=== PATIENT | female | born 1965 | race Caucasian/White ===

== ENCOUNTER 2019-03-31 14:40 | Emergency (ER) | payer MEDICAID, SELFPAY | END 2019-03-31 21:40 | disposition admitted as inpatient to this hospital (09) | LOC: ER 04-30 12:13 | PROVIDERS: Emergency Provider Emergency Medicine; Family Provider Family Medicine | DX: F32.9 Major depressive disorder, single episode, unspecified (principal); R45.851 Suicidal ideations; F17.210 Nicotine dependence, cigarettes, uncomplicated | CPT/HCPCS: 36415; 80053; 80307; 84443; 85025; 99284; 99285 ==

== ENCOUNTER 2019-03-31 14:40 | Inpatient (IN) | payer MEDICAID, SELFPAY ==
[2019-03-31 16:10] VITALS: BP 121/73; PULSE 65; RESP 16; TEMP 36.4; O2SAT 99; BMI 24.1
--- NOTE | 2019-03-31 16:35 | ED_ITS ---
Documented by User: SCOTTIE Diaz 04/01/19 07:03 HPI - Psych General: Chief Complaint: Psychiatric Symptoms Stated Complaint: SI Time Seen by Provider: 03/31/19 16:30 Source: patient Mode of arrival: ambulatory Limitations: no limitations History of Present Illness: HPI Narrative: Patient is a 53-year-old female who presents to ED today reporting worsening depression; patient states she struggled with chronic depression but states over the past couple of weeks she wishes she was ; she often thinks that she does not want a wake up after sl eeping; she has no specific plan; she does tell me she has a previous suicidal attempt by strangulation; reports she was at [facility] a few weeks ago; patient states she used to see a provider over at [facility] [place] but no longer does so; patient seems fixated on qualifying for disability; she states she is went to the disability office several times to qualify for disability due to her chronic pain and mental issues ; states she got mad at [facility] because they said she was mentally stable thus preventing her from obtaining disability; patient reports marijuana use but no other drug or alcohol use MD complaint: suicidal ideation Onset (ago): week(s) Duration: constant History of same: Yes Relieving factors: none Associated psychiatric symptoms: depression and suicidal ideation Associated symptoms: Reports depression and suicidal ideation; Deny auditory hallucinations, visual hallucinations or homicidal ideation Treatments prior to arrival: none Review of Systems Const: Denies: fever or chills Card: Denies: chest pain, palpitations, lightheadedness or syncope Resp: Denies: shortness of breath GI: Denies: abdominal pain, nausea, vomiting or diarrhea Skin/Breast: Denies: rash Neuro: Denies: headache Psych: Reports: anxiety, depression and suicidal ideation; Denies: visual hallucinations, auditory hallucinations or homicidal ideation PFSH ED PFSH: Statuses (acute, chronic, etc) shown below reflect problem list status as previously entered and may not be historically accurate Social History Smoking and tobacco status: current every day smoker Physical Exam Const: COMMON NORMALS: no apparent distress, oriented x3, alert and well nourished GENERAL APPEARANCE: cooperative and well kempt Resp: COMMON NORMALS: normal respiratory effort and clear to auscultation bilaterally AUSCULTATION: clear to auscultation bilaterally Cardio: COMMON NORMALS: regular rate and regular rhythm RATE: regular rate RHYTHM: regular rhythm Neuro: COMMON NORMALS: oriented x3 SENSORIUM/ORIENTATION: Yes alert Psych: COMMON NORMALS: mental status grossly normal, cooperative and speech normal APPEARANCE: Yes well kempt ACTIVITY/MOTOR BEHAVIOR: Yes appropriate eye contact and Yes psychomotor agitation SPEECH: Yes normal speech THOUGHT CONTENT: Yes suicidality ATTENTION/CONCENTRATION: Yes attention grossly impaired and Yes concentration grossly impaired MEMORY/COGNITION: Yes cognition grossly intact INSIGHT: insight good JUDGEMENT: judgment good Skin: COMMON NORMALS: no rashes or lesions noted GENERAL SKIN EXAM: no rashes or lesions noted MDM - Psych Lab Data: Labs: Lab Results 03/31/19 03/31/19 03/31/19 Range/Units 16:44 16:44 16:51 WBC 9.3 (4.0-10.0) 10^3/ uL RBC 4.08 L (4.1-5.3) 10^6/u L Hgb 13.3 (11.5-15.3) g/dL Hct 41.1 (37.0-47.0) % MCV 100.7 H (81-99) fL MCH 32.6 (28.0-34.0) pg MCHC 32.4 (30.0-36.0) g/dL RDW 12.3 (12.1-15.1) % Plt Count 334 (130-400) 10^3/c mm MPV 9.6 (7.4-10.4) fL Neut % (Auto) 61.0 % Lymph % (Auto) 29.4 % Baldwin % (Auto) 5.4 % Eos % (Auto) 2.3 % Baso % (Auto) 1.0 % Neut # (Auto) 5.7 (1.8-7.7) 10^3/u L Lymph # (Auto) 2.7 (0.8-4.8) 10^3/u L Baldwin # (Auto) 0.5 (0.2-0.9) 10^3/u L Eos # (Auto) 0.2 (0.0-0.8) 10^3/u L Baso # (Auto) 0.1 (0.0-0.1) 10^3/u L Nucleated RBC % (a uto) 0 % Nucleated RBCs # 0.0 /100WBC Sodium 138 (136-145) mmol/L Potassium 4.1 (3.5-5.1) mmol/L Chloride 102 (98-107) mmol/L Carbon Dioxide 27 (22-29) mmol/L Anion Gap 13.1 (5-19) BUN 23 H (6-20) mg/dL Creatinine 0.6 (0.5-0.9) mg/dL GFR Calculation 105.4 (90-130) mL/min Glucose 121 H (74-109) mg/dL Calcium 9.8 (8.6-10.0) mg/Dl Total Bilirubin 0.4 (0.15-1.2) mg/dL AST 13 (0-32) U/L ALT 11 (0-33) U/L Alkaline Phosphata se 95 (35-105) IU/L Total Protein 7.1 (6.6-8.7) g/dL Albumin 4.3 (3.5-5.2) g/dL Globulin 2.8 (1.3-4.6) g/dL TSH 0.45 (0.27-4.20) uIU/ mL Salicylates < 0.3 L (3-10) mg/dL Urine Opiates Scre en Negative (Negative) ng/mL Acetaminophen < 5.0 L (10-30) ug/mL Ur Barbiturates Sc reen Negative (Negative) ng/mL Ur Phencyclidine S crn Negative (Negative) ng/mL Ur Amphetamines Sc reen Positive H (Negative) ng/mL U Benzodiazepines Scrn Negative (Negative) ng/mL Urine Cocaine Scre en Negative (Negative) ng/mL U Marijuana (THC) Screen Positive H (Negative) ng/mL Ethyl Alcohol < 10 (0-10) mg/dL Discharge Plan Discharge Patient Disposition: Admitted As Inpatient Admit Provider: Royal Dawson Clinical Impression: Suicidal ideation Condition: Stable Referrals: Jeanette Casanova MD [Family Provider] - Discharge Date/Time: 03/31/19 21:40 Sign Out Sign Out Data: Patient Sign Out occurred on 03/31/19 at 17:47. Patient's care was discussed, and care was transferred from to Karin Soniya [facility]. Coding Level of Care Code ED Fashion Intern for Chg Fwd Exam Problem Focused Documented by User: Karin Owen 03/31/19 18:06 HPI - Psych General: Chief Complaint: Psychiatric Symptoms Stated Complaint: SI Time Seen by Provider: 03/31/19 16:30 PFSH ED PFSH: Statuses (acute, chronic, etc) shown below reflect problem list status as previously entered and may not be historically accurate Social History Smoking and tobacco status: current every day smoker MDM - Psych MDM Narrative: Medical decision making narrative: Case reviewed with Dr. Dawson, he agrees to accept the patient to the [facility]. Lab Data: Attestation: I reviewed the patient's lab results. Labs: Lab Results 03/31/19 03/31/19 03/31/19 Range/Units 16:44 16:44 16:51 WBC 9.3 (4.0-10.0) 10^3/ uL RBC 4.08 L (4.1-5.3) 10^6/u L Hgb 13.3 (11.5-15.3) g/dL Hct 41.1 (37.0-47.0) % MCV 100.7 H (81-99) fL MCH 32.6 (28.0-34.0) pg MCHC 32.4 (30.0-36.0) g/dL RDW 12.3 (12.1-15.1) % Plt Count 334 (130-400) 10^3/c mm MPV 9.6 (7.4-10.4) fL Neut % (Auto) 61.0 % Lymph % (Auto) 29.4 % Baldwin % (Auto) 5.4 % Eos % (Auto) 2.3 % Baso % (Auto) 1.0 % Neut # (Auto) 5.7 (1.8-7.7) 10^3/u L Lymph # (Auto) 2.7 (0.8-4.8) 10^3/u L Baldwin # (Auto) 0.5 (0.2-0.9) 10^3/u L Eos # (Auto) 0.2 (0.0-0.8) 10^3/u L Baso # (Auto) 0.1 (0.0-0.1) 10^3/u L Nucleated RBC % (a uto) 0 % Nucleated RBCs # 0.0 /100WBC Sodium 138 (136-145) mmol/L Potassium 4.1 (3.5-5.1) mmol/L Chloride 102 (98-107) mmol/L Carbon Dioxide 27 (22-29) mmol/L Anion Gap 13.1 (5-19) BUN 23 H (6-20) mg/dL Creatinine 0.6 (0.5-0.9) mg/dL GFR Calculation 105.4 (90-130) mL/min Glucose 121 H (74-109) mg/dL Calcium 9.8 (8.6-10.0) mg/Dl Total Bilirubin 0.4 (0.15-1.2) mg/dL AST 13 (0-32) U/L ALT 11 (0-33) U/L Alkaline Phosphata se 95 (35-105) IU/L Total Protein 7.1 (6.6-8.7) g/dL Albumin 4.3 (3.5-5.2) g/dL Globulin 2.8 (1.3-4.6) g/dL TSH 0.45 (0.27-4.20) uIU/ mL Salicylates < 0.3 L (3-10) mg/dL Urine Opiates Scre en Negative (Negative) ng/mL Acetaminophen < 5.0 L (10-30) ug/mL Ur Barbiturates Sc reen Negative (Negative) ng/mL Ur Phencyclidine S crn Negative (Negative) ng/mL Ur Amphetamines Sc reen Positive H (Negative) ng/mL U Benzodiazepines Scrn Negative (Negative) ng/mL Urine Cocaine Scre en Negative (Negative) ng/mL U Marijuana (THC) Screen Positive H (Negative) ng/mL Ethyl Alcohol < 10 (0-10) mg/dL Discharge Plan Discharge Patient Disposition: Admitted As Inpatient Admit Provider: Royal Dawson Clinical Impression: Suicidal ideation Condition: Stable Referrals: Jeanette Casanova MD [Family Provider] - Discharge Date/Time: 03/31/19 21:40 Sign Out Sign Out Data: Patient Sign Out occurred on 03/31/19 at 17:47. Patient's care was discussed, an d care was transferred from to Karin Owen. Coding Level of Care Code ED Fashion Intern for Chg Fwd Exam Problem Focused
[2019-03-31 16:49] LABS: Basophils # 0.1 10^3/uL (0.0-0.1); Eosinophils # 0.2 10^3/uL (0.0-0.8); Eosinophils % 2.3 %; Hematocrit 41.1 % (37.0-47.0); Hemoglobin 13.3 g/dL (11.5-15.3); Lymphocytes # 2.7 10^3/uL (0.8-4.8); Lymphocytes % 29.4 %; Mean Corpuscular HGB Conc 32.4 g/dL (30.0-36.0); Mean Corpuscular Hemoglobin 32.6 pg (28.0-34.0); Mean Corpuscular Volume 100.7 fL (81-99); Mean Platelet Volume 9.6 fL (7.4-10.4); Monocytes # 0.5 10^3/uL (0.2-0.9); Monocytes % 5.4 %; Neutrophils # 5.7 10^3/uL (1.8-7.7); Nucleated Red Blood Cells % 0 %; Platelet Count 334 10^3/cmm (130-400); Red Blood Count 4.08 10^6/uL (4.1-5.3); Red Cell Distribution Width 12.3 % (12.1-15.1); White Blood Count 9.3 10^3/uL (4.0-10.0)
[2019-03-31 17:21] LABS: Alanine Aminotransferase 11 U/L (0-33); Albumin Level 4.3 g/dL (3.5-5.2); Alkaline Phosphatase 95 IU/L (35-105); Anion Gap 13.1 (5-19); Aspartate Amino Transferase 13 U/L (0-32); Blood Urea Nitrogen 23 mg/dL (6-20); Calcium 9.8 mg/Dl (8.6-10.0); Carbon Dioxide 27 mmol/L (22-29); Chloride 102 mmol/L (98-107); Globulin 2.8 g/dL (1.3-4.6); Glomerular Filtration Rate 105.4 mL/min (90-130); Glucose 121 mg/dL (74-109); Potassium 4.1 mmol/L (3.5-5.1); Sodium 138 mmol/L (136-145); Thyroid Stimulating Hormone 0.45 uIU/mL (0.27-4.20); Total Bilirubin 0.4 mg/dL (0.15-1.2); Total Protein 7.1 g/dL (6.6-8.7)
[2019-03-31 17:29] LABS: Acetaminophen < 5.0 ug/mL (10-30); Alcohol Level < 10 mg/dL (0-10); Salicylate < 0.3 mg/dL (3-10)
[2019-03-31 18:46] LABS: Amphetamines Screen Urine Positive (Negative); Barbiturates Screen Urine Negative (Negative); Benzodiazepines Screen Urine Negative (Negative); Cocaine Screen Urine Negative (Negative); Opiate Screen Urine Negative (Negative); PCP Screen Urine Negative (Negative); THC Screen Urine Positive (Negative)
[2019-03-31 21:39] VITALS: BP 115/74; PULSE 68; RESP 16; O2SAT 98
[2019-03-31 22:00] VITALS: BP 129/89; PULSE 69; RESP 19; TEMP 37.4; O2SAT 97
[2019-04-01 06:00] VITALS: BP 127/77; PULSE 67; RESP 19; TEMP 36.4; O2SAT 95
--- NOTE | 2019-04-01 10:13 | P.HP_ITS ---
Providers/Chief Complaint Admitting Physician: Royal Dawson MD Chief Complaint: SI HPI [facility] History of Present Illness Chief complaint: I've been under too much stress. I started looking out. I'm been sleeping. So I came here. History of present illness: Arcelia Patterson Is a 53-year-old woman who complains at first that she is not sleeping and then later complains that she seems to be sleeping all the time. It is noted that her urine drug screen was positive for amphetamines at the time of admission. When asked about her last amphetamine use, she said that she used to take the methylphenidate years ago. She could not explain the amphetamines in her urine. When asked what we can do to help her, she said that she wanted us to help her to get her disability. She denied having suicidal or homicidal ideation. She denied the presence of auditory or visual hallucinations. She does use marijuana, once in a while . Her urine drug screen was also positive for marijuana. She takes Prozac and says that it does not help her. She says that she has been treated for depression for over 20 years. She been tried on a number of different medications and have provided any benefit. She did say that she took Seroquel 10 years ago caused her to have excessive weight gain to be tired all the time. He engages in no goal directed activities. She is unemployed. She looks forward to seeing her grandson one day every 2 weeks. ER note: HPI Narrative: Patient is a 53-year-old female who presents to ED today reporting worsening depression; patient states she struggled with chronic depression but states over the past couple of weeks she wishes she was ; she often thinks that she does not want a wake up after sleeping; she has no specific plan; she does tell me she has a previous suicidal attempt by strangulation; reports she was at [facility] a few weeks ago; patient states she used to see a provider over at [facility] but no longer does so; patient seems fixated on qualifying for disability; she states she is went to the disability office several times to qualify for disability due to her chronic pain and mental issues ; states she got mad at [facility] because they said she was mentally stable thus preventing her from obtaining disability; patient reports marijuana use but no other drug or alcohol use Mental health history:She states that she was hospitalized 3 times in a year trying to get disability. Past records of hospitalizations at this unit are unavailable. Social history:She grew up in [place]. She moved to different areas of her family. She moved to this area 25 years ago as her 's parents lived here. She has a daughter 24 years old and a grandson. Legal history:In November 2016 she was given a criminal charge for having a car that had no Muffler. She has had multiple traffic fines but no other arrests or convictions for felonies. Past medical history:See emergency room nursing notes Mental Status Exam: The patient is a disheveled bleary eyed woman appearing approximately her stated age. She is not believed to be reliable informative due to the multiple contradictions that she gives in her story and her inability to provide a reasonable explanation for her urine to be positive for amphetamines. For instance, she claimed that she could not be employed at one place because she could not add or subtract. She then was able to calculate the date, however long she been , how old her daughter had been an figure out how long she had been living in this area all with out the benefit of a calculator or pencil and paper. Appearance: hygiene is Poor; no gross neurological deficits., gait is unremarkable; AIMS=0 Speech: Speech is of normal rate and rhythm and easily understood. Thought processes: Thought processes are abstract. Judgment is adequate for safety. Associations: intact Psychotic processes: There is no indication of guarding or paranoia. There is no attention to the internal stimuli. Auditory and visual hallucinations are denied. Judgment: Insight is Good. Problem solving skills are adequate for safety. Orientation: The patient is oriented to person, place time and situation. Memory: no deficits noted in immediate, intermediate, or remote spheres. Attention: The patient is alert and interpersonally engaged. Language: Verbalizations are coherent. Fund of knowledge: Fund of knowledge is adequate. Affect/Mood: Affect is consistent with a Euthymic mood. Denying suicidal ideation Affective range iappropriate. Psychosis: perception unimpaired except through cognitive distortion; reality testing intact. Diagnoses:amphetamine intoxication Assessment:Patient does not meet criteria for clinical depression. However she does present consistent with amphetamine intoxication and her urine drug screen is positive for such. Treatment plan: Due to the psychiatric conditions and treatment listed in the Assessment and Plan - the patient requires continued hospitalization. Will provide a safe and therapeutic environment for patient.. Will continue inpatient treatment to allow for medication adjustment and monitoring. Will continue q15 min safety checks. Will continue Home medications and monitor for medication side effects. Monitor patient's mood, sleep, appetite, and behavior closely. Encourage patient to participate in individual and group therapeutic sessions on the cumimns. Estimated length of stay 5 days The expected benefits and potential side effects of patient's psychiatric medications were discussed with the patient. The patient understands and consents to treatment.CRITERIA FOR DISCHARGE: stable on medications and no longer an im Meds [facility] Home Medications Medication Instructions Recorded Confirmed Type acetaminophen [Tylenol Extra 500 mg PO Q4H PRN 03/31/19 03/31/19 History Strength] albuterol sulfate [ProAir HFA] 2 puff INHALATION Q4H PRN 03/31/19 03/31/19 History ergocalciferol (vitamin D2) See Rx Instructions .ROUTE .COMPLEX 03/31/19 03/31/19 History [Vitamin D2] famotidine 20 mg PO BID 03/31/19 03/31/19 History fluoxetine 40 mg PO DAILY 03/31/19 03/31/19 History fluoxetine [Prozac] 20 mg PO DAILY 03/31/19 03/31/19 History gabapentin 300 mg PO TID 03/31/19 03/31/19 History levothyroxine 125 mcg PO DAILY 03/31/19 03/31/19 History meloxicam 15 mg PO DAILY 03/31/19 03/31/19 History polyethylene glycol 3350 17 g PO DAILY PRN 03/31/19 03/31/19 History simvastatin 20 mg PO DAILY 03/31/19 03/31/19 History Allergies Allergy/AdvReac Type Severity Reaction Status Date / Time cefdinir Allergy ALGY-Anaphy Verified 03/31/19 16:17 laxis PFSH [facility] PFSH: Statuses (acute, chronic, etc) shown below reflect problem list status as previously entered and may not be historically accurate Social History Smoking and tobacco status: current every day smoker Vitals/I&O/Wt Last Vital Signs Temp 97.6 F 04/01/19 06:00 Pulse 67 04/01/19 06:00 Resp 19 H 04/01/19 06:00 BP 127/77 04/01/19 06:00 Pulse Ox 95 04/01/19 06:00 Weight last 48 hrs Weight 65.771 kg Data [facility] Labs: Other Labs: urine drug screen Involuntary Hold Information 96 Hour Hold: 96 Hour Involuntary Admission: No Attestations [facility] Medical Necessity Statement*: Patient will remain in the hospital another 2-3 more nights while her amphetamine intoxication resolves. Coding Level of Care Code Acute Regional Psychiatric Director for Remington Parada
[2019-04-01] MEDS: atorvastatin 40 mg Tablet 20 MG PO (13:52)
[2019-04-01] MEDS: meloxicam 7.5 mg tablet 15 MG PO (13:52)
[2019-04-01] MEDS: levothyroxine 125 mcg Tablet PO (13:53)
[2019-04-01] MEDS: fluoxetine 20 mg Capsule 40 MG PO (13:53)
[2019-04-01 13:55] VITALS: BP 118/70; PULSE 70; RESP 18; TEMP 37.2; O2SAT 98
[2019-04-01] MEDS: acetaminophen 325 mg Tablet 650 MG PO (15:41)
[2019-04-01] MEDS: gabapentin 300 mg Capsule PO ×2 (15:42→21:27)
[2019-04-01] MEDS: famotidine 20 mg Tablet PO (18:17)
[2019-04-01 19:55] VITALS: BP 128/82; PULSE 76; RESP 17; TEMP 37.2; O2SAT 97
[2019-04-01 23:03] VITALS: PULSE 88; RESP 16
[2019-04-02 06:00] VITALS: BP 131/82; PULSE 66; RESP 16; TEMP 36.9; O2SAT 97
[2019-04-02] MEDS: atorvastatin 40 mg Tablet 20 MG PO (09:26)
[2019-04-02] MEDS: levothyroxine 125 mcg Tablet PO (09:26)
[2019-04-02] MEDS: gabapentin 300 mg Capsule PO (09:26)
[2019-04-02] MEDS: fluoxetine 20 mg Capsule 40 MG PO (09:26)
[2019-04-02] MEDS: meloxicam 7.5 mg tablet 15 MG PO (09:26)
[2019-04-02] MEDS: famotidine 20 mg Tablet PO (09:26)
[2019-04-02 11:40] VITALS: BP 115/74; PULSE 88; RESP 16; TEMP 36.9; O2SAT 97
[2019-04-02] MEDS: acetaminophen 325 mg Tablet 650 MG PO (11:41)
[2019-04-02 11:42] VITALS: BP 115/74; PULSE 88; RESP 16; TEMP 36.9; O2SAT 97
[2019-04-02] MEDS: blistex lip oint 7 gm Tube 1 APPLIC TOPICAL (11:42)
[2019-04-02 11:59] VITALS: BP 115/74; PULSE 88; RESP 16; TEMP 36.9; O2SAT 97
--- NOTE | 2019-04-02 14:45 | PM.NDC ---
Diagnoses at Discharge Discharge Diagnosis (1) Amphetamine abuse: Status: Resolved Reason for Visit Reason for Visit: Reason For Visit: SI Hospital Course Discharge Summary Providers/Chief Complaint Admitting Physician: Royal Dawson MD Chief Complaint: SI HPI [facility] History of Present Illness Chief complaint: I've been under too much stress. I started looking out. I'm been sleeping. So I came here. History of present illness: Arcelia Patterson Is a 53-year-old woman who complains at first that she is not sleeping and then later complains that she seems to be sleeping all the time. It is noted that her urine drug screen was positive for amphetamines at the time of admission. When asked about her last amphetamine use, she said that she used to take the methylphenidate years ago. She could not explain the amphetamines in her urine. When asked what we can do to help her, she said that she wanted us to help her to get her disability. She denied having suicidal or homicidal ideation. She denied the presence of auditory or visual hallucinations. She does use marijuana, once in a while . Her urine drug screen was also positive for marijuana. She takes Prozac and says that it does not help her. She says that she has been treated for depression for over 20 years. She been tried on a number of different medications and have provided any benefit. She did say that she took Seroquel 10 years ago caused her to have excessive weight gain to be tired all the time. He engages in no goal directed activities. She is unemployed. She looks forward to seeing her grandson one day every 2 weeks. ER note: HPI Narrative: Patient is a 53-year-old female who presents to ED today reporting worsening depression; patient states she struggled with chronic depression but states over the past couple of weeks she wishes she was ; she often thinks that she does not want a wake up after sleeping; she has no specific plan; she does tell me she has a previous suicidal attempt by strangulation; reports she was at [facility] a few weeks ago; patient states she used to see a provider over at [facility] but no longer does so; patient seems fixated on qualifying for disability; she states she is went to the disability office several times to qualify for disability due to her chronic pain and mental issues ; states she got mad at [facility] because they said she was mentally stable thus preventing her from obtaining disability; patient reports marijuana use but no other drug or alcohol use Mental health history:She states that she was hospitalized 3 times in a year trying to get disability. Past records of hospitalizations at this unit are unavailable. Social history:She grew up in [place]. She moved to different areas of her family. She moved to this area 25 years ago as her 's parents lived here. She has a daughter 24 years old and a grandson. Legal history:In November 2016 she was given a criminal charge for having a car that had no Muffler. She has had multiple traffic fines but no other arrests or convictions for felonies. Past medical history:See emergency room nursing notes Involuntary Hold Information 96 Hour Hold: 96 Hour Involuntary Admission: No Mental Status Exam MSE Comments: Mental Status Exam: The patient is an interpersonally engaged woman appearing approximately her stated age. She is not believed to be reliable informative due to the multiple contradictions that she gives in her story Appearance: hygiene is fair; no gross neurological deficits., gait is unremarkable; AIMS=0 Speech: Speech is of normal rate and rhythm and easily understood. Thought processes: Thought processes are abstract. Judgment is adequate for safety. Associations: intact Psychotic processes: There is no indication of guarding or paranoia. There is no attention to the internal stimuli. Auditory and visual hallucinations are denied. Judgment: Insight is Good. Problem solving skills are adequate for safety. Orientation: The patient is oriented to person, place time and situation. Memory: no deficits noted in immediate, intermediate, or remote spheres. Attention: The patient is alert and interpersonally engaged. Language: Verbalizations are coherent. Fund of knowledge: Fund of knowledge is adequate. Affect/Mood: Affect is consistent with a Euthymic mood. Denying suicidal ideation Affective range iappropriate. Psychosis: perception unimpaired except through cognitive distortion; reality testing intact. Discharge Data Vitals: Last Vital Signs Temp 98.4 F 04/02/19 11:59 Pulse 88 04/02/19 11:59 Resp 16 04/02/19 11:59 BP 115/74 04/02/19 11:59 Pulse Ox 97 04/02/19 11:59 Discharge Plan Discharge Patient Disposition: Home, Self-Care Condition: Stable Prescriptions: Continued Tylenol Extra Strength 500 mg Tablet 500 mg PO Q4H PRN (Reason: Pain) RF: 0 Vitamin D2 50,000 unit capsule See Rx Instructions .ROUTE .COMPLEX RF: 0 fluoxetine 40 mg capsule 40 mg PO DAILY Qty: 30 RF: 3 meloxicam 15 mg tablet 15 mg PO DAILY Qty: 30 RF: 3 famotidine 20 mg tablet 20 mg PO BID Qty: 30 RF: 3 simvastatin 20 mg tablet 20 mg PO DAILY Qty: 30 RF: 3 levothyroxine 125 mcg tablet 125 mcg PO DAILY Qty: 30 RF: 3 gabapentin 300 mg capsule 300 mg PO TID Qty: 90 RF: 3 polyethylene glycol 3350 17 gram/dose powder 17 g PO DAILY PRN (Reason: unknown) Qty: 15 RF: 3 ProAir HFA 90 mcg/actuation Hfa Aerosol Inhaler 2 puff INHALATION Q4H PRN (Reason: Shortness Of Breath) Qty: 1 RF: 3 Discontinued fluoxetine [Prozac] 20 mg Capsule 20 mg PO DAILY RF: 0 Discharge Orders: Discharge Order (Routine); Ordered 04/02/19 Ordered By: Ricky Coleman Referrals: Jeanette Casanova MD [Family Provider] - Discharge Diet: Advance as tolerated Discharge Activity: Increase activity as tolerated Activity Restrictions/Additional Instructions: Follow-up with an outpatient provider of choice within 3-5 days of discharge, if possible. You will need an intake at [facility] in order to scheduled appointments. If you need a medicaid ride to do intake call [facility] for assistance on what day you should call a ride, the time to give medicaid transport and the provider name who will see you for the intake. Intakes are done during the walk-in hours at [facility]. [facility] ([facility]) [address] [place] [id number] Be sure to request outpatient mental health services, including psychiatric medication management, individual therapy and case management. 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
== END 2019-04-02 13:12 | disposition home or self-care (01) | DRG 897 ==
LOC: ER 18:06 → NP 18:37
PROVIDERS: Physician Assistant; Admitting Provider Psychiatry & Neurology Psychiatry; Emergency Provider Emergency Medicine; Family Provider Family Medicine; Visit Provider Psychiatry & Neurology Psychiatry
DX: F15.129 Other stimulant abuse with intoxication, unspecified (principal); R45.851 Suicidal ideations; Z88.8 Allergy status to other drugs, medicaments and biological substances; Z79.899 Other long term (current) drug therapy; Z79.890 Hormone replacement therapy; F17.200 Nicotine dependence, unspecified, uncomplicated
CPT/HCPCS: 12345; 36415; 80053; 80307; 84443; 85025; 99284

== ENCOUNTER 2019-05-16 06:00 | Outpatient (RCR) | payer MEDICAID, SELFPAY | END 2019-06-15 23:59 | disposition home or self-care (01) | LOC: WPT 06:00 | PROVIDERS: Family Provider Family Medicine; PCP Family Medicine; Referring Provider Family Medicine; Visit Provider Family Medicine | DX: G89.4 Chronic pain syndrome (principal); M54.5 Low back pain | CPT/HCPCS: 97110; 97161 ==

== ENCOUNTER 2019-08-05 06:00 | Outpatient (RCR) | payer SELFPAY | END 2019-08-15 23:59 | disposition home or self-care (01) | LOC: WPT 06:00 | PROVIDERS: PCP Family Medicine; Visit Provider Family Medicine | DX: M54.5 Low back pain (principal) | CPT/HCPCS: 97110; 97162; 97530 ==

== ENCOUNTER 2019-08-16 06:00 | Outpatient (RCR) | payer MEDICAID, SELFPAY | END 2019-09-14 23:59 | disposition home or self-care (01) | LOC: WPT 06:00 | PROVIDERS: PCP Family Medicine; Visit Provider Family Medicine | DX: G89.29 Other chronic pain (principal); M54.5 Low back pain | CPT/HCPCS: 97032; 97110; 97530 ==

== ENCOUNTER 2019-09-15 06:00 | Outpatient (RCR) | payer SELFPAY | END 2019-10-15 23:59 | disposition home or self-care (01) | LOC: WPT 06:00 | PROVIDERS: PCP Family Medicine; Visit Provider Family Medicine | DX: M54.5 Low back pain (principal) | CPT/HCPCS: 97110 ==

== ENCOUNTER → 2019-12-21 11:07 | Outpatient (BNVA) | payer MEDICAID, SELFPAY | PROVIDERS: PCP Family Medicine; Visit Provider Licensed Practical Nurse | DX: M51.9 Unspecified thoracic, thoracolumbar and lumbosacral intervertebral disc disorder (principal); Z98.890 Other specified postprocedural states; F17.210 Nicotine dependence, cigarettes, uncomplicated | CPT/HCPCS: 99214 ==

== ENCOUNTER 2020-02-15 09:33 | Outpatient (CLI) | payer MEDICAID, SELFPAY ==
--- NOTE | 2020-02-15 09:49 | MR_ITS ---
WS: [id number] MRI LUMBAR SPINE WITH AND WITHOUT CONTRAST. HISTORY: Low back pain COMPARISON: 04/03/2011 TECHNIQUE: Sagittal and axial multisequence imaging is submitted. Sagittal and axial T1 fat sat seque nces post-ProHance 15 cc IV. Mild increase in thoracic kyphosis. Degenerative disc disease throughout the cervical and thoracic sp isidro. Mild straightening of the normal lumbar lordosis. Prior anterior plate and screw fusion at L5-S1. L4 retrolisthesis by 2 mm. Disc spaces are mildly narrowed throughout the lumbar spine. Facet joint arthritis on the RIGHT at T1 1-12 with mild narrowing of the LEFT foramen. Conus terminates normally at L1-2 disc level. L1-L2: Mild annular bulging of the disc and osteophytes without stenosis. L2-L3: Mild annular disc bulging with a focal LEFT lateral recess and subarticular disc protrusion ab utting the L3 nerve root and displacing and extending into the foramen. Mild LEFT foraminal narrowing . L3-L4: Mild annular disc bulging and osteophytic ridging and facet arthritis. No significant stenosis . L4-L5: Mild annular disc bulging and osteophytic ridging. Nerve roots are becoming distributed in the periphery of the thecal sac. Moderate facet joint arthritis resulting in moderate LEFT and mild RIGH T foraminal stenosis. L5-S1: Patulous thecal sac with facet joint arthritis. Soft tissue nodule seen best on the sagittal T 1 sequence in the RIGHT foramen. On the postcontrast images this soft tissue enhances and was also pr esent on the study from 2011 suggesting this is scar formation and gliosis and not a disc protrusion. No discitis or osteomyelitis. There is mild enhancement around the facet joint at L3-4. MR/MR lumbar spine wo/w con [id number] IMPRESSION: 1. Status post anterior lumbar fusion with interbody spacer at L5-S1 with no r ecurrent stenosis. 2. Moderate LEFT and mild RIGHT foraminal stenosis at L4-5 due to disc disease and facet arthritis. 3. Small to moderate disc protrusion at L2-3 extending into the LEFT lateral r ecess and subarticular foramen with displacement of the L3 nerve root. 4. RIGHT T11-12 foraminal narrowing due to facet joint disease.
== END 2020-02-15 09:34 | disposition home or self-care (01) ==
PROVIDERS: PCP Family Medicine; Visit Provider Licensed Practical Nurse
DX: M51.26 Other intervertebral disc displacement, lumbar region (principal); M48.061 Spinal stenosis, lumbar region without neurogenic claudication; M43.27 Fusion of spine, lumbosacral region
CPT/HCPCS: 72158; A9579

== ENCOUNTER 2021-10-02 18:21 | Inpatient (IN) | payer MEDICAID, SELFPAY ==
[2021-10-02 19:20] VITALS: BP 114/79; PULSE 115; RESP 18; TEMP 37.1; O2SAT 98; BMI 23.0
--- NOTE | 2021-10-02 19:38 | ED_ITS ---
HPI - General Adult General: Chief complaint: Psychiatric Symptoms Stated complaint: back pain, psych eval Time Seen by Provider: 10/02/21 19:27 History of Present Illness: [55]yo patient w/ hx of depression BIBA for depression. He tells me that she is depressed and wants to jump in front of a semi. On arrival, the patient is AAOx3 and cooperative with my evaluation. No focal complaints of chest pain, shortness of breath, palpitations, N/V, focal GI/ complaints. Currently denies HI. No complaints of hallucinations. Onset: acute Duration: ongoing Location: home Severity: severe Associated symptoms: Deny chest pain, dyspnea, nausea, rash, palpitations or vomiting Review of Systems Const: Denies: fever(s) or chills Eyes: Denies: change in vision ENMT: Denies: mouth pain Card: Denies: chest pain or palpitations Resp: Denies: dyspnea or non-productive cough GI: Denies: abdominal pain, nausea, vomiting or diarrhea : Denies: dysuria Musc: Denies: extremity pain Skin/Breast: Denies: rash or new lesions Neuro: Denies: weakness in extremities Psych: Reports: depression Hugo/Lymph: Denies: easy bruising PFSH ED PFSH: Medical History Depression Hypothyroidism Lumbar disc disease Lumbar spondylosis Surgical History H/O tubal ligation History of lumbar surgery 2008 Dr Geiger L5-S1 ALIFF Family History Grandmother Cancer Diabetes Grandfather Cancer Father Diabetes Mother Diabetes Social History Smoking and tobacco status: current every day smoker Alcohol intake: never Household members: spouse Marital status: Current occupational status: disabled History of recent travel: No Physical Exam Const: COMMON NORMALS: alert HENMT: COMMON NORMALS: atraumatic HEAD & SCALP: atraumatic MOUTH: moist mucous membranes not abnormal Eye: COMMON NORMALS: EOMs intact bilaterally and conjunctivae normal CONJUNCTIVA: Yes conjunctivae normal Neck/C-Spine: COMMON NORMALS: full ROM and supple Resp: COMMON NORMALS: normal respiratory effort and clear to auscultation bilaterally AUSCULTATION: clear to auscultation bilaterally Cardio: COMMON NORMALS: regular rate RATE: regular rate GI: COMMON NORMALS: Soft to palpation and non-tender PALPATION: Yes Soft to palpation Extremity: COMMON NORMALS: full ROM Neuro: SENSORIUM/ORIENTATION: Yes alert MOTOR EXAM: No Abnormal motor strength present and Other motor observations present (no focal motor deficits) Psych: COMMON NORMALS: speech normal SPEECH: Yes normal speech MOOD & AFFECT: Yes depressed mood Course Vital Signs: Vital signs: Vital Signs Temperature 98.8 F 10/02/21 19:20 Pulse Rate 115 H 10/02/21 19:20 Respiratory Rate 18 10/02/21 19:20 Blood Pressure 114/79 10/02/21 19:20 Pulse Oximetry 98 10/02/21 19:20 MDM - General Adult Medical Decision Making [55]yo patient w/ hx of depression presenting for depression. HDS, exam within normal limit Thoughts are linear and organized, and the patient has no AH/VH, or HI. Clinically the patient displays no overt toxidrome; they are well appearing, with low suspicion for toxic ingestion given history and exam. Symptoms unlikely 2/2 anemia, hypothyroidism, infection, or ICH. Workup: CBC, CMP, Lipase, salicylate/tylenol, serum ethanol, UDS, TSH/free T4, covid antigen, EKG, XR chest Lab findings: wnl [55] On reassessment, labs and workup wnl. Patient is hemodynamically stable with no acute medical complaints. Case discussed with psychiatric provider [] at [facility] psych inpatient with recommendation for admission Disposition: Psych Discharge Plan Discharge Patient Disposition: Admitted As Inpatient Clinical Impression: Depression with suicidal ideation Condition: Stable Coding Level of Care Code ED Service Unit Operator Oil Well for Chg Fwd Exam Comprehensive
--- NOTE | 2021-10-02 19:59 | XRR_ITS ---
PROCEDURE INFORMATION: Exam: XR Chest Exam date and time: 10/02/2021 8:03 PM Age: 55 years old Clinical indication: Screening exam; Other screening; Additional info: Psych clearance TECHNIQUE: Imaging protocol: Radiologic exam of the chest. Views: 1 view. COMPARISON: CR Shoulder 2+ views RIGHT* [id number] 07/31/2018 8:09 PM FINDINGS: Lungs: No consolidation. Pleural spaces: Unremarkable. No pleural effusion. No pneumothorax. Heart/Mediastinum: No cardiomegaly. Bones/joints: Bilateral lateral mid rib deformity suggesting old healed fracture. XR/XR chest 1V portable [id number] IMPRESSION: No acute findings.
--- NOTE | 2021-10-02 19:59 | ECG_ITS ---
[facility] Test Date: 2021-10-02 Pat Name: Arcelia Patterson Department: Room: Gender: Female First Officer And Flight Instructor: : 1965 Requested By: Denzel Pineda Order Number: [id number] Malena MD: Etelvina David M.D. Measurements Intervals [place] Rate: 94 P: 69 NE: 153 QRS: 73 QRSD: 98 T: 62 QT: 343 QTc: 431 Interpretive Statements SINUS RHYTHM POSSIBLE RIGHT VENTRICULAR CONDUCTION DELAY [RSR (QR) IN V1/V2] No previous ECG available for comparison Electronically Signed On 10-02-2021 20:58:06 CDT by Etelvina David M.D. [id number]
[2021-10-02 20:16] LABS: Basophils # 0.1 10^3/uL (0.0-0.1); Basophils % 1.2 %; Eosinophils # 0.3 10^3/uL (0.0-0.8); Hematocrit 36.7 % (37.0-47.0); Hemoglobin 11.6 g/dL (11.5-15.3); Lymphocytes # 3.9 10^3/uL (0.8-4.8); Lymphocytes % 38.2 %; Mean Corpuscular HGB Conc 31.6 g/dL (30.0-36.0); Mean Corpuscular Hemoglobin 30.9 pg (28.0-34.0); Mean Corpuscular Volume 97.6 fl (81-99); Monocytes # 0.6 10^3/uL (0.2-0.9); Monocytes % 5.6 %; Neutrophils # 5.22 10^3/uL (1.8-7.7); Neutrophils % 50.8 %; Nucleated Red Blood Cells % 0 %; Platelet Count 405 10^3/cmm (130-400); Red Blood Count 3.76 10^6/uL (4.1-5.3); Red Cell Distribution Width 12.3 % (12.1-15.1); White Blood Count 10.3 10^3/uL (4.0-10.0)
[2021-10-02 20:50] LABS: Alanine Aminotransferase 13 U/L (0-33); Albumin Level 4.2 g/dL (3.5-5.2); Alkaline Phosphatase 101 IU/L (35-105); Anion Gap 18.4 (5-19); Aspartate Amino Transferase 12 U/L (0-32); Blood Urea Nitrogen 31 mg/dL (6-20); Calcium 9.7 mg/dL (8.5-10.5); Carbon Dioxide 22 mmol/L (22-29); Chloride 101 mmol/L (98-107); Globulin 2.9 g/dL (1.3-4.6); Glucose 106 mg/dL (65-115); Lipase 57 U/L (13-60); Osmolality Calculated 291 mOsm/kg (285-295); Potassium 4.4 mmol/L (3.5-5.1); Sodium 137 mmol/L (136-145); Thyroid Stimulating Hormone 0.43 uIU/mL (0.27-4.20); Total Bilirubin 0.3 mg/dL (0.15-1.2); Total Protein 7.1 g/dL (6.6-8.7)
[2021-10-02 20:52] LABS: Acetaminophen < 5.0 ug/mL (10-30); Alcohol Level < 10 mg/dL (0-10); Salicylate < 0.3 mg/dL (3-10)
[2021-10-02 20:52] LABS: SARS Covid-2 Antigen Negative (Negative)
[2021-10-02 21:20] LABS: Amphetamines Screen Urine Negative (Negative); Barbiturates Screen Urine Negative (Negative); Benzodiazepines Screen Urine Negative (Negative); Cocaine Screen Urine Negative (Negative); Opiate Screen Urine Negative (Negative); PCP Screen Urine Negative (Negative); THC Screen Urine Negative (Negative)
[2021-10-02 22:19] LABS: Free T4 Free Thyroxine 1.35 ng/dL (0.82-1.77)
[2021-10-02 22:37] LABS: HIV 1 & 2 Antibody Non-Reactive (Non-Reactiv); HIV 1 & 2 Antigen Non-Reactive (Non-Reactiv)
[2021-10-02] MEDS: acetaminophen 500 mg Tablet PO (22:40)
[2021-10-02 22:56] LABS: Hepatitis A Antibody IgM Non-Reactive (Nonreactive); Hepatitis B Core IgM Non-Reactive (Nonreactive); Hepatitis B Surface Antigen Non-Reactive (Nonreactive); Hepatitis C Virus Antibody Non-Reactive (Nonreactive)
[2021-10-03 01:03] VITALS: BP 120/76; PULSE 88; RESP 18; O2SAT 96
[2021-10-03 03:02] LABS: Adenovirus Not Detected (NOT DETECT); Chlamydia Pneumoniae Not Detected (NOT DETECT); Coronavirus 229E,HKU1,NL63,OC4 Not Detected (NOT DETECT); Human Metapneumovirus Not Detected (NOT DETECT); Human Rhinovirus/Enterovirus Not Detected (NOT DETECT); Influenza A Not Detected (NOT DETECT); Influenza A H1 Not Detected (NOT DETECT); Influenza A H1-2009 Not Detected (NOT DETECT); Influenza A H3 Not Detected (NOT DETECT); Influenza B Not Detected (NOT DETECT); Mycoplasma Pneumoniae Not Detected (NOT DETECT); Parainfluenza Virus Type 1 Not Detected (NOT DETECT); Parainfluenza Virus Type 2 Not Detected (NOT DETECT); Parainfluenza Virus Type 3 Not Detected (NOT DETECT); Parainfluenza Virus Type 4 Not Detected (NOT DETECT); Respiratory Syncytial Virus A Not Detected (NOT DETECT); Respiratory Syncytial Virus B Not Detected (NOT DETECT); SARS-COV-2 Not Detected (NOT DETECT)
[2021-10-03 05:07] VITALS: BP 121/77; PULSE 77; RESP 18; O2SAT 97
--- NOTE | 2021-10-03 09:12 | PC.PHAR ---
UNABLE TO VERIFY MEDICATIONS WITH PT-MEDICATIONS ENTERED ARE MEDS THAT HAVE BEEN FILLED RECENTLY-[facility] F[facility] CLINDAMYCIN 150MG CAPS TAKE 150MG Q8H ON 09/29/21 #63 FOR 7D/S-RX WRITTEN FOR 150MG CAPS TAKE 450MG Q8H ON 09/29/21 7 D/S- [facility] LA[facility] FILLED LATUDA ON 08/03/21 FOR 40MG QPM STATES NO REFILLS REMAINING NOTES ARE MADE IN THE PHARMACY COMMENTS WITH LAST DAY FILLED AND D/S
[2021-10-03] MEDS: acetaminophen 500 mg Tablet 1000 MG PO (09:42)
[2021-10-03 11:32] VITALS: BP 118/82; PULSE 73; RESP 18; TEMP 36.6; O2SAT 96
[2021-10-03] MEDS: nicotine 2 mg Gum BUCCAL (12:42)
[2021-10-03] MEDS: OLANZapine 5 mg ODT PO (12:43)
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
--- NOTE | 2021-10-03 13:13 | PC.NURSE ---
ALL MEDICATIONS RECONCILED AND STARTED. PT WENT TO URGENT CARE YESTERDAY AND WAS STARTED ON CLINDAMYCIN FOR TOOTH ABSCESS. ORDERED CONTINUED FOR 6 MORE DAYS ORDERED.
[2021-10-03 14:00] VITALS: BP 118/82; PULSE 73; RESP 18; TEMP 36.6; O2SAT 96
[2021-10-03] MEDS: clindamycin 150 mg Capsule PO ×2 (16:06→20:46)
[2021-10-03] MEDS: gabapentin 300 mg Capsule PO ×2 (16:06→20:46)
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
[2021-10-03] MEDS: famotidine 20 mg Tablet PO (18:37)
[2021-10-03 19:57] VITALS: BP 110/76; PULSE 81; RESP 18; TEMP 36.7; O2SAT 98
[2021-10-03] MEDS: acetaminophen 325 mg Tablet 650 MG PO (21:01)
--- NOTE | 2021-10-04 00:08 | NUR.SHIFT ---
2000- PT RESTING IN BED WITH EYES CLOSED WHEN THIS NURSE ENTERED ROOM. PT CALM AND COOPERATIVE. AWOKE FOR ASSESSMENT. PT MAKING NO SOUNDS OR MOVEMENTS WHEN SLEEPING, BUT REPORTS SEVERE BACK PAIN AND REQUESTS TYLENOL. PT MADE NO SOUNDS PRIOR TO THIS NURSE LISTENING TO LUNGS, BUT WHILE LISTENING, PT STATES, I'M HURTING AND BEGINS MOANING WITH EXPIRATION AND HAD TO BE REDIRECTED TO TRY NOT TO DO THAT WHILE LISTENING TO LUNGS. PT DISCONTINUED THE SOUNDS WHEN ASKED. PT DENIES SI/HI/AVH AT THIS TIME REPORTS 5/10 DEPRESSION AND ANXIETY. PT ISOLATING TO ROOM. 2199- PT RESTING IN BED WITH EYES CLOSED.
[2021-10-04] MEDS: acetaminophen 325 mg Tablet 650 MG PO ×3 (04:31→23:38)
--- NOTE | 2021-10-04 04:32 | PC.NURSE ---
Patient c/o pain rated a 6.Medicated with Tylenol 650 mg po for pain.
[2021-10-04] MEDS: nicotine 2 mg Gum BUCCAL (05:29)
[2021-10-04 06:00] VITALS: BP 112/79; PULSE 80; RESP 17; TEMP 36.7; O2SAT 97
[2021-10-04 09:06] VITALS: PULSE 77; RESP 16; O2SAT 99
[2021-10-04] MEDS: levothyroxine 112 mcg Tablet PO (09:09)
[2021-10-04] MEDS: meloxicam 7.5 mg tablet 15 MG PO (09:09)
[2021-10-04] MEDS: clindamycin 150 mg Capsule PO ×3 (09:09→20:33)
[2021-10-04] MEDS: polyethylene glycol 3350 Pkt 17 gm PO (09:09)
[2021-10-04] MEDS: gabapentin 300 mg Capsule PO ×3 (09:10→20:33)
[2021-10-04] MEDS: famotidine 20 mg Tablet PO ×2 (09:10→17:03)
[2021-10-04] MEDS: atorvastatin 40 mg Tablet 20 MG PO (09:10)
[2021-10-04] MEDS: cyclobenzaprine 10 mg Tablet PO (09:10)
[2021-10-04] MEDS: nicotine 21 mg Patch 1 PATCH TRANSDERMA (09:28)
[2021-10-04 14:00] VITALS: BP 126/83; PULSE 83; RESP 18; TEMP 36.5; O2SAT 96
[2021-10-04 20:03] VITALS: BP 132/89; PULSE 80; RESP 17; O2SAT 96
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
[2021-10-05 06:00] VITALS: RESP 16
[2021-10-05] MEDS: acetaminophen 325 mg Tablet 650 MG PO ×2 (07:06→17:35)
[2021-10-05] MEDS: famotidine 20 mg Tablet PO ×2 (08:01→21:02)
[2021-10-05] MEDS: meloxicam 7.5 mg tablet 15 MG PO (08:01)
[2021-10-05] MEDS: levothyroxine 112 mcg Tablet PO (08:01)
[2021-10-05] MEDS: atorvastatin 40 mg Tablet 20 MG PO (08:01)
[2021-10-05] MEDS: clindamycin 150 mg Capsule PO ×3 (08:01→21:02)
[2021-10-05] MEDS: gabapentin 300 mg Capsule PO ×3 (08:02→21:02)
--- NOTE | 2021-10-05 08:02 | PC.NURSE ---
refused scheduled Miralax
[2021-10-05 09:18] VITALS: PULSE 108; RESP 17; O2SAT 96
[2021-10-05] MEDS: nicotine 21 mg Patch 1 PATCH TRANSDERMA (10:35)
--- NOTE | 2021-10-05 13:24 | P.NPUPN_ITS ---
Subjective NPU Subjective: Patient is a 55 year old female admitted with homelessness, depressed mood, suicidal ideation and increased sadness. She minimized suicidal thoughts, continued to report depressed mood, decreased energy and motivation. She did not endorse any clear history of manic symptoms once again today and reports being uncertain why she was on latuda. She reports continued feelings of hopelessness. Mental Status Exam MSE Comments: This is a thin white female in hospital scrubs with adequate grooming and eye contact and hard of hearing requiring aid of hearing device. No abnormal movements. Cooperative with exam in mild distress. Speech was normal rate and volume. Mood described as depressed, affect is congruent and restricted. Thought process: circumstantial not organized. Thought content: patient denies any suicidal or homicidal ideation, no delusions noted and did not appear to be attending to internal stimuli. Attention was variable and appeared distracted through the interview, concentration was somewhat intact, and memory appeared unreliable. She is alert and oriented three times. Insight and judgment are limited. Impulse control is limited. Vitals/I&O/Wt Last Vital Signs Temp 97.8 F 10/05/21 20:03 Pulse 80 10/05/21 20:03 Resp 15 10/05/21 20:03 BP 141/92 10/05/21 20:03 Pulse Ox 99 10/05/21 20:03 Data NPU : 10/02/21 20:12 10/02/21 20:12 A&P Assessment and plan (1) Depression with suicidal ideation: Status: Acute (2) Suicidal ideation: Status: Acute (3) Lumbar spondylosis: Status: Acute (4) Lumbar disc disease: Status: Acute (5) History of lumbar surgery: Status: Chronic Plan This is a 55 year old white female with a history of chronic pain and a long history of major depressive disorder, who presents currently endorsing a depressed mood and significant pain issues.I will continue to investigate Bipolar 2 diagnosis. 1. We will attempt to gather collateral information including outpatient records. 2. Continue current medications and will consider changes to her antidepressant. 3. Encourage individual, group and milieu therapy 4. Continue q-15 minute check for safety 5. Recommend sober living treatment at the highest level of care to which the patient is willing to commit. 6. Start Prozac 20mg in am to target depression. Involuntary Hold Information 96 Hour Hold: 96 Hour Involuntary Admission: No Attestations NPU Medical Necessity Statement*: Inpatient hospitalization is medically necessary and the clinically appropriate interventions with expected length of stay 3-6 days.? Coding Level of Care Code Established Pt Acute Cement Tile Maker for Chg Fwd Patient Type Established History Problem Focused Exam Problem Focused Medical Decision Making Straight Forward Diagnoses Depression with suicidal ideation F32.A; R45.851 Suicidal ideation R45.851 Lumbar spondylosis M47.816 Lumbar disc disease M51.9 History of lumbar surgery Z98.890
[2021-10-05 14:00] VITALS: BP 106/72; PULSE 64; RESP 18; TEMP 36.6; O2SAT 98
[2021-10-05] MEDS: fluoxetine 20 mg Capsule PO (14:57)
[2021-10-05 20:03] VITALS: BP 141/92; PULSE 80; RESP 15; TEMP 36.6; O2SAT 99
[2021-10-05] MEDS: trazodone 50 mg Tablet PO (21:02)
[2021-10-05] MEDS: hyDROXYzine 25 mg Capsule 50 MG PO (21:02)
[2021-10-06 06:00] VITALS: BP 125/86; PULSE 86; RESP 16; TEMP 36.6; O2SAT 98
[2021-10-06] MEDS: acetaminophen 325 mg Tablet 650 MG PO ×3 (06:22→20:46)
--- NOTE | 2021-10-06 08:46 | PC.NURSE ---
refused scheduled Miralax
[2021-10-06] MEDS: atorvastatin 40 mg Tablet 20 MG PO (08:49)
[2021-10-06] MEDS: famotidine 20 mg Tablet PO ×2 (08:49→20:23)
[2021-10-06] MEDS: gabapentin 300 mg Capsule PO ×3 (08:50→20:23)
[2021-10-06] MEDS: fluoxetine 20 mg Capsule PO (08:50)
[2021-10-06] MEDS: levothyroxine 112 mcg Tablet PO (08:50)
[2021-10-06] MEDS: meloxicam 7.5 mg tablet 15 MG PO (08:50)
[2021-10-06] MEDS: clindamycin 150 mg Capsule PO ×3 (08:50→20:23)
[2021-10-06] MEDS: cyclobenzaprine 10 mg Tablet PO ×2 (09:43→20:45)
--- NOTE | 2021-10-06 09:43 | PC.NURSE ---
PRN FLEXERIL 10 MG GIVEN PO PER PT C/O MUSCLE SPASMS
--- NOTE | 2021-10-06 11:17 | P.NPUPN_ITS ---
Subjective NPU Subjective: Patient is a 55 year old female admitted with homelessness, depressed mood, suicidal ideation and increased sadness. She minimized suicidal thoughts, continued to report depressed mood here, low energy and difficulty with concentration. She reports no side effects from her medication. She re ports continued presence of panic attacks outside of the home and reports that these occur with triggers. She reports no improvement with panic attacks with her previous buspar. NO reports of manic symptoms here. Mental Status Exam MSE Comments: This is a thin white female in hospital scrubs with adequate grooming and eye contact and hard of hearing requiring aid of hearing device.? No abnormal movements. Cooperative with exam in mild distress. Speech was normal rate and volume. Mood described as depressed, affect is congruent and restricted. Thought process: circumstantial not? organized. Thought content: patient denies any suicidal or homicidal ideation, no delusions noted and did not appear to be attending to internal stimuli. Attention was variable and appeared distracted through the interview, concentration was poor and memory appeared unreliable. She is alert and oriented three times. Insight and judgment are limited. Impulse control is limited. Vitals/I&O/Wt Last Vital Signs Temp 98.4 F 10/06/21 14:00 Pulse 79 10/06/21 14:00 Resp 20 H 10/06/21 14:00 BP 145/83 10/06/21 14:00 Pulse Ox 96 10/06/21 14:00 Data NPU : 10/02/21 20:12 10/02/21 20:12 A&P Assessment and plan (1) Suicidal ideation: Status: Acute (2) Major depressive disorder: Status: Acute (3) Panic attacks: Status: Acute Plan TO-15 minute checks Continue individual/group/milieu therapy Continue Prozac 20mg in am with increase to 30mg tommorow Involuntary Hold Information 96 Hour Hold: 96 Hour Involuntary Admission: No Attestations NPU 2 Medical Necessity Statement*: Inpatient hospitalization is medically necessary and the clinically appropriate interventions with expected length of stay 2-4 da ys.? Coding Level of Care Code Established Pt Acute Clinical Operations Specialist for Remington Parada Patient Type Established History Problem Focused Exam Problem Focused Medical Decision Making Straight Forward Diagnoses Suicidal ideation R45.851 Major depressive disorder F32.9 Panic attacks F41.0
[2021-10-06] MEDS: nicotine 21 mg Patch 1 PATCH TRANSDERMA (11:59)
[2021-10-06 14:00] VITALS: BP 145/83; PULSE 79; RESP 20; TEMP 36.9; O2SAT 96
[2021-10-06] MEDS: polyethylene glycol 3350 Pkt 17 gm PO (17:07)
[2021-10-06] MEDS: blistex lip oint 7 gm Tube 1 APPLIC TOPICAL (21:25)
[2021-10-06 22:00] VITALS: BP 121/76; PULSE 80; RESP 16; TEMP 36.3; O2SAT 98
[2021-10-07 06:00] VITALS: BP 132/86; PULSE 86; RESP 18; TEMP 36.5; O2SAT 97
[2021-10-07] MEDS: cyclobenzaprine 10 mg Tablet PO ×3 (06:45→20:12)
[2021-10-07] MEDS: acetaminophen 325 mg Tablet 650 MG PO ×3 (06:46→20:11)
[2021-10-07] MEDS: atorvastatin 40 mg Tablet 20 MG PO (08:31)
[2021-10-07] MEDS: fluoxetine 20 mg Capsule PO (08:31)
[2021-10-07] MEDS: meloxicam 7.5 mg tablet 15 MG PO (08:31)
[2021-10-07] MEDS: levothyroxine 112 mcg Tablet PO (08:31)
[2021-10-07] MEDS: clindamycin 150 mg Capsule PO ×3 (08:31→20:12)
[2021-10-07] MEDS: famotidine 20 mg Tablet PO ×2 (08:31→20:12)
[2021-10-07] MEDS: gabapentin 300 mg Capsule PO ×3 (08:32→20:12)
[2021-10-07] MEDS: polyethylene glycol 3350 Pkt 17 gm PO (08:32)
[2021-10-07] MEDS: nicotine 21 mg Patch 1 PATCH TRANSDERMA (12:55)
--- NOTE | 2021-10-07 13:20 | W.PM.NPUPNS ---
Subjective NPU Subjective: Patient is a 55 year old female admitted with homelessness, depressed mood, suicidal ideation and increased sadness.She reports feeling a little better but reports still having crying spells; she minimizes suicidal ideation, no plan reported, she reports no side effects from prozac and reports continued pain issues, She reports panic attacks with triggers occur a few times a week. Staff reports that the patient has been redirectable. She reports low energy and low motivation. Mental Status Exam MSE Comments: This is a thin white female in hospital scrubs with a somewhat disheveled appearance. She had intermittent eye contact and hard of hearing requiring aid of hearing device.? No abnormal involuntary motor movements. Cooperative with exam in mild distress. Speech was normal rate and volume. Mood described as a little better , affect is incongruent and still flat. Thought process: linear and logical. Thought content: patient denies any suicidal or homicidal ideation, no delusions noted and did not appear to be attending to internal stimuli. Attention: still distracted. Concentration was poor? and memory appeared unreliable. She is alert and oriented times 3. Insight and judgment remained guarded. Impulse control is fair. Vitals/I&O/Wt Last Vital Signs Temp 98.0 F 10/07/21 20:43 Pulse 78 10/07/21 20:43 Resp 19 H 10/07/21 20:43 BP 120/81 10/07/21 20:43 Pulse Ox 96 10/07/21 20:43 Weight last 48 hrs Weight 67.132 kg Data NPU : 10/02/21 20:12 10/02/21 20:12 A&P Assessment and plan (1) Major depressive disorder: Status: Acute (2) Panic attacks: Status: Acute (3) Depression with suicidal ideation: Status: Acute (4) Lumbar spondylosis: Status: Acute (5) Lumbar disc disease: Status: Acute Plan Continue Prozac 30mg in am TO-15 minute med checks increase gabapentin 400mg tid Disposition planning initiated. Involuntary Hold Information 96 Hour Hold: 96 Hour Involuntary Admission: No Attestations NPU Medical Necessity Statement*: Inpatient hospitalization is medically necessary and the clinically appropriate interventions with expected length of stay 2-4 days.? Coding Level of Care Code Established Pt Acute Paper Wrapping Machine Operator for Chg Fwd Patient Type Established History Problem Focused Exam Problem Focused Medical Decision Making Straight Forward Diagnoses Panic attacks F41.0 Major depressive disorder F32.9 Depression with suicidal ideation F32.A; R45.851 Lumbar spondylosis M47.816 Lumbar disc disease M51.9
[2021-10-07 14:00] VITALS: BP 127/73; PULSE 93; RESP 16; TEMP 36.7; O2SAT 97
[2021-10-07 20:43] VITALS: BP 120/81; PULSE 78; RESP 19; TEMP 36.7; O2SAT 96
[2021-10-08] MEDS: cyclobenzaprine 10 mg Tablet PO ×2 (04:17→20:04)
[2021-10-08] MEDS: acetaminophen 325 mg Tablet 650 MG PO ×3 (04:17→20:04)
[2021-10-08 06:00] VITALS: BP 112/66; PULSE 88; RESP 17; TEMP 36.6; O2SAT 95
[2021-10-08] MEDS: polyethylene glycol 3350 Pkt 17 gm PO (08:58)
[2021-10-08] MEDS: meloxicam 7.5 mg tablet 15 MG PO (08:58)
[2021-10-08] MEDS: fluoxetine 10 mg Capsule 30 MG PO (08:58)
[2021-10-08] MEDS: gabapentin 400 mg Capsule PO ×3 (08:58→20:04)
[2021-10-08] MEDS: levothyroxine 112 mcg Tablet PO (08:58)
[2021-10-08] MEDS: famotidine 20 mg Tablet PO ×2 (08:58→20:04)
[2021-10-08] MEDS: atorvastatin 40 mg Tablet 20 MG PO (08:58)
[2021-10-08] MEDS: clindamycin 150 mg Capsule PO ×3 (08:58→20:04)
--- NOTE | 2021-10-08 09:08 | PC.NURSE ---
PT CONTINUES TO C/O OF PAIN IN LOWER BACK 10/24. PT RECEIVED TYLENOL AT 0420. EDUCATED ON STRETCHING BACK/LEGS. PT REQUESTING A LIDOCAINE PATCH. THIS RN WILL NOTIFY OF INCREASED PAIN. ALL QUESTIONS ANSWERED AND SUPPORT VOICED.
[2021-10-08] MEDS: nicotine 21 mg Patch 1 PATCH TRANSDERMA (11:31)
--- NOTE | 2021-10-08 12:02 | PC.NURSE ---
NEW ORDER THIS RN NOTIFIED DR. BOUCHER OF PTS CONTINUED BACK PAIN OF 10/24. NEW ORDERS RECEIVED TO START LIDOCAINE 5% PATCH TOPICAL ON IN AM AND OFF IN PM. ORDERS PLACED IN VISION, PT EDUCATED ON NEW ORDERS. ALL QUESTIONS ANSWERED AND SUPPORT VOICED.
[2021-10-08 14:00] VITALS: BP 111/77; PULSE 90; RESP 20; TEMP 36.7; O2SAT 97
[2021-10-08] MEDS: lidocaine 5% Patch 1 PATCH TOPICAL (14:58)
[2021-10-08] MEDS: hyDROXYzine 25 mg Capsule 50 MG PO (15:49)
--- NOTE | 2021-10-08 15:49 | PC.NURSE ---
PRN VISTARIL 50 MG GIVEN PO PER PT C/O STATED ANXIETY. WILL CONT TO MONITOR
--- NOTE | 2021-10-08 18:08 | W.PM.NPUPNS ---
Subjective NPU Subjective: Patient presents today reporting that she is not feeling much better but that she is tolerating the Prozac and the increase in the Prozac. We discussed different medications that she has been on as she reports her energy is not down. She reports he is more or less homeless and that she was in a precarious situation. Recently her had significant health problems. She endorsed a plan to go to a homeless [facility] at discharge. She downplayed conversation about her admission and the impact it could be having in her current situation. She is very hard of hearing but does have her hearing aid in. Mental Status Exam MSE Comments: This is a thin white female in hospital scrubs with a somewhat disheveled appearance. She had intermittent?eye contac. She is hard of hearing requiring aid of hearing device in the right ear. No abnormal movements except for mild psychomotor ideation. No abnormal involuntary motor? movements. Cooperative with exam in mild distress. Speech was slightly decreased rate and volume. Mood described as okay, affect is incongruent and still flat.? Thought process: linear and logical.?Thought content: patient denies any suicidal or homicidal ideation, no delusions reported though patient did appear guarded and did not appear to be attending to internal stimuli. Attention: still distracted.??Concentration was poor?and memory appeared unreliable. She is alert and oriented times 3. ? Insight and judgment remained limited. ? Impulse control is limited. Vitals/I&O/Wt Last Vital Signs Temp 98.1 F 10/08/21 14:00 Pulse 90 10/08/21 14:00 Resp 20 H 10/08/21 14:00 BP 111/77 10/08/21 14:00 Pulse Ox 97 10/08/21 14:00 Weight last 48 hrs Weight 67.132 kg Data NPU : 10/02/21 20:12 10/02/21 20:12 A&P Assessment and plan (1) Panic attacks: Status: Acute (2) Major depressive disorder: Status: Acute (3) Depression with suicidal ideation: Status: Acute (4) Suicidal ideation: Status: Acute Plan This is a 55 year old white female with a history of chronic pain and a long history of major depressive disorder, who presents currently endorsing a depressed mood and significant pain issues.I will continue to investigate Bipolar 2 diagnosis. 1. We will attempt to gather collateral information including outpatient records. 2. Continue current medications. Continue Prozac 30 mg p.o. daily. 3. Encourage individual, group and milieu therapy 4. Continue q-15 minute check for safety 5. Recommend sober living treatment at the highest level of care to which the patient is willing to commit. Involuntary Hold Information 96 Hour Hold: 96 Hour Involuntary Admission: No Attestations NPU Medical Necessity Statement*: Inpatient hospitalization is medically necessary and the clinically appropriate intervention at this time. We will monitor medication to make changes as indicated. Likely length of stay 2-4 days. Coding Level of Care Code Acute S3B Multi Sensor Operator for g Fwd Diagnoses Panic attacks F41.0 Major depressive disorder F32.9 Depression with suicidal ideation F32.A; R45.851 Suicidal ideation R45.851
[2021-10-08 20:22] VITALS: BP 126/84; PULSE 81; RESP 16; TEMP 36.6; O2SAT 96
[2021-10-08] MEDS: trazodone 50 mg Tablet PO (20:23)
[2021-10-09 06:00] VITALS: BP 122/85; PULSE 91; RESP 16; TEMP 37.1; O2SAT 16
[2021-10-09] MEDS: acetaminophen 325 mg Tablet 650 MG PO ×2 (06:10→11:46)
[2021-10-09] MEDS: cyclobenzaprine 10 mg Tablet PO (06:14)
[2021-10-09] MEDS: polyethylene glycol 3350 Pkt 17 gm PO (07:46)
[2021-10-09] MEDS: lidocaine 5% Patch 1 PATCH TOPICAL (07:46)
[2021-10-09] MEDS: clindamycin 150 mg Capsule PO (07:47)
[2021-10-09] MEDS: meloxicam 7.5 mg tablet 15 MG PO (07:47)
[2021-10-09] MEDS: levothyroxine 112 mcg Tablet PO (07:47)
[2021-10-09] MEDS: atorvastatin 40 mg Tablet 20 MG PO (07:48)
[2021-10-09] MEDS: fluoxetine 10 mg Capsule 30 MG PO (07:49)
[2021-10-09] MEDS: famotidine 20 mg Tablet PO (07:50)
[2021-10-09] MEDS: gabapentin 400 mg Capsule PO ×2 (07:50→14:37)
[2021-10-09] MEDS: nicotine 21 mg Patch 1 PATCH TRANSDERMA (09:05)
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
[2021-10-09 13:18] VITALS: BP 122/85; PULSE 91; RESP 16; TEMP 37.1; O2SAT 16
== END 2021-10-09 15:43 | disposition home or self-care (01) | DRG 881 ==
LOC: ER 20:53 → NP 10-03 11:19
PROVIDERS: Admitting Provider Psychiatry & Neurology Psychiatry; Emergency Provider Emergency Medicine; PCP Family Medicine; Visit Provider Psychiatry & Neurology Psychiatry
DX: F32.9 Major depressive disorder, single episode, unspecified (principal); R45.851 Suicidal ideations; E03.9 Hypothyroidism, unspecified; Z98.1 Arthrodesis status; F17.210 Nicotine dependence, cigarettes, uncomplicated; M47.816 Spondylosis without myelopathy or radiculopathy, lumbar region; Z91.14 Patient's other noncompliance with medication regimen; Z59.01 Sheltered homelessness; J44.9 Chronic obstructive pulmonary disease, unspecified; M19.90 Unspecified osteoarthritis, unspecified site; G89.29 Other chronic pain; F41.0 Panic disorder [episodic paroxysmal anxiety]; Z79.51 Long term (current) use of inhaled steroids
CPT/HCPCS: 71045; 80053; 80074; 80306; 80307; 83690; 84439; 84443; 85025; 87426; 87635; 87806; 93005; 97150; 97165; 99285

== ENCOUNTER 2021-11-30 06:53 | Emergency (ER) | payer MEDICAID, SELFPAY ==
[2021-11-30 07:20] VITALS: BP 129/84; PULSE 80; RESP 16; TEMP 36.4; O2SAT 97; BMI 24.3
--- NOTE | 2021-11-30 07:36 | W.ED.BACK ---
Documented by User: Deborah Marlow PA-C 11/30/21 07:57 HPI - Back Pain/Injury General: Chief Complaint: Back Pain/Injury Stated Complaint: Back/ leg Pain Time Seen by Provider: 11/30/21 07:27 Source: patient Mode of arrival: ambulatory Limitations: no limitations History of Present Illness: 55-year-old female presents to the ER today for left-sided sciatic pain x4 days. Patient reports it started acting up earlier in the week and is continued to worsen. She reports difficulty finding a comfortable position. Patient reports a history of back issues. She denies any neurological symptoms including loss of bowel or bladder control. Patient reports the pain radiates from her left buttock into the tip of her left toes. Patient reports she takes meloxicam and Tylenol at home with minimal relief. Patient also has cyclobenzaprine which she takes on occasion. Denies any known injury or anything that would have caused this exacerbation of the pain. Review of Systems General: Reports: 10 or more systems reviewed and unremarkable except in HPI and below PFSH ED PFSH: Medical History Depression Hypothyroidism Lumbar disc disease Lumbar spondylosis Psychiatric care Surgical History H/O tubal ligation History of lumbar surgery 2008 Dr Geiger [id number] ALIFF Family History Grandmother Cancer Diabetes Grandfather Cancer Father Diabetes Mother Diabetes Social History Smoking and tobacco status: current every day smoker Alcohol intake: never Household members: spouse Marital status: Current occupational status: disabled History of recent travel: No Female Reproductive History: Spontaneous abortions: No Physical Exam Const: COMMON NORMALS: average body habitus, patient oriented x3, no limitations, healthy appearing, alert and well nourished; apparent distress (pt appears uncomfortable) Eye: COMMON NORMALS: conjunctivae normal CONJUNCTIVA: Yes conjunctivae normal Neck/C-Spine: COMMON NORMALS: full ROM Resp: COMMON NORMALS: normal respiratory effort EFFORT & INSPECTION: Yes able to speak in complete sentences Cardio: COMMON NORMALS: regular rate and regular rhythm RATE: regular rate RHYTHM: regular rhythm Back/Pelvis: OTHER: Patient has left SI joint tenderness and tenderness of the piriformis muscle of the left side. Patient has normal exam otherwise. Negative straight leg raise. Normal sensation and pulses. Extremity: COMMON NORMALS: normal to inspection and full ROM Neuro: COMMON NORMALS: patient oriented x3 SENSORIUM/ORIENTATION: Yes alert Psych: COMMON NORMALS: mental status grossly normal, Normal thought process present and cooperative THOUGHT PROCESS: Normal thought process present Skin: COMMON NORMALS: no rashes or lesions noted and no wounds GENERAL SKIN EXAM: no rashes or lesions noted Course ED course: 55-year-old female presents to the ER today for left-sided sciatic pain x4 days. Patient reports she has a history of back problems. She has been taking her meloxicam and cyclobenzaprine and also Tylenol at home with minimal improvement. Patient reports she is tried warm baths. Patient reports the pain has just continued to worsen. She denies any loss of bowel or bladder control. Denies any neurological symptoms otherwise. Patient denies any known injury that may have worsened this last week. Given there is no known injury, imaging is not warranted at this time. We will treat with medications. Vital Signs: Vital signs: Vital Signs Temperature 97.6 F 11/30/21 07:20 Pulse Rate 75 11/30/21 07:59 Respiratory Rate 16 11/30/21 07:20 Blood Pressure 129/84 11/30/21 07:20 Pulse Oximetry 98 11/30/21 07:59 Oxygen Delivery Me thod 11/30/21 07:20 MDM - Back Pain/Injury Medical Decision Making 55-year-old female presents to the ER today for left-sided sciatic pain x4 days. Patient reports she has a history of back problems. She has been taking her meloxicam and cyclobenzaprine and also Tylenol at home with minimal improvement. Patient reports she is tried warm baths. Patient reports the pain has just continued to worsen. She denies any loss of bowel or bladder control. Denies any neurological symptoms otherwise. Patient denies any known injury that may have worsened this last week. Given there is no known injury, imaging is not warranted at this time. We will treat with medications. Patient was given Medrol Dosepak and Robaxin. She can take the Robaxin when she is not taking the cyclobenzaprine as it will likely not make her quite as sleepy. Patient should continue her meloxicam at home. Patient was given a work note so that she does not have to do chores for a few days to give it a rest. Recommend patient follow-up with PCP in 7 to 10 days if no improvement. Return to the ER with any new or worsening symptoms. Patient verbalized understanding and was in agreement with the treatment plan. Critical Care Time Critical Care Time: Critical Care Time: No Discharge Plan Discharge Patient Disposition: Home Clinical Impression: Sciatica Qualifiers: Laterality: left Qualified Code(s): M54.32 - Sciatica, left side Condition: Stable Prescriptions: New Medrol (Javy) 4 mg tablets,dose pack See Rx Instructions PO .COMPLEX Qty: 21 0RF Rx Instructions: orally per package directions No Action famotidine 20 mg tablet 20 mg PO BID Qty: 60 3RF methocarbamol 750 mg tablet 750 mg PO Q8H Qty: 60 1RF fluoxetine 10 mg capsule 30 mg PO DAILY 30 Days Qty: 90 5RF albuterol sulfate [ProAir HFA] 90 mcg/actuation HFA aerosol inhaler 2 puff INHALATION Q6H PRN (Reason: Shortness Of Breath) Qty: 8.5 1RF atorvastatin 20 mg tablet 20 mg PO DAILY Qty: 30 2RF meloxicam 15 mg tablet 15 mg PO DAILY Qty: 30 3RF levothyroxine 112 mcg tablet 112 mcg PO DAILY Qty: 30 2RF Gavilax 17 gram/dose powder 17 g PO DAILY gabapentin 400 mg Capsule 400 mg PO TID 30 Days Qty: 90 1RF hydroxyzine pamoate 25 mg Capsule 50 mg PO Q6H PRN (Reason: Anxiety) 30 Days Qty: 120 1RF Discharge Orders: Discharge ED (Routine); Ordered 11/30/21 Ordered By: Deborah Marlow Referrals: Rakan Alexandra DO [Primary Care Provider] - Discharge Diet: Usual diet Discharge Activity: Increase activity as tolerated Patient Instructions: Sciatica (ED), Opioid Safety, Pain Management Activity Restrictions/Additional Instructions: Take medications as prescribed. Do not take the Robaxin and cyclobenzaprine at the same time, but okay to alternate due to drowsy side effects of cyclobenzaprine. Warm moist heat recommended. Stretching recommended. Follow-up with PCP in 5 to 7 days if no improvement. Return to the ER with any new or worsening symptoms. Stand Alone Forms: Work/School Release Coding Level of Care Code ED Personal Banking Representative for [employer] Exam Comprehensive Documented by User: Kyle Mcfarland DO 12/04/21 08:26 HPI - Back Pain/Injury General: Chief Complaint: Back Pain/Injury Stated Complaint: Back/ leg Pain Time Seen by Provider: 11/30/21 07:27 PFSH ED PFSH: Medical History Depression Hypothyroidism Lumbar disc disease Lumbar spondylosis Psychiatric care Surgical History H/O tubal ligation History of lumbar surgery 2008 Dr Geiger L5-S1 ALIFF Family History Grandmother Cancer Diabetes Grandfather Cancer Father Diabetes Mother Diabetes Social History Smoking and tobacco status: current every day smoker Alcohol intake: never Household members: spouse Marital status: Current occupational status: disabled History of recent travel: No Course Vital Signs: Vital signs: Vital Signs Temperature 97.6 F 11/30/21 07:20 Pulse Rate 75 11/30/21 07:59 Respiratory Rate 16 11/30/21 07:20 Blood Pressure 129/84 11/30/21 07:20 Pulse Oximetry 98 11/30/21 07:59 Oxygen Delivery Me thod 11/30/21 07:20 MDM - Back Pain/Injury Medical Decision Making 55-year-old female presents to the ER today for left-sided sciatic pain x4 days. Patient reports she has a history of back problems. She has been taking her meloxicam and cyclobenzaprine and also Tylenol at home with minimal improvement. Patient reports she is tried warm baths. Patient reports the pain has just continued to worsen. She denies any loss of bowel or bladder control. Denies any neurological symptoms otherwise. Patient denies any known injury that may have worsened this last week. Given there is no known injury, imaging is not warranted at this time. We will treat with medications. Patient was given Medrol Dosepak and Robaxin. She can take the Robaxin when she is not taking the cyclobenzaprine as it will likely not make her quite as sleepy. Patient should continue her meloxicam at home. Patient was given a work note so that she does not have to do chores for a few days to give it a rest. Recommend patient follow-up with PCP in 7 to 10 days if no improvement. Return to the ER with any new or worsening symptoms. Patient verbalized understanding and was in agreement with the treatment plan. Chart reviewed and patient discussed with midlevel. Agree with assessment and plan. Discharge Plan Discharge Patient Disposition: Home Clinical Impression: Sciatica Qualifiers: Laterality: left Qualified Code(s): M54.32 - Sciatica, left side Condition: Stable Prescriptions: New Medrol (Javy) 4 mg tablets,dose pack See Rx Instructions PO .COMPLEX Qty: 21 0RF Rx Instructions: orally per package directions No Action famotidine 20 mg tablet 20 mg PO BID Qty: 60 3RF methocarbamol 750 mg tablet 750 mg PO Q8H Qty: 60 1RF fluoxetine 10 mg capsule 30 mg PO DAILY 30 Days Qty: 90 5RF albuterol sulfate [ProAir HFA] 90 mcg/actuation HFA aerosol inhaler 2 puff INHALATION Q6H PRN (Reason: Shortness Of Breath) Qty: 8.5 1RF atorvastatin 20 mg tablet 20 mg PO DAILY Qty: 30 2RF meloxicam 15 mg tablet 15 mg PO DAILY Qty: 30 3RF levothyroxine 112 mcg tablet 112 mcg PO DAILY Qty: 30 2RF Gavilax 17 gram/dose powder 17 g PO DAILY gabapentin 400 mg Capsule 400 mg PO TID 30 Days Qty: 90 1RF hydroxyzine pamoate 25 mg Capsule 50 mg PO Q6H PRN (Reason: Anxiety) 30 Days Qty: 120 1RF Discharge Orders: Discharge ED (Routine); Ordered 11/30/21 Ordered By: Deborah Marlow Referrals: Rakan Alexandra DO [Primary Care Provider] - Discharge Diet: Usual diet Discharge Activity: Increase activity as tolerated Patient Instructions: Sciatica (ED), Opioid Safety, Pain Management Activity Restrictions/Additional Instructions: Take medications as prescribed. Do not take the Robaxin and cyclobenzaprine at the same time, but okay to alternate due to drowsy side effects of cyclobenzaprine. Warm moist heat recommended. Stretching recommended. Follow-up with PCP in 5 to 7 days if no improvement. Return to the ER with any new or worsening symptoms. 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
[2021-11-30 07:59] VITALS: PULSE 75; O2SAT 98
== END 2021-11-30 07:59 | disposition home or self-care (01) ==
PROVIDERS: Emergency Provider Physician Assistant; PCP Family Medicine
DX: M54.32 Sciatica, left side (principal)
CPT/HCPCS: 99283

== ENCOUNTER → 2022-01-21 12:23 | Outpatient (BNVA) | payer MEDICAID, SELFPAY | PROVIDERS: PCP Family Medicine; Visit Provider Family Medicine | DX: R10.9 Unspecified abdominal pain (principal); R30.0 Dysuria; M51.37 Other intervertebral disc degeneration, lumbosacral region | CPT/HCPCS: 80053; 80307; 81000; 82043 ==

== ENCOUNTER 2022-02-27 14:44 | Emergency (ER) | payer MEDICAID, SELFPAY ==
[2022-02-27 15:08] VITALS: BP 137/88; PULSE 96; RESP 13; TEMP 36.4; O2SAT 99; BMI 24.5
--- NOTE | 2022-02-27 15:42 | W.ED.BACK ---
HPI - Back Pain/Injury General: Chief Complaint: Back Pain/Injury Stated Complaint: Back pain Time Seen by Provider: 02/27/22 15:23 History of Present Illness: Patient is a 56-year-old female comes to the ED with chronic back pain. Patient is currently trying to get set up with pain management clinic for lower back pain. Back pain has been going on now for over 6 months. She endorses having 10 out of 10 pain in her lower back. Pain radiates down her legs bilaterally. Patient says she has been on a steroid in the past but its been over 3 months. Rest improves symptoms and any movement causes worsening back pain. Denies any recent injury or trauma to cause worsening pain. Denies any pelvic anesthesia, bladder or bowel incontinence or any weakness to lower extremities. Associated symptoms: Deny abdominal pain, chills, dysuria, fatigue, fever(s), hematuria, nausea or vomiting Review of Systems Const: Denies: fever(s), chills or fatigue Eyes: Denies: change in vision or eye discomfort ENMT: Denies: throat pain, odynophagia, nasal discharge or nasal congestion Card: Denies: chest pain, palpitations, edema, swelling of feet/ankles, dyspnea on exertion or orthopnea Resp: Denies: dyspnea, productive cough or non-productive cough GI: Denies: abdominal pain, nausea, vomiting, diarrhea, constipation or hematochezia : Denies: flank pain, dysuria or hematuria Musc: Reports: back pain; Denies: neck pain or extremity swelling Skin/Breast: Denies: rash or new lesions Neuro: Denies: headache(s), numbness in extremities or weakness in extremities PFS ED PFSH: Medical History Depression Hypothyroidism Lumbar disc disease Lumbar spondylosis Psychiatric care Surgical History H/O tubal ligation History of lumbar surgery Family History Grandmother Cancer Diabetes Grandfather Cancer Father Diabetes Mother Diabetes Social History Smoking and tobacco status: never smoked Second hand smoke exposure: Yes Alcohol intake: current Alcohol intake frequency: holidays/special occasions only Alcohol type: beer Desire information about alcohol rehabilitation?: No Counseling given: No Household members: spouse Marital status: Current occupational status: disabled History of recent travel: No Female Reproductive History: Spontaneous abortions: No Physical Exam Const: COMMON NORMALS: no acute distress, patient oriented x3 and alert GENERAL APPEARANCE: cooperative HENMT: COMMON NORMALS: normocephalic HEAD & SCALP: normocephalic MOUTH: Normal oral and palatal mucosa present THROAT: posterior oropharynx normal and uvula midline Neck/C-Spine: COMMON NORMALS: supple GENERAL: Yes normal visual inspection Resp: COMMON NORMALS: normal respiratory effort, No retractions, No use of accessory muscles and clear to auscultation bilaterally AUSCULTATION: clear to auscultation bilaterally Cardio: COMMON NORMALS: regular rate, regular rhythm, S1 normal heart sound present, S2 normal heart sound present, No gallops present (Cardio), No clicks present (Cardio), No murmurs present (Cardio) and Peripheral pulses 2+ throughout RATE: regular rate RHYTHM: regular rhythm HEART SOUNDS: S1 normal heart sound present and S2 normal heart sound present PERIPHERAL PULSES: Peripheral pulses 2+ throughout GI: COMMON NORMALS: Normal to inspection, nondistended, normoactive bowel sounds present, Soft to palpation, non-tender and no masses PALPATION: Yes Soft to palpation : COMMON NORMALS: Yes no CVA tenderness BLADDER/KIDNEY EXAM: Yes no CVA tenderness Back/Pelvis: COMMON NORMALS: no CVA tenderness Extremity: COMMON NORMALS: normal to inspection Neuro: COMMON NORMALS: patient oriented x3 SENSORIUM/ORIENTATION: Yes alert GAIT: Yes Normal gait present Skin: GENERAL SKIN EXAM: dry skin Course Vital Signs: Vital signs: Vital Signs Temperature 97.6 F 02/27/22 15:08 Pulse Rate 96 02/27/22 15:08 Respiratory Rate 13 02/27/22 15:08 Blood Pressure 137/88 02/27/22 15:08 Pulse Oximetry 99 02/27/22 15:08 Oxygen Delivery Me thod 02/27/22 15:08 MDM - Back Pain/Injury Medical Decision Making Patient is a 56-year-old female comes to the ED with chronic lower back pain. She is currently getting set up with pain management to help with her chronic low back pain. She endorses having pain radiating down her legs bilaterally. Denies any cauda equina symptoms. Vitals are stable. Patient appears nontoxic in no acute distress or pain. She was given a dose of Toradol, Norflex and Solu-Medrol here in the ED. She was diagnosed with lumbar radiculopathy and was discharged home with a prescription for muscle relaxer and steroid. She was told to continue taking her previously prescribed meloxicam to help with pain. Follow-up with PCP in the next 5 to 7 days for reevaluation. Return to ED precautions given. Patient understood and agreed with plan. Discharge Plan Discharge Patient Disposition: Home Clinical Impression: Lumbar radiculopathy Condition: Stable Prescriptions: New cyclobenzaprine 10 mg tablet 10 mg PO BID PRN (Reason: muscle spasm) Qty: 20 0RF Medrol (Javy) 4 mg tablets,dose pack See Rx Instructions .ROUTE .COMPLEX Qty: 21 0RF Rx Instructions: orally per package directions No Action famotidine 20 mg tablet 20 mg PO BID Qty: 60 3RF docusate sodium 100 mg capsule 100 mg PO BID Qty: 60 2RF buspirone 15 mg tablet 15 mg PO BID Qty: 60 5RF nicotine 21 mg/24 hr patch 24 hour 1 patch transdermal Q24H Qty: 28 2RF fluoxetine 40 mg capsule 40 mg PO DAILY Qty: 30 5RF Rx Instructions: Take with 20mg dose for total daily dose of 60mg. fluoxetine 20 mg capsule 20 mg PO DAILY Qty: 30 5RF Rx Instructions: Take with 40mg dose for total daily dose of 60mg. gabapentin 400 mg capsule 400 mg PO TID 30 Days Qty: 90 1RF meloxicam 15 mg tablet 15 mg PO DAILY Qty: 30 3RF albuterol sulfate [Ventolin HFA] 90 mcg/actuation HFA aerosol inhaler See Rx Instructions .ROUTE .COMPLEX Qty: 18 1RF Dose Instruction: INHALE TWO PUFFS BY MOUTH EVERY 6 HOURS as needed for SHORTNESS OF BREATH Rx Instructions: INHALE TWO PUFFS BY MOUTH EVERY 6 HOURS as needed for SHORTNESS OF BREATH atorvastatin 20 mg tablet See Rx Instructions .ROUTE .COMPLEX Qty: 30 1RF Dose Instruction: TAKE 1 TABLET BY MOUTH EVERY DAY Rx Instructions: TAKE 1 TABLET BY MOUTH EVERY DAY levothyroxine 112 mcg tablet See Rx Instructions .ROUTE .COMPLEX Qty: 30 1RF Dose Instruction: TAKE 1 TABLET BY MOUTH EVERY DAY Rx Instructions: TAKE 1 TABLET BY MOUTH EVERY DAY cyclobenzaprine 10 mg tablet 10 mg PO TID PRN (Reason: Muscle Spasm) Qty: 60 0RF Discharge Orders: Discharge ED (Routine); Ordered 02/27/22 Ordered By: Dalton Vernon Referrals: Rakan Alexandra DO [Primary Care Provider] - Discharge Diet: Regular Discharge Activity: Increase activity as tolerated Patient Instructions: Lumbar Radiculopathy (ED) Activity Restrictions/Additional Instructions: Follow-up with medical provider as directed in the next 7 to 10 days for reevaluation. Take medications as prescribed. Return to the ER or your medical provider if condition worsens. Please read and understand discharge instructions. Thank you for choosing [facility] for your healthcare needs today. Please realize this is an emergency room and that we are providing you with a medical screening exam and this may not be complete and all inclusive of all the testing and or work up that you may need to determine your ailment or severity of your illness. It is very important that you follow up as instructed or that you return to the Emergency Department should you have concerns or if your condition changes or worsens in any way. Coding Level of Care Code ED [employer] Cann[employer]er for [employer] F[employer] Exam Comprehensive
[2022-02-27] MEDS: ketorolac 60 mg/2 mL INJ IM (16:16)
[2022-02-27] MEDS: orphenadrine 30 mg/mL Inj 2 mL 60 MG IM (16:16)
== END 2022-02-27 16:20 | disposition home or self-care (01) ==
PROVIDERS: Emergency Provider Physician Assistant; PCP Family Medicine
DX: M54.16 Radiculopathy, lumbar region (principal); Z77.22 Contact with and (suspected) exposure to environmental tobacco smoke (acute) (chronic)
CPT/HCPCS: 96372; 99284; J1885; J2360; J2930

== ENCOUNTER 2022-03-26 14:32 | Outpatient (CLI) | payer MEDICAID, SELFPAY ==
--- NOTE | 2022-03-26 13:06 | MM_ITS ---
WS: [id number] BILATERAL 3D TOMOSYNTHESIS DIGITAL SCREENING MAMMOGRAPHY WITH CAD CLINICAL INFORMATION: Breast Cancer Screening HISTORY: Screening mammogram. No current complaints. COMPARISON: October 18, 2010 TECHNIQUE: Bilateral CC and MLO views. FINDINGS: The breasts are composed of heterogeneous fibroglandular density tissue, which can limit the detectio n of small underlying mass lesions. No suspicious mass, asymmetry, calcifications, or architectural d istortion. No evidence of malignancy. MM/[place] [id number] IMPRESSION: BI-RADS: 1-Negative FOLLOW UP: 1 Year Follow-up Recommend return to annual screening mammography.
== END 2022-03-26 14:33 | disposition home or self-care (01) ==
LOC: RAD 14:32
PROVIDERS: PCP Family Medicine; Visit Provider Family Medicine
DX: Z12.31 Encounter for screening mammogram for malignant neoplasm of breast (principal)
CPT/HCPCS: 77063; 77067

== ENCOUNTER → 2022-04-23 11:30 | Outpatient (BNVA) | payer MEDICAID, SELFPAY | PROVIDERS: PCP Family Medicine; Visit Provider Nurse Practitioner Women's Health | DX: Z12.4 Encounter for screening for malignant neoplasm of cervix (principal) | CPT/HCPCS: 87624 ==

== ENCOUNTER 2022-05-19 13:41 | Inpatient (IN) | payer MEDICAID, SELFPAY ==
--- NOTE | 2022-05-19 13:47 | W.ED.PSYCHS ---
HPI - Psych General: Chief Complaint: ER Hold Stated Complaint: psych eval/ SI Time Seen by Provider: 05/19/22 13:46 History of Present Illness: Ms. Patterson is a 56-year-old lady with history of major depression, PTSD, substance abuse, chronic pain presenting to the emergency department for suicidal ideation. She reports progressively worsening symptoms over a number of months. She has seen crisis stabilization a few times and saw them today and was referred to the emergency department for further management. She endorses no specific plan but in the past has tried to kill herself and is trying to decide on a way that would kill her instantly. Intensity symptoms is moderate to severe. Course is worsened. Complicated by social circumstances. No other specific changes in health, exacerbating, or alleviating factors identified. Onset (ago): month(s) Duration: getting worse Context: significant life stressor Associated psychiatric symptoms: depression, suicidal ideation and racing thoughts Review of Systems General: Reports: 10 or more systems reviewed and unremarkable except in HPI and below PFSH ED PFSH: Medical History Depression Fibromyalgia [place] (hard of hearing) Hypothyroidism Lumbar disc disease Lumbar post-laminectomy syndrome Lumbar spondylosis No pertinent past medical history Neghx: htn,dm,dvt/pe PCP: Dr. Alexandra Psych[facility] Surgical History H/O tubal ligation History of lumbar surgery History of surgery on arm left forearm and right shoulder Family History Grandmother No problems noted. Grandfather No problems noted. Father Diabetes Hyperchloremia Mother Diabetes Stroke Thyroid condition Hyperchloremia Hypertension Family/Other Breast cancer Paternal aunt Sister Thyroid condition Other Ovarian cancer Denies family history of Colon cancer Heart disease Uterine cancer Social History Smoking and tobacco status: current every day smoker cigarettes Packs smoked per day: 1 Years cigarettes smoked: 30 Second hand smoke exposure: Yes Alcohol intake: current Alcohol intake frequency: holidays/special occasions only Alcohol type: beer Desire information about alcohol rehabilitation?: No Counseling given: No Household members: spouse Marital status: Current occupational status: disabled Female Reproductive History: Spontaneous abortions: No Physical Exam Const: COMMON NORMALS: alert GENERAL APPEARANCE: cooperative and well developed HENMT: COMMON NORMALS: normocephalic and atraumatic HEAD & SCALP: normocephalic and atraumatic Eye: COMMON NORMALS: conjunctivae normal CONJUNCTIVA: Yes conjunctivae normal SCLERA: sclerae normal Neck/C-Spine: COMMON NORMALS: supple GENERAL: Yes trachea midline Resp: COMMON NORMALS: clear to auscultation bilaterally EFFORT & INSPECTION: Yes able to speak in complete sentences AUSCULTATION: clear to auscultation bilaterally Cardio: COMMON NORMALS: regular rate and regular rhythm RATE: regular rate RHYTHM: regular rhythm GI: COMMON NORMALS: Soft to palpation PALPATION: Yes Soft to palpation and No Tenderness to palpation present (GI) Extremity: GENERAL: Yes normal exam except as noted and No edema Neuro: COMMON NORMALS: moves all extremities SENSORIUM/ORIENTATION: Yes alert and No Orientation impaired Psych: COMMON NORMALS: mental status grossly normal and Normal thought process present THOUGHT PROCESS: Normal thought process present Course Vital Signs: Vital signs: Vital Signs Temperature 97.6 F 05/24/22 14:21 Pulse Rate 86 05/24/22 14:21 Respiratory Rate 15 05/24/22 14:21 Blood Pressure 126/95 05/24/22 14:21 Pulse Oximetry 96 05/24/22 14:21 Oxygen Delivery Me thod 05/24/22 06:00 [facility] - Psych Medical Decision Making 56-year-old lady with history of chronic pain and psychiatric disorder presenting to the emergency department for suicidal ideation. She has had increased social stressors and overall course of symptoms as worsened. She is calm and cooperative on exam. She is nontoxic Labs with no significant hematologic abnormality. Perhaps mild dehydration on metabolic panel, patient can adequately orally rehydrate. TSH low with normal free T4. Toxic ingestions are negative. UDS positive for benzodiazepines and THC. Given provided clinical history and physical exam no indication for imaging at this time. Patient reports worsening suicidal ideation and requires inpatient management. Based on ED evaluation at this point there is no obvious condition that would preclude the patient from inpatient management of psychiatric concerns/symptoms. The results of ED evaluation were discussed with the patient including plan for admission due to requirement for level of care not available if discharged to prevent significant worsening/deterioration. Patient agreeable with plan. Discussed with psychiatry service who was agreeable to admit patient. Medical Records I reviewed the patient's medical records. Lab Data I reviewed the patient's lab results. 05/19/22 15:03 05/19/22 15:03 Laboratory Results WBC 6.7 10^3/uL (4.0-10.0) 05/19/22 15:03 RBC 4.09 10^6/uL (4.1-5.3) L 05/19/22 15:03 Hgb 12.8 g/dL (11.5-15.3) 05/19/22 15:03 Hct 39.7 % (37.0-47.0) 05/19/22 15:03 MCV 97.1 fl (81-99) 05/19/22 15:03 MCH 31.3 pg (28.0-34.0) 05/19/22 15:03 MCHC 32.2 g/dL (30.0-36.0) 05/19/22 15:03 RDW 12.9 % (12.1-15.1) 05/19/22 15:03 Plt Count 321 10^3/cmm (130-400) 05/19/22 15:03 MPV 9.7 fL (7.4-10.4) 05/19/22 15:03 Neut % (Auto) 53.7 % 05/19/22 15:03 Lymph % (Auto) 35.4 % 05/19/22 15:03 Lee % (Auto) 6.1 % 05/19/22 15:03 Eos % (Auto) 3.4 % 05/19/22 15:03 Baso % (Auto) 1.0 % 05/19/22 15:03 Neut # (Auto) 3.60 10^3/uL (1.8-7.7) 05/19/22 15:03 Lymph # (Auto) 2.4 10^3/uL (0.8-4.8) 05/19/22 15:03 Lee # (Auto) 0.4 10^3/uL (0.2-0.9) 05/19/22 15:03 Eos # (Auto) 0.2 10^3/uL (0.0-0.8) 05/19/22 15:03 Baso # (Auto) 0.1 10^3/uL (0.0-0.1) 05/19/22 15:03 Nucleated RBC % (auto) 0 % 05/19/22 15:03 Nucleated RBCs # 0.0 /100WBC 05/19/22 15:03 Sodium 134 mmol/L (136-145) L 05/19/22 15:03 Potassium 4.2 mmol/L (3.5-5.1) 05/19/22 15:03 Chloride 96 mmol/L (98-107) L 05/19/22 15:03 Carbon Dioxide 25 mmol/L (22-29) 05/19/22 15:03 Anion Gap 17.2 (5-19) 05/19/22 15:03 BUN 7 mg/dL (6-20) 05/19/22 15:03 Creatinine 0.7 mg/dL (0.5-0.9) 05/19/22 15:03 GFR Calculation 87.2 mL/min (90-130) L 05/19/22 15:03 Glucose 104 mg/dL (65-115) 05/19/22 15:03 Calculated Osmolality 276 mOsm/kg (285-295) L 05/19/22 15:03 Calcium 9.6 mg/dL (8.5-10.5) 05/19/22 15:03 Total Bilirubin 0.5 mg/dL (0.15-1.2) 05/19/22 15:03 AST 13 U/L (0-32) 05/19/22 15:03 ALT 12 U/L (0-33) 05/19/22 15:03 Alkaline Phosphatase 96 U/L (35-105) 05/19/22 15:03 Total Protein 7.0 g/dL (6.6-8.7) 05/19/22 15:03 Albumin 4.3 g/dL (3.5-5.2) 05/19/22 15:03 Globulin 2.7 g/dL (1.3-4.6) 05/19/22 15:03 TSH 0.22 uIU/mL (0.27-4.20) L 05/19/22 15:03 Free T4 1.61 ng/dL (0.82-1.77) 05/19/22 15:03 HCG, Qual Negative (Negative) 05/19/22 14:15 Salicylates < 0.3 mg/dL (3-10) L 05/19/22 15:03 Urine Opiates Screen Negative ng/mL (Negative) 05/19/22 14:15 Acetaminophen < 5.0 ug/mL (10-30) L 05/19/22 15:03 Ur Barbiturates Screen Negative ng/mL (Negative) 05/19/22 14:15 Ur Phencyclidine Scrn Negative ng/mL (Negative) 05/19/22 14:15 Ur Amphetamines Screen Negative ng/mL (Negative) 05/19/22 14:15 U Benzodiazepines Scrn Positive ng/mL (Negative) H 05/19/22 14:15 Urine Cocaine Screen Negative ng/mL (Negative) 05/19/22 14:15 U Marijuana (THC) Screen Positive ng/mL (Negative) H 05/19/22 14:15 Ethyl Alcohol < 10 mg/dL (0-10) 05/19/22 15:03 Discharge Plan Discharge Patient Disposition: Admitted As Inpatient Admit Provider: Royal Dawson Clinical Impression: Suicidal ideation, Depression Condition: Stable Discharge Diet: Regular Discharge Activity: Resume usual activity Coding Level of Care Code ED Change Analyst for Remington Parada
[2022-05-19 13:49] VITALS: BP 164/92; PULSE 86; RESP 14; TEMP 37; O2SAT 98; BMI 27.4
[2022-05-19 14:22] VITALS: RESP 18
[2022-05-19 14:36] LABS: HCG Qualitative Urine. Negative (Negative)
[2022-05-19 14:42] LABS: Amphetamines Screen Urine Negative (Negative); Barbiturates Screen Urine Negative (Negative); Benzodiazepines Screen Urine Positive (Negative); Cocaine Screen Urine Negative (Negative); Opiate Screen Urine Negative (Negative); PCP Screen Urine Negative (Negative); THC Screen Urine Positive (Negative)
[2022-05-19 15:20] LABS: Basophils # 0.1 10^3/uL (0.0-0.1); Eosinophils # 0.2 10^3/uL (0.0-0.8); Eosinophils % 3.4 %; Hematocrit 39.7 % (37.0-47.0); Hemoglobin 12.8 g/dL (11.5-15.3); Lymphocytes # 2.4 10^3/uL (0.8-4.8); Lymphocytes % 35.4 %; Mean Corpuscular HGB Conc 32.2 g/dL (30.0-36.0); Mean Corpuscular Hemoglobin 31.3 pg (28.0-34.0); Mean Corpuscular Volume 97.1 fl (81-99); Mean Platelet Volume 9.7 fL (7.4-10.4); Monocytes # 0.4 10^3/uL (0.2-0.9); Monocytes % 6.1 %; Neutrophils % 53.7 %; Nucleated Red Blood Cells % 0 %; Platelet Count 321 10^3/cmm (130-400); Red Blood Count 4.09 10^6/uL (4.1-5.3); Red Cell Distribution Width 12.9 % (12.1-15.1); White Blood Count 6.7 10^3/uL (4.0-10.0)
[2022-05-19 15:53] LABS: Alanine Aminotransferase 12 U/L (0-33); Albumin Level 4.3 g/dL (3.5-5.2); Alkaline Phosphatase 96 U/L (35-105); Anion Gap 17.2 (5-19); Aspartate Amino Transferase 13 U/L (0-32); Blood Urea Nitrogen 7 mg/dL (6-20); Calcium 9.6 mg/dL (8.5-10.5); Carbon Dioxide 25 mmol/L (22-29); Chloride 96 mmol/L (98-107); Globulin 2.7 g/dL (1.3-4.6); Glomerular Filtration Rate 87.2 mL/min (90-130); Glucose 104 mg/dL (65-115); Osmolality Calculated 276 mOsm/kg (285-295); Potassium 4.2 mmol/L (3.5-5.1); Sodium 134 mmol/L (136-145); Thyroid Stimulating Hormone 0.22 uIU/mL (0.27-4.20); Total Bilirubin 0.5 mg/dL (0.15-1.2)
[2022-05-19 15:54] LABS: Acetaminophen < 5.0 ug/mL (10-30); Alcohol Level < 10 mg/dL (0-10); Salicylate < 0.3 mg/dL (3-10)
[2022-05-19 16:49] LABS: Free T4 Free Thyroxine 1.61 ng/dL (0.82-1.77)
[2022-05-19] MEDS: acetaminophen 500 mg Tablet 1000 MG PO (16:58)
--- NOTE | 2022-05-19 17:42 | PC.NURSE ---
Report called to Shauna on NPU
[2022-05-19 17:43] VITALS: BP 146/76; PULSE 88; TEMP 37.1; O2SAT 96
[2022-05-19 18:08] VITALS: BP 148/90; PULSE 86; RESP 18; TEMP 36.6; O2SAT 97
[2022-05-19] MEDS: gabapentin 400 mg Capsule PO (20:45)
[2022-05-19 21:33] VITALS: BP 113/74; PULSE 71; RESP 16; TEMP 36.7; O2SAT 96
[2022-05-19] MEDS: trazodone 50 mg Tablet PO (21:42)
[2022-05-20 06:00] VITALS: BP 146/91; PULSE 75; RESP 16; TEMP 36.9; O2SAT 97
[2022-05-20] MEDS: CELEcoxib 200 mg Capsule PO ×2 (09:26→18:47)
[2022-05-20] MEDS: levothyroxine 112 mcg Tablet PO (09:26)
[2022-05-20] MEDS: famotidine 20 mg Tablet PO (09:26)
[2022-05-20] MEDS: gabapentin 400 mg Capsule PO ×3 (09:26→20:10)
[2022-05-20] MEDS: docusate sodium 100 mg Capsule PO ×2 (09:26→18:47)
[2022-05-20] MEDS: fluoxetine 20 mg Capsule 40 MG PO (09:27)
[2022-05-20] MEDS: BuSPIRONE 10 mg Tablet 15 MG PO ×2 (09:27→18:46)
[2022-05-20] MEDS: fluoxetine 20 mg Capsule PO (09:27)
[2022-05-20] MEDS: acetaminophen 325 mg Tablet 650 MG PO ×3 (09:29→20:31)
[2022-05-20] MEDS: atorvastatin 40 mg Tablet 20 MG PO (09:30)
--- NOTE | 2022-05-20 10:33 | PC.NURSE ---
Pt received atorvastatin after she received her tylenol; inadvertantly not saved.
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
[2022-05-20 14:00] VITALS: BP 142/88; PULSE 77; RESP 17; TEMP 36.6; O2SAT 96
[2022-05-20] MEDS: nicotine 2 mg Gum BUCCAL (18:47)
[2022-05-20] MEDS: trazodone 50 mg Tablet PO (20:32)
--- NOTE | 2022-05-20 20:35 | PC.NURSE ---
pt came to nurses station stating she has pain and cannot sleep. pt was given tylenol and trazodone as ordered.
[2022-05-20 22:00] VITALS: BP 125/78; PULSE 68; RESP 16; TEMP 36.7; O2SAT 95
[2022-05-21] MEDS: acetaminophen 325 mg Tablet 650 MG PO ×4 (05:06→18:25)
--- NOTE | 2022-05-21 05:08 | PC.NURSE ---
PRN tylenol given as ordered for pt complaint of a headache.
[2022-05-21 06:00] VITALS: BP 131/91; PULSE 72; RESP 18; TEMP 36.4; O2SAT 95
--- NOTE | 2022-05-21 06:30 | PC.NURSE ---
pt slept most of night, asked RN for walker, PT luther entered.
[2022-05-21] MEDS: fluoxetine 20 mg Capsule 80 MG PO (08:25)
[2022-05-21] MEDS: levothyroxine 112 mcg Tablet PO (08:25)
[2022-05-21] MEDS: gabapentin 400 mg Capsule PO ×3 (08:25→20:42)
[2022-05-21] MEDS: docusate sodium 100 mg Capsule PO ×2 (08:25→20:41)
[2022-05-21] MEDS: BuSPIRONE 10 mg Tablet 15 MG PO ×2 (08:26→20:42)
[2022-05-21] MEDS: CELEcoxib 200 mg Capsule PO ×2 (08:26→20:42)
[2022-05-21] MEDS: famotidine 20 mg Tablet PO (08:26)
[2022-05-21] MEDS: atorvastatin 40 mg Tablet 20 MG PO (08:28)
[2022-05-21 14:00] VITALS: BP 148/74; PULSE 83; RESP 20; TEMP 37; O2SAT 96
[2022-05-21] MEDS: nicotine 2 mg Gum BUCCAL ×2 (14:17→16:26)
[2022-05-21 16:33] VITALS: BP 148/74; PULSE 83; RESP 20; TEMP 37; O2SAT 96
--- NOTE | 2022-05-21 17:13 | W.PM.NPUPNS ---
Subjective NPU Subjective: Patient presented today reporting that she is still feeling overwhelmed out her life and the situation with the court hearing. She reports that it is her understanding the disability hearing date has been pushed back. Denied any problems with the increase in the Prozac and we discussed the risks, benefits and alternatives of initiating 5 mg p.o. every morning for augmentation and she understood and agreed to proceed as is documented in this note. Mental Status Exam MSE Comments: This is an overweight white female in hospital scrubs with grooming and but adequate eye contact. No abnormal movements except for mild psychomotor retardation. She is hard of hearing requiring clear and directed speech. No abnormal involuntary motor? movements. Cooperative with exam in mild distress. Speech was slightly decreased rate and volume. Mood described as about the same, affect is a little brighter.? Thought process: linear and logical.?Thought content: patient denies any suicidal or homicidal ideation, no delusions reported or noted and did not appear to be attending to internal stimuli. She denied auditory or visual hallucinations. Attention and concentration: intact.??Memory appeared mostly reliable. She is alert and oriented times 3. ? Insight and judgment limited. ? Impulse control is impaired. Vitals/I&O/Wt Last Vital Signs Temp 98.1 F 05/21/22 21:53 Pulse 72 05/21/22 21:53 Resp 16 05/21/22 21:53 BP 155/85 05/21/22 21:53 Pulse Ox 96 05/21/22 21:53 O2 Del Method 05/21/22 21:53 Data NPU 05/19/22 15:03 05/19/22 15:03 A&P Assessment and plan (1) Panic attacks: (2) Major depressive disorder: Qualifiers: Major depression recurrence: recurrent Active/Remission status: currently active Major depression episode severity: mild Qualified Code(s): F33.0 - Major depressive disorder, recurrent, mild (3) Depression with suicidal ideation: (4) Suicidal ideation: Plan This is a 56 year old white female with a history of chronic pain and a long history of major depressive disorder, who presents reporting recent stability in the [facility] program with upcoming disability hearing with reports of increased feelings of futility and suicidal thoughts. 1. We will attempt to gather collateral information including outpatient records. 2. Continue current medications. Increased Prozac to 80 mg daily and initiate Abilify 5 mg p.o. every morning. 3. Encourage individual, group and milieu therapy 4. Continue q-15 minute check for safety 5. Recommend sober living treatment at the highest level of care to which the patient is willing to commit. Involuntary Hold Information 96 Hour Hold: 96 Hour Involuntary Admission: No Attestations NPU Medical Necessity Statement*: Inpatient psychiatric hospitalization is medically necessary and the clinically appropriate intervention at this time. We will monitor/initiate medications and make changes as indicated. Likely length of stay 2-4 days. Coding Level of Care Code Acute Code for g Fwd Diagnoses Panic attacks F41.0 Major depressive disorder F33.0 Major depression recurrence: recurrent Active/Remission status: currently active Major depression episode severity: mild Depression with suicidal ideation F32.A; R45.851 Suicidal ideation R45.851
[2022-05-21] MEDS: trazodone 50 mg Tablet PO (21:42)
[2022-05-21 21:53] VITALS: BP 155/85; PULSE 72; RESP 16; TEMP 36.7; O2SAT 96
--- NOTE | 2022-05-21 22:30 | PC.NURSE ---
pt observed ambulating without walker, encouraged pt use walker when up out of bed for safety precautions. Discussed Fall precautions. pt verbalized understanding. pt wanted to take a bath and encouraged to take shower instead for safety reasons. pt understood, showered tonight.
--- NOTE | 2022-05-21 22:53 | PC.NURSE ---
pt requested Trazodone, given as ordered
[2022-05-22] MEDS: acetaminophen 325 mg Tablet 650 MG PO ×3 (03:07→22:32)
--- NOTE | 2022-05-22 03:17 | PC.NURSE ---
pt requested Tylenol for left hip pain 08/24, system alert pt approaching max daily dosing, RN notified patient. Discussed other pain relieving alternatives, changing position, ice/heat, and/or pillow between knees, encouraged patient to also use rolling walker when ambulating.
[2022-05-22 06:00] VITALS: BP 129/87; PULSE 80; RESP 15; TEMP 36.4; O2SAT 95
[2022-05-22] MEDS: BuSPIRONE 10 mg Tablet 15 MG PO ×2 (08:08→21:54)
[2022-05-22] MEDS: famotidine 20 mg Tablet PO (08:08)
[2022-05-22] MEDS: fluoxetine 20 mg Capsule 80 MG PO (08:08)
[2022-05-22] MEDS: atorvastatin 40 mg Tablet 20 MG PO (08:09)
[2022-05-22] MEDS: CELEcoxib 200 mg Capsule PO ×2 (08:09→21:54)
[2022-05-22] MEDS: docusate sodium 100 mg Capsule PO ×2 (08:09→21:54)
[2022-05-22] MEDS: ARIPiprazole 10 mg Tablet 5 MG PO (08:09)
[2022-05-22] MEDS: gabapentin 400 mg Capsule PO ×3 (08:09→21:54)
[2022-05-22] MEDS: levothyroxine 112 mcg Tablet PO (08:09)
[2022-05-22] MEDS: nicotine 2 mg Gum BUCCAL (08:46)
[2022-05-22 14:00] VITALS: BP 150/96; PULSE 87; RESP 18; TEMP 36.6; O2SAT 97
--- NOTE | 2022-05-22 15:46 | P.NPUPN_ITS ---
Subjective NPU Subjective: Patient presented today reporting that she is trying to figure out where all her options are. She reports she is doing okay with the Abilify. She continues to worry about her situation overall. We do know that she will be able to return to [employer]. She denies any new or pressing concerns and denies any side effects to the new medication or increase in Prozac. Mental Status Exam MSE Comments: This is an overweight white female in hospital scrubs with grooming and but adequate eye contact. No abnormal movements except for mild psychomotor retardation. She is hard of hearing requiring clear and directed speech. No abnormal involuntary motor?movements. Cooperative with exam in mild distress. Speech was slightly decreased rate and volume. Mood described as okay, affect is a little brighter.? Thought process: linear and logical.?Thought content: patient denies any suicidal or homicidal ideation, no delusions reported or noted and did not appear to be attending to internal stimuli. She denied auditory or visual hallucinations. Attention and concentration: intact.??Memory appeared mostly reliable. She is alert and oriented times 3. ? Insight and judgment limited. ? Impulse control is impaired. Vitals/I&O/Wt Last Vital Signs Temp 98 F 05/22/22 14:00 Pulse 87 05/22/22 14:00 Resp 18 05/22/22 14:00 BP 150/96 05/22/22 14:00 Pulse Ox 97 05/22/22 14:00 O2 Del Method 05/22/22 14:00 Data NPU 05/19/22 15:03 05/19/22 15:03 A&P Assessment and plan (1) Panic attacks: (2) Major depressive disorder: Qualifiers: Major depression recurrence: recurrent Active/Remission status: currently active Major depression episode severity: mild Qualified Code(s): F33.0 - Major depressive disorder, recurrent, mild (3) Depression with suicidal ideation: (4) Suicidal ideation: Plan This is a 56 year old white female with a history of chronic pain and a long history of major depressive disorder, who presents reporting recent stability in the [facility] program with upcoming disability hearing with reports of increased feelings of futility and suicidal thoughts. 1. We will attempt to gather collateral information including outpatient records. 2. Continue current medications. Increased Prozac to 80 mg daily and initiated Abilify 5 mg p.o. every morning. 3. Encourage individual, group and milieu therapy 4. Continue q-15 minute check for safety 5. Recommend sober living treatment at the highest level of care to which the patient is willing to commit. Involuntary Hold Information 96 Hour Hold: 96 Hour Involuntary Admission: No Attestations NPU Medical Necessity Statement*: Inpatient psychiatric hospitalization is medically necessary and the clinically appropriate intervention at this time. We will monitor/initiate medications and make changes as indicated. Likely length of stay 1-3 days. Coding Level of Care Code Acute Code for g Fwd Diagnoses Panic attacks F41.0 Major depressive disorder F33.0 Major depression recurrence: recurrent Active/Remission status: currently active Major depression episode severity: mild Depression with suicidal ideation F32.A; R45.851 Suicidal ideation R45.851
[2022-05-22 22:00] VITALS: BP 128/72; PULSE 76; RESP 17; TEMP 36.9; O2SAT 96
[2022-05-22] MEDS: trazodone 50 mg Tablet PO (22:32)
[2022-05-22] MEDS: ondansetron 4 MG Tablet PO (22:32)
[2022-05-23 06:00] VITALS: BP 137/77; PULSE 68; RESP 17; TEMP 36.4; O2SAT 92
[2022-05-23] MEDS: acetaminophen 325 mg Tablet 650 MG PO ×2 (06:22→11:57)
[2022-05-23] MEDS: nicotine 2 mg Gum BUCCAL ×2 (06:56→09:23)
[2022-05-23] MEDS: fluoxetine 20 mg Capsule 80 MG PO (09:21)
[2022-05-23] MEDS: BuSPIRONE 10 mg Tablet 15 MG PO ×2 (09:21→21:35)
[2022-05-23] MEDS: CELEcoxib 200 mg Capsule PO ×2 (09:22→21:35)
[2022-05-23] MEDS: ARIPiprazole 10 mg Tablet 5 MG PO (09:22)
[2022-05-23] MEDS: levothyroxine 112 mcg Tablet PO (09:22)
[2022-05-23] MEDS: docusate sodium 100 mg Capsule PO ×2 (09:23→21:35)
[2022-05-23] MEDS: atorvastatin 40 mg Tablet 20 MG PO (09:23)
[2022-05-23] MEDS: gabapentin 400 mg Capsule PO ×3 (09:23→21:35)
[2022-05-23] MEDS: famotidine 20 mg Tablet PO (09:57)
--- NOTE | 2022-05-23 13:04 | W.PM.NPUPNS ---
Subjective NPU Subjective: Patient presented today reporting that she is still struggling with her sleep and anxiety/mood. We discussed the risk benefits and alternatives of increasing her Abilify to 10 mg p.o. every morning as well as increasing trazodone to 100 mg p.o. nightly and she understood and agreed to proceed as is documented in this note. We discussed connecting with [facility] and the likelihood of discharge on Friday. Mental Status Exam MSE Comments: This is an overweight white female in hospital scrubs with grooming and but adequate eye contact. No abnormal movements except for mild psychomotor retardation. She is hard of hearing requiring clear and directed speech. No abnormal involuntary motor?movements. Cooperative with exam in mild distress. Speech was slightly decreased rate and volume. Mood described as okay, but stressed, affect is a little brighter.? Thought process: linear and logical.?Thought content: patient denies any suicidal or homicidal ideation, no delusions reported or noted and did not appear to be attending to internal stimuli. She denied auditory or visual hallucinations. Attention and concentration: intact.??Memory appeared mostly reliable. She is alert and oriented times 3. ? Insight and judgment limited. ? Impulse control is impaired. Vitals/I&O/Wt Last Vital Signs Temp 97.6 F 05/23/22 06:00 Pulse 68 05/23/22 06:00 Resp 17 05/23/22 06:00 BP 137/77 05/23/22 06:00 Pulse Ox 92 05/23/22 06:00 O2 Del Method 05/23/22 06:00 Data NPU 05/19/22 15:03 05/19/22 15:03 A&P Assessment and plan (1) Panic attacks: (2) Major depressive disorder: Qualifiers: Major depression recurrence: recurrent Active/Remission status: currently active Major depression episode severity: mild Qualified Code(s): F33.0 - Major depressive disorder, recurrent, mild (3) Depression with suicidal ideation: (4) Suicidal ideation: Plan This is a 56 year old white female with a history of chronic pain and a long history of major depressive disorder, who presents reporting recent stability in the [facility] program with upcoming disability hearing with reports of increased feelings of futility and suicidal thoughts. 1. We will attempt to gather collateral information including outpatient records. 2. Continue current medications. Increased Prozac to 80 mg daily and initiated Abilify 5 mg p.o. every morning. Abilify to 10 mg p.o. daily and trazodone 100 mg p.o. nightly 3. Encourage individual, group and milieu therapy 4. Continue q-15 minute check for safety 5. Recommend sober living treatment at the highest level of care to which the patient is willing to commit. Involuntary Hold Information 96 Hour Hold: 96 Hour Involuntary Admission: No Attestations NPU Medical Necessity Statement*: Inpatient psychiatric hospitalization is medically necessary and the clinically appropriate intervention at this time. We will monitor/initiate medications and make changes as indicated. Likely length of stay 1-3 days. Coding Level of Care Code Acute Code for [facility] Fwd Diagnoses Panic attacks F41.0 Major depressive disorder F33.0 Major depression recurrence: recurrent Active/Remission status: currently active Major depression episode severity: mild Depression with suicidal ideation F32.A; R45.851 Suicidal ideation R45.851
[2022-05-23 14:00] VITALS: BP 165/98; PULSE 71; RESP 18; TEMP 36.8; O2SAT 95
[2022-05-23] MEDS: trazodone 50 mg Tablet PO (21:35)
[2022-05-23 22:00] VITALS: BP 171/79; PULSE 61; RESP 15; TEMP 36.7; O2SAT 95
[2022-05-24] MEDS: acetaminophen 325 mg Tablet 650 MG PO ×2 (05:23→11:40)
[2022-05-24 06:00] VITALS: BP 126/95; PULSE 86; RESP 15; TEMP 36.4; O2SAT 96
[2022-05-24] MEDS: levothyroxine 112 mcg Tablet PO (08:13)
[2022-05-24] MEDS: fluoxetine 20 mg Capsule 80 MG PO (08:28)
[2022-05-24] MEDS: BuSPIRONE 10 mg Tablet 15 MG PO (08:28)
[2022-05-24] MEDS: famotidine 20 mg Tablet PO (08:29)
[2022-05-24] MEDS: ARIPiprazole 10 mg Tablet 5 MG PO (08:29)
[2022-05-24] MEDS: docusate sodium 100 mg Capsule PO (08:29)
[2022-05-24] MEDS: CELEcoxib 200 mg Capsule PO (08:29)
[2022-05-24] MEDS: gabapentin 400 mg Capsule PO ×2 (08:29→14:41)
[2022-05-24] MEDS: atorvastatin 40 mg Tablet 20 MG PO (08:29)
[2022-05-24] MEDS: nicotine 2 mg Gum BUCCAL (08:57)
[2022-05-24] MEDS: ondansetron 4 MG Tablet PO (11:40)
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
[2022-05-24 14:21] VITALS: BP 126/95; PULSE 86; RESP 15; TEMP 36.4; O2SAT 96
== END 2022-05-24 16:01 | disposition home or self-care (01) | DRG 885 ==
LOC: ER 14:43 → NP 17:38
PROVIDERS: Admitting Provider Psychiatry & Neurology Psychiatry; Emergency Provider Emergency Medicine; PCP Family Medicine; Visit Provider Psychiatry & Neurology Psychiatry
DX: F33.0 Major depressive disorder, recurrent, mild (principal); R45.851 Suicidal ideations; F41.0 Panic disorder [episodic paroxysmal anxiety]; E03.9 Hypothyroidism, unspecified; J44.9 Chronic obstructive pulmonary disease, unspecified; G89.29 Other chronic pain; M47.816 Spondylosis without myelopathy or radiculopathy, lumbar region; F17.210 Nicotine dependence, cigarettes, uncomplicated; Z62.810 Personal history of physical and sexual abuse in childhood; Z59.01 Sheltered homelessness
CPT/HCPCS: 80053; 80306; 80307; 81025; 84439; 84443; 85025; 97150; 97161; 97165; 97530; 99238; 99285; Q0162

== ENCOUNTER → 2022-05-30 12:52 | Outpatient (BNVA) | payer MEDICAID, SELFPAY | PROVIDERS: PCP Family Medicine; Visit Provider Physician Assistant | DX: M51.36 Other intervertebral disc degeneration, lumbar region (principal); M47.816 Spondylosis without myelopathy or radiculopathy, lumbar region; M48.04 Spinal stenosis, thoracic region | CPT/HCPCS: 72110; 99203 ==

== ENCOUNTER → 2022-06-04 11:10 | Outpatient (BNVA) | payer MEDICAID, SELFPAY | PROVIDERS: PCP Family Medicine; Visit Provider Family Medicine | DX: Z12.11 Encounter for screening for malignant neoplasm of colon (principal); R30.0 Dysuria; Z71.1 Person with feared health complaint in whom no diagnosis is made | CPT/HCPCS: 87491; 87591 ==

== ENCOUNTER 2022-06-07 22:09 | Emergency (ER) | payer MEDICAID, SELFPAY ==
[2022-06-07 22:14] VITALS: BP 150/85; PULSE 92; RESP 20; TEMP 36.6; O2SAT 98; BMI 23.8
--- NOTE | 2022-06-07 22:43 | PC.NURSE ---
Officer here from [facility] dept. for patient statement.
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
[2022-06-08 00:49] VITALS: PULSE 90; RESP 16
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
--- NOTE | 2022-06-18 15:38 | DCPLANNER ---
sales analytics manager called patient due to no primary care physician - patient stated that she sees Dr. Franco.
== END 2022-06-08 01:00 | disposition home or self-care (01) ==
PROVIDERS: Emergency Provider Emergency Medicine
DX: S02.2XXA Fracture of nasal bones, initial encounter for closed fracture (principal); E03.9 Hypothyroidism, unspecified; F17.210 Nicotine dependence, cigarettes, uncomplicated; Y09 Assault by unspecified means
CPT/HCPCS: 70450; 70486; 99284

== ENCOUNTER 2022-06-26 06:00 | Outpatient (RCR) | payer MEDICAID, SELFPAY | END 2022-07-14 23:59 | disposition home or self-care (01) | LOC: SPT 06:00 | PROVIDERS: PCP Family Medicine; Visit Provider Physician Assistant | DX: G89.29 Other chronic pain (principal); M54.50 Low back pain, unspecified | CPT/HCPCS: 97110; 97161 ==

== ENCOUNTER → 2022-07-09 10:43 | Outpatient (BNVA) | payer MEDICAID, SELFPAY | PROVIDERS: PCP Family Medicine; Visit Provider Surgery | DX: Z12.11 Encounter for screening for malignant neoplasm of colon (principal) | CPT/HCPCS: 99024; 99203 ==

== ENCOUNTER 2022-07-09 11:20 | Emergency (ER) | payer MEDICAID, SELFPAY ==
[2022-07-09 11:36] VITALS: BP 151/108; PULSE 85; RESP 16; TEMP 36.7; O2SAT 96
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
--- NOTE | 2022-07-09 12:05 | XR_ITS ---
WS: [id number] Exam: XR KUB [id number] Date/Time of Exam: 07/09/2022 12:23 PM Reason For Exam: Constipation No sign of bowel obstruction or free air. Average amount stool in the colon. No sign of organ enlarge ment. Postoperative change with hardware at the lumbosacral junction. Surgical clips in the left pelv is. Moderate DJD of the right hip. XR/XR KUB [id number] IMPRESSION: 1. No acute abdominal process identified.
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
[2022-07-09] MEDS: cyclobenzaprine 10 mg Tablet PO (12:13)
[2022-07-09] MEDS: dexamethasone 10 mg/mL INJ IM (12:14)
[2022-07-09] MEDS: ketorolac 60 mg/2 mL INJ IM (12:14)
== END 2022-07-09 13:33 | disposition home or self-care (01) ==
PROVIDERS: Emergency Provider Physician Assistant; PCP Family Medicine
DX: M54.50 Low back pain, unspecified (principal); F17.210 Nicotine dependence, cigarettes, uncomplicated
CPT/HCPCS: 72100; 74018; 96372; 99284; J1100; J1885

== ENCOUNTER 2022-07-15 06:00 | Outpatient (RCR) | payer MEDICAID, SELFPAY | END 2022-08-08 23:59 | disposition home or self-care (01) | LOC: SPT 06:00 | PROVIDERS: PCP Family Medicine; Visit Provider Physician Assistant | DX: M54.50 Low back pain, unspecified (principal); G89.29 Other chronic pain | CPT/HCPCS: 97110 ==

== ENCOUNTER → 2022-07-17 15:01 | Outpatient (BNVA) | payer MEDICAID, SELFPAY | PROVIDERS: PCP Family Medicine; Visit Provider Psychiatry & Neurology Psychiatry | DX: F43.12 Post-traumatic stress disorder, chronic (principal) | CPT/HCPCS: 80061; 83036 ==

== ENCOUNTER → 2022-07-23 13:24 | Outpatient (BNVA) | payer MEDICAID, SELFPAY ==
[2022-07-31 13:09] VITALS: BP 140/84; BMI 24.0
== END ==
PROVIDERS: PCP Family Medicine; Visit Provider Physician Assistant
DX: M54.50 Low back pain, unspecified (principal); M47.816 Spondylosis without myelopathy or radiculopathy, lumbar region; Z98.1 Arthrodesis status; M54.6 Pain in thoracic spine
CPT/HCPCS: 99203

== ENCOUNTER → 2022-07-23 13:28 | Outpatient (BNVA) | payer MEDICAID, SELFPAY | PROVIDERS: PCP Family Medicine; Visit Provider Physician Assistant | DX: M54.50 Low back pain, unspecified (principal); M51.37 Other intervertebral disc degeneration, lumbosacral region; M47.816 Spondylosis without myelopathy or radiculopathy, lumbar region | CPT/HCPCS: 72072; 72110 ==

== ENCOUNTER 2022-07-31 08:07 | Day surgery (SDC) | payer MEDICAID, SELFPAY ==
[2022-07-30 10:30] VITALS: BMI 23.3
[2022-07-31 08:44] VITALS: BP 129/77; PULSE 79; RESP 17; TEMP 36.2; O2SAT 95
[2022-07-31] MEDS: sodium chloride 0.9% 1,000 ML 30 ML IV (08:45)
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
--- NOTE | 2022-07-31 11:33 | W.PM.OPSUD ---
Surgery/Procedure H&P Update DATE OF PROCEDURE: July 31, 2022 DATE H&P PERFORMED: 07/09/22 H&P UPDATE INFORMATION: I have reviewed H&P completed within last 30 days, I have examined patient prior to procedure and No changes to prior documentation PLANNED PROCEDURE: Operation Date: 07/31/22 10:15 Proposed Procedures p [id number] Colon Z12.11(Not Applicable) - Chris Jay DO
[2022-07-31 12:08] VITALS: BP 109/79; PULSE 79; RESP 16; TEMP 36.1; O2SAT 99
[2022-07-31 12:24] VITALS: BP 128/87; PULSE 86; RESP 18; TEMP 36.2; O2SAT 96
--- NOTE | 2022-07-31 14:26 | ANE.PACU2 ---
Inpatient post-anesthesia follow up: Airway intact: Yes Vital signs: Temperature 97.1 F Pulse Rate 86 Respiratory Rate 18 Blood Pressure 128/87 Pulse Oximetry 96 Oxygen Delivery Me thod Room Air Oxygen Flow Rate Fraction of Inspir ed Oxygen Hydration adequate: Yes Nausea and vomiting: No Pain level: 1 Mental status: Baseline
== END 2022-07-31 12:41 | disposition home or self-care (01) ==
PROVIDERS: PCP Family Medicine; Visit Provider Surgery
PROC: 0DJD8ZZ Inspection of Lower Intestinal Tract, Via Natural or Artificial Opening Endoscopic (ICD-10-PCS; CPT 45378; principal; 2022-07-31 10:15)
DX: Z12.11 Encounter for screening for malignant neoplasm of colon (principal); J44.9 Chronic obstructive pulmonary disease, unspecified; G47.30 Sleep apnea, unspecified; K21.9 Gastro-esophageal reflux disease without esophagitis; F41.9 Anxiety disorder, unspecified; F32.A Depression, unspecified; F17.210 Nicotine dependence, cigarettes, uncomplicated; Z59.01 Sheltered homelessness; K57.30 Diverticulosis of large intestine without perforation or abscess without bleeding; K64.8 Other hemorrhoids
CPT/HCPCS: 45378; J2704; J3490; J7030

== ENCOUNTER → 2023-01-28 14:25 | Outpatient (BNVA) | payer MEDICAID, SELFPAY ==
[2022-07-31 13:09] VITALS: BP 140/84; BMI 24.0
== END ==
PROVIDERS: PCP Family Medicine; Visit Provider Family Medicine
DX: E78.2 Mixed hyperlipidemia (principal); E03.9 Hypothyroidism, unspecified
CPT/HCPCS: 80053; 80061; 84439; 84443; 85025

== ENCOUNTER → 2023-02-11 10:05 | Outpatient (BNVA) | payer MEDICAID, SELFPAY ==
[2022-07-31 13:09] VITALS: BP 140/84; BMI 24.0
== END ==
PROVIDERS: PCP Family Medicine; Visit Provider Physician Assistant
DX: M47.22 Other spondylosis with radiculopathy, cervical region (principal); M50.30 Other cervical disc degeneration, unspecified cervical region
CPT/HCPCS: 72040; 99214

== ENCOUNTER → 2023-02-19 09:12 | Outpatient (BNVA) | payer MEDICAID, SELFPAY ==
[2022-07-31 13:09] VITALS: BP 140/84; BMI 24.0
== END ==
PROVIDERS: PCP Family Medicine; Visit Provider Family Medicine
DX: M51.37 Other intervertebral disc degeneration, lumbosacral region (principal); M50.30 Other cervical disc degeneration, unspecified cervical region; N89.8 Other specified noninflammatory disorders of vagina; Z71.1 Person with feared health complaint in whom no diagnosis is made; N94.6 Dysmenorrhea, unspecified; M47.22 Other spondylosis with radiculopathy, cervical region; F15.21 Other stimulant dependence, in remission
CPT/HCPCS: 80307; 81003; 81025; 86592; 87086; 87184; 87491; 87591

== ENCOUNTER 2023-03-11 13:37 | Outpatient (CLI) | payer MEDICAID, SELFPAY ==
[2022-07-31 13:09] VITALS: BP 140/84; BMI 24.0
--- NOTE | 2023-03-11 16:00 | MR_ITS ---
WS: [id number] MRI CERVICAL SPINE NONCONTRAST TECHNIQUE: Sagittal T1, T2 and STIR imaging. Axial T2, gradient, and fiesta imaging. CLINICAL INFORMATION: cervical neck pain COMPARISON: MRI 2012 FINDINGS: Straightening of the normal cervical lordosis. Moderate spondylitic changes. Prominent anterior hyper trophic changes with slight indentation on the hypopharynx. Hypertrophic changes worse at C3-C5. Cord signal is normal. Spondylitic changes significantly advanced since 2012. C2-C3: Mild facet arthropathy. Spinal canal and foramen are patent. C3-C4: Disc osteophyte complex with endplate ridging. Uncovertebral joint hypertrophy. Mild facet art hropathy. Mild LEFT greater than RIGHT bony foraminal narrowing. C4-C5: Disc osteophyte complex with LEFT paracentral protrusion. Slight indentation of the LEFT ventr al cervical cord. Mild central canal stenosis. Moderate LEFT and mild RIGHT bony foraminal narrowing. Moderate facet arthropathy. C5-C6: Disc osteophyte complex with endplate ridging. Mild central canal stenosis. Slight indentation cervical cord. Moderate to severe RIGHT and mild LEFT bony foraminal narrowing. Moderate facet arthr opathy. Uncovertebral joint hypertrophy. C6-C7: Disc osteophyte complex with endplate ridging. Moderate LEFT and mild RIGHT bony foraminal merry rowing. Moderate facet arthropathy. Tiny central protrusion with slight contact of the cervical cord. C7-T1: Mild LEFT and no significant RIGHT foraminal narrowing. Spinal canal is patent. IMPRESSION: 1. Moderate to advanced spondylitic changes cervical spine with protruding osteophytes at C3-C5 with slight indentation on the hypopharynx. 2. Mild central canal stenosis C4-C5 C5-C6 due to disc osteophyte complexes with slight contact of t he cervical cord. 3. Moderate to severe bony foraminal narrowing worse at LEFT C4-5, RIGHT C5-C6, and LEFT C6-7. 4. Mild LEFT C7-T1 foraminal narrowing.
== END 2023-03-11 13:38 | disposition home or self-care (01) ==
LOC: RAD 13:37
PROVIDERS: PCP Family Medicine; Visit Provider Physician Assistant
DX: M47.892 Other spondylosis, cervical region (principal); M48.02 Spinal stenosis, cervical region; M54.2 Cervicalgia; G89.29 Other chronic pain
CPT/HCPCS: 72141

== ENCOUNTER 2023-03-12 06:45 | Outpatient (CLI) | payer MEDICAID, SELFPAY ==
[2022-07-31 13:09] VITALS: BP 140/84; BMI 24.0
--- NOTE | 2023-03-12 07:15 | MR_ITS ---
WS: [id number] MRI LUMBAR SPINE NONCONTRAST TECHNIQUE: Sagittal T1, T2 and STIR imaging. Axial T1 and T2 imaging. CLINICAL INFORMATION: lumbar back pain COMPARISON: MRI 02/15/2020 FINDINGS: Prior postoperative changes anterior fusion L5-S1 with interbody fusion graft. No acute compression f ractures. Mild lumbar curve. L1-L2: Mild annular bulging with RIGHT paracentral protrusion. Impingement RIGHT subarticular recess. This is progressed compared to previous. Mild central canal stenosis. Mild facet arthropathy. Mild R IGHT greater than LEFT foraminal narrowing. L2-L3: Large progressed LEFT subarticular disc extrusion with impingement traversing LEFT L3 nerve ro ot in the subarticular recess. Mild LEFT greater than RIGHT foraminal narrowing. Mild facet arthropat hy. L3-L4: Mild annular bulge with a tiny central protrusion. Narrowing of the subarticular recess bilate rally. Mild facet arthropathy. Mild bilateral foraminal narrowing. L4-L5: Mild annular bulging. Spinal canal is patent. Slight retrolisthesis. Moderate LEFT and mild RI GHT foraminal narrowing. Mild facet arthropathy. L5-S1: Stable postoperative changes. Mild LEFT bony foraminal narrowing. RIGHT foramen is patent. Mil d facet arthropathy. Visualized pelvic bony structures: Normal. Paravertebral soft tissues: Normal. Mild disc osteophyte complexes in the cervical spine on the safety sealer imaging worse at C4-C6. Small disc protrusion in the thoracic spine at T6-7. IMPRESSION: 1. Stable appearing postoperative changes anterior fusion with interbody fusion graft L5-S1. 2. Large progressed LEFT L2-3 subarticular disc extrusion with inferior extension of disc material i n the subarticular recess. This impinges the traversing LEFT L3 nerve root. Recommend correlation LEF T L3 nerve root symptoms. 3. Shallow small RIGHT paracentral protrusion L1-2 new from previous with impingement on the ronald ing RIGHT L2 nerve root with mild central canal stenosis. 4. Tiny central protrusion L3-4. 5. Moderate LEFT L4-5 foraminal narrowing appears progressed compared to previous. 6. Mild LEFT L3-4, RIGHT L4-5, and bilateral L5-S1 LEFT greater than RIGHT bony foraminal narrowing.
== END 2023-03-12 06:46 | disposition home or self-care (01) ==
LOC: RAD 06:45
PROVIDERS: PCP Family Medicine; Visit Provider Physician Assistant
DX: M51.26 Other intervertebral disc displacement, lumbar region (principal)
CPT/HCPCS: 72148

== ENCOUNTER 2023-03-25 11:51 | Outpatient (RCR) | payer MEDICAID, SELFPAY ==
[2022-07-31 13:09] VITALS: BP 140/84; BMI 24.0
== END 2023-04-16 23:59 | disposition home or self-care (01) ==
LOC: SPT 11:51
PROVIDERS: PCP Family Medicine; Visit Provider Physician Assistant
DX: M54.2 Cervicalgia (principal); M54.9 Dorsalgia, unspecified; G89.29 Other chronic pain
CPT/HCPCS: 97161

== ENCOUNTER 2023-04-17 06:00 | Outpatient (RCR) | payer SELFPAY ==
[2022-07-31 13:09] VITALS: BP 140/84; BMI 24.0
== END 2023-04-30 23:59 | disposition home or self-care (01) ==
LOC: SPT 06:00
PROVIDERS: PCP Family Medicine; Visit Provider Physician Assistant
DX: M54.2 Cervicalgia (principal); M54.9 Dorsalgia, unspecified; G89.29 Other chronic pain
CPT/HCPCS: 97110

== ENCOUNTER → 2023-04-25 11:00 | Outpatient (BNVA) | payer MEDICAID, SELFPAY ==
[2022-07-31 13:09] VITALS: BP 140/84; BMI 24.0
== END ==
PROVIDERS: PCP Family Medicine; Visit Provider Nurse Practitioner Women's Health
DX: Z11.3 Encounter for screening for infections with a predominantly sexual mode of transmission (principal); Z12.4 Encounter for screening for malignant neoplasm of cervix
CPT/HCPCS: 86592; 86803; 87340; 87491; 87591; 87624; 87806

== ENCOUNTER → 2023-05-02 12:48 | Outpatient (BNVA) | payer MEDICAID, SELFPAY ==
[2022-07-31 13:09] VITALS: BP 140/84; BMI 24.0
== END ==
PROVIDERS: PCP Family Medicine; Visit Provider Orthopaedic Surgery
DX: G89.29 Other chronic pain; M25.78 Osteophyte, vertebrae; M48.02 Spinal stenosis, cervical region; Z98.1 Arthrodesis status; M54.50 Low back pain, unspecified
CPT/HCPCS: 99214

== ENCOUNTER → 2023-05-12 13:05 | Outpatient (BNVA) | payer MEDICAID, SELFPAY ==
[2022-07-31 13:09] VITALS: BP 140/84; BMI 24.0
== END ==
PROVIDERS: PCP Family Medicine; Visit Provider Psychiatry & Neurology Psychiatry
DX: F33.0 Major depressive disorder, recurrent, mild (principal)
CPT/HCPCS: 80061; 83036

== ENCOUNTER 2023-06-08 12:41 | Emergency (ER) | payer MEDICAID, SELFPAY ==
[2023-05-16 15:53] VITALS: BP 119/71; BMI 20.1
[2023-06-08 13:02] VITALS: BP 123/68; PULSE 88; RESP 18; TEMP 36.4; O2SAT 96; BMI 25.8
--- NOTE | 2023-06-08 13:11 | XRR_ITS ---
PROCEDURE INFORMATION: Exam: XR Right Shoulder Exam date and time: 06/08/2023 1:24 PM Age: 57 years old Clinical indication: Pain; Right; Prior surgery; Surgery date: 6+ months; Surgery type: RT shoulder surgery 4 yrs ago; Patient HX: Fall x 4 days ago TECHNIQUE: Imaging protocol: Radiologic exam of the right shoulder. Views: 2 or more views. COMPARISON: MR cervical spin wo con* [id number] 03/11/2023 4:11 PM FINDINGS: Bones/joints: No fracture or malalignment. Surgical hardware of the distal clavicle. Unchanged widening of the AC joint. Degenerative changes of the AC and glenohumeral joints. Soft tissues: No acute findings. XR/XR shoulder RT min 2V* [id number] IMPRESSION: No acute osseous findings.
--- NOTE | 2023-06-08 13:13 | ED_ITS ---
HPI - Extremity Problem General: Chief complaint: Extremity Injury, Upper Stated complaint: Right Shoulder pain / abd pain Time Seen by Provider: 06/08/23 13:12 History of Present Illness: 57-year-old female comes in today for co mplaints of right shoulder discomfort. Patient also made some general complaints about stress incontinence and losing her Medicaid insurance. Patient appears nontoxic. Patient is alert and oriented. Patient has increased pain with range of motion of the right shoulder. Review of Systems General: Reports: 10 or more systems reviewed and unremarkable except in HPI and below Musc: Reports: joint pain (Right shoulder pain.) PFSH ED PFSH: Medical History [place] (hard of hearing) No pertinent past medical history Neghx: htn,dm,dvt/pe PCP: Dr. Alexandra Fibromyalgia Lumbar post-laminectomy syndrome Psychiatric care Lumbar spondylosis Lumbar disc disease Depression Hypothyroidism Surgical History Hx of colonoscopy x3 History of surgery on arm left forearm and right shoulder H/O tubal ligation History of lumbar surgery Family History Grandmother No problems noted. Grandfather No problems noted. Father Diabetes Hyperchloremia Mother Diabetes Stroke Thyroid disease Hyperchloremia Hypertension Family/Other Breast cancer Paternal aunt Sister Thyroid disease Other Ovarian cancer Denies family history of Colon cancer Heart disease Uterine cancer Social History (Updated 05/12/23 @ 15:12 by Dorothy Mcintyre RN) Smoking and tobacco/nicotine status: current every day tobacco/nicotine user cigarettes Packs smoked per day: 1 Years cigarettes smoked: 40 Quit status (tobacco/nicotine): not considering quitting Second hand smoke exposure: Yes Alcohol intake: former Year of sobriety/quit date alcohol: 2021 Former alcohol use details: quit 3 months ago Substance/Drug Use: current Substance/Drug use frequency: Special occassions/opportunity only 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 service: No Current occupational status: unemployed Current occupational exposures/hazards: No Pets and animals: No Leisure activites: other Leisure activities details: play with [employer] Sexually active: No Do you think of yourself as: Straight/Heterosexual Current gender identity: Female Rubi/Adventism: Alevism Special rubi needs: No Agree to transfusion: Yes Female Reproductive History: Para: 3 Spontaneous abortions: Yes Physical Exam Const: COMMON NORMALS: alert HENMT: COMMON NORMALS: normocephalic HEAD & SCALP: normocephalic Neck/C-Spine: COMMON NORMALS: full ROM Chest: COMMONS NORMALS: normal inspection of the chest Resp: COMMON NORMALS: normal respiratory effort Cardio: COMMON NORMALS: regular rate RATE: regular rate GI: COMMON NORMALS: Soft to palpation AUSCULTATION: Yes normoactive bowel sounds PALPATION: Yes Soft to palpation and No Tenderness to palpation present (GI) : COMMON NORMALS: Yes no CVA tenderness BLADDER/KIDNEY EXAM: Yes no CVA tenderness Back/Pelvis: COMMON NORMALS: no CVA tenderness Extremity: COMMON NORMALS: full ROM Neuro: SENSORIUM/ORIENTATION: Yes alert Skin: COMMON NORMALS: turgor normal GENERAL SKIN EXAM: turgor normal Course Vital Signs: Vital signs: Vital Signs Temperature 97.5 F L 06/08/23 13:02 Pulse Rate 88 06/08/23 13:02 Respiratory Rate 18 06/08/23 13:02 Blood Pressure 123/68 06/08/23 13:02 Pulse Oximetry 96 06/08/23 13:02 Oxygen Delivery Me thod Room Air 06/08/23 13:02 MDM - Extremity (Nontraumatic) Medical Decision Making 57-year-old female comes in today for complaints of right shoulder discomfort. Patient has increased pain with range of motion of the shoulder. Positive drop test. Distal pulses and sensation are intact. Abdomen soft nontender. Patient vital signs are normal. Differential diagnosis includes rotator cuff syndrome, osteoarthritis, muscle strain. Reviewed exam with patient recommended treatment with a dose of Toradol and dexamethasone. Patient was otherwise recommended to use acetaminophen and ibuprofen and to follow-up with primary care for further instructions. Patient reported understanding agreed to plan. Lab Data Radiology Impressions Shoulder X-Ray 06/08/23 13:11 IMPRESSION: No acute osseous findings. XR interpretation done by ED provider, pending radiology final review Discharge Plan Discharge Patient Disposition: Home Clinical Impression: Female stress incontinence Right shoulder strain Qualifiers: Encounter type: initial encounter Qualified Code(s): S46.911A - Strain of unspecified muscle, fascia and tendon at shoulder and upper arm level, right arm, initial encounter Condition: Stable Prescriptions: No Action fluticasone propionate [Flonase Allergy Relief] 50 mcg/actuation spray,suspension 2 spray intranasal DAILY Qty: 16 0RF Rx Instructions: administer 2 sprays into each nostril daily albuterol sulfate [Ventolin HFA] 90 mcg/actuation HFA aerosol inhaler 2 puff inhalation Q6H PRN (Reason: Shortness Of Breath) Qty: 8.5 2RF Rx Instructions: INHALE TWO PUFFS BY MOUTH EVERY 6 HOURS as needed for SHORTNESS OF BREATH amitriptyline 50 mg tablet 50 mg PO DAILY Qty: 30 5RF fluoxetine 40 mg capsule 40 mg PO QAM Qty: 30 1RF Rx Instructions: Start after finishing 7 days of fluoxetine 20 mg daily. levothyroxine 112 mcg tablet See Rx Instructions .ROUTE .COMPLEX Qty: 30 3RF Dose Instruction: TAKE 1 TABLET BY MOUTH EVERY DAY Rx Instructions: TAKE 1 TABLET BY MOUTH EVERY DAY docusate sodium 100 mg capsule See Rx Instructions .ROUTE .COMPLEX Qty: 60 0RF Dose Instruction: take 1 capsule BY MOUTH TWICE DAILY Rx Instructions: take 1 capsule BY MOUTH TWICE DAILY cyclobenzaprine 10 mg tablet See Rx Instructions .ROUTE .COMPLEX Qty: 60 2RF Dose Instruction: TAKE 1 TABLET BY MOUTH TWICE DAILY NEEDED FOR MUSCLE SPASMS Rx Instructions: TAKE 1 TABLET BY MOUTH TWICE DAILY NEEDED FOR MUSCLE SPASMS famotidine 20 mg tablet See Rx Instructions .ROUTE .COMPLEX Qty: 60 1RF Dose Instruction: TAKE 1 TABLET BY MOUTH TWICE DAILY Rx Instructions: TAKE 1 TABLET BY MOUTH TWICE DAILY gabapentin 400 mg capsule See Rx Instructions .ROUTE .COMPLEX Qty: 90 1RF Dose Instruction: take 1 capsule BY MOUTH THREE TIMES DAILY Rx Instructions: take 1 capsule BY MOUTH THREE TIMES DAILY Discharge Orders: Discharge ED (Routine); Ordered 06/08/23 Ordered By: Franck Steel Referrals: Rakan Alexandra DO [Primary Care Provider] - Discharge Diet: Usual diet Discharge Activity: Increase activity as tolerated Patient Instructions: Urinary Incontinence (ED), Shoulder Pain (ED) Activity Restrictions/Additional Instructions: Use ice or heat to help with pain of the shoulder. Activity as tolerated. Gentle stretching and range of motion exercises of the shoulder. Take acetaminophen or ibuprofen [id number] to help with pain. Follow-up with primary care for further instructions. Return to ED for new concerns. Coding Level of Care Code ED [employer] Consultant for Remington Parada
[2023-06-08] MEDS: dexamethasone 10 mg/mL INJ IM (14:02)
[2023-06-08 14:03] VITALS: BP 123/68; PULSE 88; RESP 18; TEMP 36.4; O2SAT 96
[2023-06-08] MEDS: ketorolac 30 mg/mL INJ IM (14:03)
== END 2023-06-08 14:03 | disposition home or self-care (01) ==
PROVIDERS: Emergency Provider Nurse Practitioner Family; PCP Family Medicine
DX: S46.911A Strain of unspecified muscle, fascia and tendon at shoulder and upper arm level, right arm, initial encounter (principal); N39.3 Stress incontinence (female) (male); F17.210 Nicotine dependence, cigarettes, uncomplicated; X58.XXXA Exposure to other specified factors, initial encounter
CPT/HCPCS: 73030; 96372; 99284; J1100; J1885

== ENCOUNTER 2023-06-12 08:49 | Inpatient (IN) | payer MEDICAID, SELFPAY ==
[2023-05-16 15:53] VITALS: BP 119/71; BMI 20.1
[2023-06-12 08:49] VITALS: BMI 21.7
[2023-06-12 08:53] VITALS: BP 129/90; PULSE 104; RESP 16; TEMP 37; O2SAT 99
--- NOTE | 2023-06-12 09:00 | PC.NURSE ---
Patient has been dressed out of regular clothes and placed in green paper scrubs. All belongings removed, placed in labeled bag, and set in filing cabinet by room. PSA present with patient at this time.
--- NOTE | 2023-06-12 09:12 | ED.C_ITS ---
HPI - Psych 2 General: Chief Complaint: Psychiatric Symptoms Stated Complaint: SI Time Seen by Provider: 06/12/23 08:50 History of Present Illness: 57-year-old female who presents the [facility] room by ambulance after police were called to her home for domestic and she told the police and EMS that she was suicidal. She does not tell me that she has a specific plan. She seems somewhat agitated. History does report she has some history of depression and psychiatric issues. Review of Systems 2 Narrative: Constitutional symptoms: Negative except as documented in HPI. Skin symptoms: Negative except as documented in HPI. Eye symptoms: Negative except as documented in HPI. ENMT symptoms: Negative except as documented in HPI. Respiratory symptoms: Negative except as documented in HPI. Cardiovascular symptoms: Negative except as documented in HPI. Gastrointestinal symptoms: Negative except as documented in HPI. Genitourinary symptoms: Negative except as documented in HPI. Musculoskeletal symptoms: Negative except as documented in HPI. Neurologic symptoms: Negative except as documented in HPI. Psychiatric symptoms: Negative except as documented in HPI. Endocrine symptoms: Negative except as documented in HPI. PFSH ED 2 PFSH: Medical History [place] (hard of hearing) No pertinent past medical history Neghx: htn,dm,dvt/pe PCP: Dr. Alexandra Fibromyalgia Lumbar post-laminectomy syndrome Psychiatric care Lumbar spondylosis Lumbar disc disease Depression Hypothyroidism Surgical History Hx of colonoscopy x3 History of surgery on arm left forearm and right shoulder H/O tubal ligation History of lumbar surgery Family History Grandmother No problems noted. Grandfather No problems noted. Father Diabetes Hyperchloremia Mother Diabetes Stroke Thyroid disease Hyperchloremia Hypertension Family/Other Breast cancer Paternal aunt Sister Thyroid disease Other Ovarian cancer Denies family history of Colon cancer Heart disease Uterine cancer Social History (Updated 05/12/23 @ 15:12 by Dorothy Mcintyre RN) Smoking and tobacco/nicotine status: current every day tobacco/nicotine user cigarettes Packs smoked per day: 1 Years cigarettes smoked: 40 Quit status (tobacco/nicotine): not considering quitting Second hand smoke exposure: Yes Alcohol intake: former Year of sobriety/quit date alcohol: 2021 Former alcohol use details: quit 3 months ago Substance/Drug Use: current Substance/Drug use frequency: Special occassions/opportunity only 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 service: No Current occupational status: unemployed Current occupational exposures/hazards: No Pets and animals: No Leisure activites: other Leisure activities details: play with [employer] Sexually active: No Do you think of yourself as: Straight/Heterosexual Current gender identity: Female Rubi/Yarsani: Shinto Special rubi needs: No Agree to transfusion: Yes Female Reproductive History: Para: 3 Spontaneous abortions: Yes Physical Exam 2 Narrative: EXAM NARRATIVE: General: Alert, no acute distress. Skin: Warm, dry. Head: Normocephalic, atraumatic. Neck: Supple, trachea midline. Eye: Extraocular movements are intact. Ears, nose, mouth and throat: mucosa moist. Cardiovascular: Regular, Normal peripheral perfusion. Respiratory: Lungs are clear to auscultation, respirations are non-labored, breath sounds are equal, Symmetrical chest wall expansion. Gastrointestinal: Soft, Nontender, Non distended, Normal bowel sounds. Musculoskeletal: Normal ROM, no deformity. Neurological: Alert and oriented, No focal neurological deficit observed. Psychiatric: Cooperative, patient seems a bit agitated. When I ask her if she is suicidal or wants to hurt herself she is vague but does not deny this. EMS and police report that she did states she was suicidal Course 2 Vital Signs: Vital signs: Vital Signs Temperature 98.6 F 06/12/23 08:53 Pulse Rate 104 H 06/12/23 08:53 Respiratory Rate 16 06/12/23 08:53 Blood Pressure 129/90 06/12/23 08:53 Pulse Oximetry 99 06/12/23 08:53 Oxygen Delivery Me thod Room Air 06/12/23 08:53 MDM - Psych Medical Decision Making Patient with reported depression and suicidal ideation. concerns for infection, alcohol intoxication, cardiac issues or other medical problems prior to psychiatric admission. - Workup: labwork, ekg ordered to evaluate the pathologies and to clear the patient medically prior to psychiatric admission EK:12 AM rate 79 normal sinus rhythm, No ST-T changes, PVCs,, normal TX & QRS intervals, This was reviewed and interpreted by myself the ER physician at 9:18 AM. Lab Data 06/12/23 09:47 06/12/23 09:47 Laboratory Results WBC 7.71 10^3/uL (3.29-11.43) 06/12/23 09:47 RBC 4.05 10^6/uL (3.85-5.65) 06/12/23 09:47 Hgb 12.90 g/dL (11.27-16.99) 06/12/23 09:47 Hct 40.2 % (36-47) 06/12/23 09:47 MCV 99.3 fl (85-98) H 06/12/23 09:47 MCH 31.9 pg (27-33) 06/12/23 09:47 MCHC 32.1 g/dL (30-55) 06/12/23 09:47 RDW 12.8 % (12.1-15.1) 06/12/23 09:47 Plt Count 364 10^3/cmm (157-399) 06/12/23 09:47 MPV 9.3 fL (7.4-10.4) 06/12/23 09:47 Neut % (Auto) 53.0 % 06/12/23 09:47 Lymph % (Auto) 36.2 % 06/12/23 09:47 Pratt % (Auto) 5.6 % 06/12/23 09:47 Eos % (Auto) 2.7 % 06/12/23 09:47 Baso % (Auto) 1.2 % 06/12/23 09:47 Neut # (Auto) 4.09 10^3/uL (1.8-7.7) 06/12/23 09:47 Lymph # (Auto) 2.8 10^3/uL (0.8-4.8) 06/12/23 09:47 Pratt # (Auto) 0.4 10^3/uL (0.2-0.9) 06/12/23 09:47 Eos # (Auto) 0.2 10^3/uL (0.0-0.8) 06/12/23 09:47 Baso # (Auto) 0.1 10^3/uL (0.0-0.1) 06/12/23 09:47 Nucleated RBC % (auto) 0 % 06/12/23 09:47 Nucleated RBCs # 0.0 /100WBC 06/12/23 09:47 Sodium 140 mmol/L (136-145) 06/12/23 09:47 Potassium 4.3 mmol/L (3.5-5.1) 06/12/23 09:47 Chloride 105 mmol/L (98-107) 06/12/23 09:47 Carbon Dioxide 25 mmol/L (22-29) 06/12/23 09:47 Anion Gap 14.3 (5-19) 06/12/23 09:47 BUN 15 mg/dL (6-20) 06/12/23 09:47 Creatinine 0.6 mg/dL (0.5-0.9) 06/12/23 09:47 GFR Calculation 103.8 mL/min (90-130) 06/12/23 09:47 Glucose 92 mg/dL (65-115) 06/12/23 09:47 Calculated Osmolality 290 mOsm/kg (285-295) 06/12/23 09:47 Calcium 9.6 mg/dL (8.5-10.5) 06/12/23 09:47 Total Bilirubin 0.4 mg/dL (0.15-1.2) 06/12/23 09:47 AST 15 U/L (0-32) 06/12/23 09:47 ALT 12 U/L (0-33) 06/12/23 09:47 Alkaline Phosphatase 92 U/L (35-105) 06/12/23 09:47 Total Protein 6.9 g/dL (6.6-8.7) 06/12/23 09:47 Albumin 4.0 g/dL (3.5-5.2) 06/12/23 09:47 Globulin 2.9 g/dL (1.3-4.6) 06/12/23 09:47 Urine Color Yellow (Yellow) 06/12/23 09:07 Urine Appearance Hazy (CLEAR) A 06/12/23 09:07 Urine pH 6 (5-7) 06/12/23 09:07 Ur Specific [place] 1.025 (1.005-1.030) 06/12/23 09:07 Urine Protein Neg (Negative) 06/12/23 09:07 Urine Glucose (UA) Norm (Normal) 06/12/23 09:07 Urine Ketones Negative (Negative) 06/12/23 09:07 Urine Blood Neg (Negative) 06/12/23 09:07 Urine Nitrate Negative (Negative) 06/12/23 09:07 Urine Bilirubin Neg (Negative) 06/12/23 09:07 Urine Urobilinogen Norm mg/dL (Negative) 06/12/23 09:07 Ur Leukocyte Esterase Negative (Negative) 06/12/23 09:07 Urine RBC 0-4 /hpf (0-2) H 06/12/23 09:07 Urine WBC Rare /hpf (0-5) 06/12/23 09:07 Ur Squamous Epith Cells 5-10 /hpf (0-5) H 06/12/23 09:07 Amorphous Sediment Not Reportable 06/12/23 09:07 Urine Bacteria Trace /hpf (NONE) 06/12/23 09:07 Urine Mucus 1+ /hpf 06/12/23 09:07 Salicylates < 0.3 mg/dL (3-10) L 06/12/23 09:47 Urine Opiates Screen Negative ng/mL (Negative) 06/12/23 09:07 Acetaminophen < 5.0 ug/mL (10-30) L 06/12/23 09:47 Ur Barbiturates Screen Negative ng/mL (Negative) 06/12/23 09:07 Ur Phencyclidine Scrn Negative ng/mL (Negative) 06/12/23 09:07 Ur Amphetamines Screen Negative ng/mL (Negative) 06/12/23 09:07 U Benzodiazepines Scrn Negative ng/mL (Negative) 06/12/23 09:07 Urine Cocaine Screen Negative ng/mL (Negative) 06/12/23 09:07 U Marijuana (THC) Screen Positive ng/mL (Negative) H 06/12/23 09:07 No radiology studies performed this visit Other Data Assessment and plan: - Medically cleared. - EKG shows no ischemic changes. - Blood alcohol level is negative, as well as salicylate and Tylenol. - Drug screen is negative except for marijuana - No signs of infection, urinalysis clear and white count is not elevated - No anemia. - BUN and creatinine are within normal limits. - accepted by Dr. Dawson with psychiatry - admit to psychiatric facility for continued evaluation and treatment. - All imaging and lab work were reviewed and interpreted personally by myself, the ER physician - Evaluation and treatment of this problem were appropriate in the emergency setting Discharge Plan Discharge Patient Disposition: Admitted As Inpatient Clinical Impression: Depression with suicidal ideation Condition: Stable Coding Level of Care Code ED Hand Drawer In Helper for Remington Parada
--- NOTE | 2023-06-12 09:12 | ECG_ITS ---
[facility] Test Date: 2023-06-12 Pat Name: Arcelia Patterson Department: Room: Gender: Female Head Loader: : 1965 Requested By: Merline Ward Order Number: [id number] Malena MD: Reji Frazier M.D. Measurements Intervals [place] Rate: 79 P: 79 NE: 147 QRS: 64 QRSD: 94 T: 68 QT: 368 QTc: 423 Interpretive Statements SINUS RHYTHM WITH OCCASIONAL VENTRICULAR PREMATURE COMPLEXES INCOMPLETE RIGHT BUNDLE BRANCH BLOCK [90+ ms QRS DURATION, TERMINAL R IN V1/V2, 40+ ms S IN I/aVL/V4/V5/V6] Compared to ECG 10/02/2021 20:37:17 Ventricular premature complex(es) now present Incomplete right bundle-branch block now present Electronically Signed On 06-12-2023 9:46:30 CDT by Reji Frazier M.D. [email or web address]
[2023-06-12 09:43] LABS: Bilirubin Urine Neg (Negative); Blood Urine Neg (Negative); Glucose Urine UA Norm (Normal); Ketones Urine Negative (Negative); Leukocyte Esterase Urine Negative (Negative); Nitrate Urine Negative (Negative); Protein Urine Neg (Negative); Specific Gravity, Urine 1.025 (1.005-1.030); Urine Appearance Hazy (CLEAR); Urine Color Yellow (Yellow); Urobilinogen Urine Norm (Negative); pH Urine 6 (5-7)
[2023-06-12 09:52] LABS: Basophils # 0.1 10^3/uL (0.0-0.1); Basophils % 1.2 %; Eosinophils # 0.2 10^3/uL (0.0-0.8); Eosinophils % 2.7 %; Hematocrit 40.2 % (36-47); Lymphocytes # 2.8 10^3/uL (0.8-4.8); Lymphocytes % 36.2 %; Mean Corpuscular HGB Conc 32.1 g/dL (30-55); Mean Corpuscular Hemoglobin 31.9 pg (27-33); Mean Corpuscular Volume 99.3 fl (85-98); Mean Platelet Volume 9.3 fL (7.4-10.4); Monocytes # 0.4 10^3/uL (0.2-0.9); Monocytes % 5.6 %; Neutrophils # 4.09 10^3/uL (1.8-7.7); Nucleated Red Blood Cells % 0 %; Platelet Count 364 10^3/cmm (157-399); Red Blood Count 4.05 10^6/uL (3.85-5.65); Red Cell Distribution Width 12.8 % (12.1-15.1); White Blood Count 7.71 10^3/uL (3.29-11.43)
[2023-06-12 09:53] LABS: Amphetamines Screen Urine Negative (Negative); Barbiturates Screen Urine Negative (Negative); Benzodiazepines Screen Urine Negative (Negative); Cocaine Screen Urine Negative (Negative); Opiate Screen Urine Negative (Negative); PCP Screen Urine Negative (Negative); THC Screen Urine Positive (Negative)
[2023-06-12 10:02] LABS: Add Urine Culture? No; Bacteria Urine TRACE /hpf; Mucus Urine 1+ /hpf; RBC Urine 0-4 /hpf (0-2); WBC Urine RARE /hpf (0-5)
[2023-06-12 10:12] LABS: Alanine Aminotransferase 12 U/L (0-33); Alkaline Phosphatase 92 U/L (35-105); Anion Gap 14.3 (5-19); Aspartate Amino Transferase 15 U/L (0-32); Blood Urea Nitrogen 15 mg/dL (6-20); Calcium 9.6 mg/dL (8.5-10.5); Carbon Dioxide 25 mmol/L (22-29); Chloride 105 mmol/L (98-107); Globulin 2.9 g/dL (1.3-4.6); Glomerular Filtration Rate 103.8 mL/min (90-130); Glucose 92 mg/dL (65-115); Osmolality Calculated 290 mOsm/kg (285-295); Potassium 4.3 mmol/L (3.5-5.1); Sodium 140 mmol/L (136-145); Total Bilirubin 0.4 mg/dL (0.15-1.2); Total Protein 6.9 g/dL (6.6-8.7)
[2023-06-12 10:22] LABS: Acetaminophen < 5.0 ug/mL (10-30); Salicylate < 0.3 mg/dL (3-10)
[2023-06-12] MEDS: ibuprofen 600 mg Tablet PO ×3 (10:34→21:33)
--- NOTE | 2023-06-12 10:51 | PC.NURSE ---
Report called to Kayleigh in NPU. All questions and concerns addressed at time of report.
[2023-06-12 11:13] VITALS: BP 152/87; PULSE 86; RESP 18; TEMP 36.6; O2SAT 98
[2023-06-12] MEDS: acetaminophen 325 mg Tablet 650 MG PO ×2 (13:24→17:35)
[2023-06-12 13:59] VITALS: BP 130/72; PULSE 88; RESP 20; TEMP 36.6; O2SAT 97
[2023-06-12] MEDS: gabapentin 400 mg Capsule PO ×2 (16:24→20:40)
[2023-06-12] MEDS: docusate sodium 100 mg Capsule PO (17:18)
[2023-06-12 19:38] VITALS: BP 119/87; PULSE 92; RESP 17; TEMP 36.3; O2SAT 100
[2023-06-12] MEDS: atorvastatin 40 mg Tablet 20 MG PO (20:40)
[2023-06-12] MEDS: trazodone 50 mg Tablet 100 MG PO (20:40)
[2023-06-12] MEDS: OLANZapine 5 mg ODT PO (22:38)
[2023-06-13] MEDS: acetaminophen 325 mg Tablet 650 MG PO ×2 (01:32→11:57)
[2023-06-13] MEDS: haloperidol 5 mg Tablet PO (01:33)
[2023-06-13] MEDS: diphenhydrAMINE 50 mg Capsule PO (01:33)
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
[2023-06-13] MEDS: ibuprofen 600 mg Tablet PO (07:25)
[2023-06-13] MEDS: fluoxetine 20 mg Capsule 40 MG PO (07:25)
[2023-06-13] MEDS: gabapentin 400 mg Capsule PO ×3 (07:26→20:37)
[2023-06-13] MEDS: mirtazapine 15 mg Tablet PO (07:26)
[2023-06-13] MEDS: docusate sodium 100 mg Capsule PO ×2 (07:26→17:26)
[2023-06-13] MEDS: amitriptyline 25 mg Tablet 50 MG PO (07:26)
[2023-06-13] MEDS: levothyroxine 112 mcg Tablet PO (07:27)
[2023-06-13] MEDS: famotidine 20 mg Tablet 40 MG PO (11:57)
[2023-06-13 14:00] VITALS: BP 134/84; PULSE 83; RESP 16; TEMP 36.6; O2SAT 97
[2023-06-13] MEDS: paliperidone ER 3 mg Tablet PO (15:51)
[2023-06-13 20:10] VITALS: BP 115/75; PULSE 92; RESP 17; TEMP 35; O2SAT 98
[2023-06-13] MEDS: atorvastatin 40 mg Tablet 20 MG PO (20:37)
[2023-06-13] MEDS: trazodone 50 mg Tablet 100 MG PO (20:37)
[2023-06-14] MEDS: ibuprofen 600 mg Tablet PO ×2 (00:43→14:42)
[2023-06-14 06:00] VITALS: RESP 16
[2023-06-14] MEDS: mirtazapine 15 mg Tablet PO (08:32)
[2023-06-14] MEDS: docusate sodium 100 mg Capsule PO ×2 (08:32→17:38)
[2023-06-14] MEDS: paliperidone ER 3 mg Tablet PO (08:32)
[2023-06-14] MEDS: amitriptyline 25 mg Tablet 50 MG PO (08:32)
[2023-06-14] MEDS: fluoxetine 20 mg Capsule 40 MG PO (08:32)
[2023-06-14] MEDS: gabapentin 400 mg Capsule PO ×3 (08:32→20:22)
[2023-06-14] MEDS: acetaminophen 325 mg Tablet 650 MG PO ×2 (09:31→20:41)
[2023-06-14] MEDS: levothyroxine 112 mcg Tablet PO (09:33)
--- NOTE | 2023-06-14 11:48 | P.NPUPN_ITS ---
Subjective NPU 2 Subjective: Patient presented today reporting that she is doing okay she guesses. She was very focused on orders of protection that she had in her hands that were reportedly related to her daughter and granddaughter. She was very flustered about that issue. She denied any problems with the Invega thus far. We discussed the risks, benefits and alternatives of increasing the dose to 6 mg p.o. daily and she understood and agreed to proceed as is documented in this note. She denied side effects to the medication. Mental Status Exam 2 MSE Comments: This is an overweight white female in hospital scrubs with limited grooming and but adequate eye contact. No abnormal movements except for mild psychomotor agitation. She is hard of hearing requiring clear and directed speech. Cooperative with exam in mild to moderate distress. Speech was slightly decreased rate and volume. Mood described as depressed and overwhelmed, affect is congruent and anxious.? Thought process: linear and logical.?Thought content: patient denies homicidal ideation, no delusions reported or noted and did not appear to be attending to internal stimuli. Suicidal thoughts present, no thoughts of violence or aggression against others, possible auditory hallucinations ( Mom, Mom ), paranoia, mood swings, forgetfulness, restlessness, irritability. She denied visual hallucinations. Attention and concentration: intact.??Memory appeared mostly reliable. She is alert and oriented times 3. ? Insight and judgment limited. ? Impulse control is impaired. Vitals/I&O/Wt Last Vital Signs Temp 95.0 F L 06/13/23 20:10 Pulse 92 06/13/23 20:10 Resp 16 06/14/23 06:00 BP 115/75 06/13/23 20:10 Pulse Ox 98 06/13/23 20:10 O2 Del Method Room Air 06/13/23 20:10 Data NPU 06/12/23 09:47 06/12/23 09:47 A&P Assessment and plan (1) Panic attacks: (2) Major depressive disorder: Qualifiers: Major depression recurrence: recurrent Active/Remission status: c urrently active Major depression episode severity: mild Qualified Code(s): F 33.0 - Major depressive disorder, recurrent, mild (3) Depression with suicidal ideation: (4) Suicidal ideation: Plan This is a 56 year old white female with a history of chronic pain and a long history of major depressive disorder, who presents overwhelmed by multiple stressors including loss of personal items, multiple appointments, family issues, and fear of mental illness diagnosis. She has a history of mental health issues and substance use. She is currently experiencing suicidal thoughts, mood swings, possible auditory hallucinations, and paranoia. 1. We will attempt to gather collateral information including outpatient records. 2. Continue current medications. Started Invega 3 mg p.o. daily. Will increase to 6 mg p.o. daily. 3. Encourage individual, group and milieu therapy 4. Continue q-15 minute check for safety 5. Recommend sober living treatment at the highest level of care to which the patient is willing to commit. 6. Contact outpatient team about treatment. Involuntary Hold Information 2 96 Hour Hold: 96 Hour Involuntary Admission: No Attestations NPU 2 Medical Necessity Statement*: Inpatient psychiatric hospitalization is medically necessary and the clinically appropriate intervention at this time. We will monitor/initiate medications and make changes as indicated. Likely length of stay 3-5 days. Coding Level of Care Code Acute Code for [facility] Diagnoses Panic attacks F41.0 Mild episode of recurrent major depressive disorder F33.0 Major depression recurrence: recurrent Active/Remission status: currently active Major depression episode severity: mild Depression with suicidal ideation F32.A; R45.851 Suicidal ideation R45.851
[2023-06-14 14:00] VITALS: BP 125/83; PULSE 100; RESP 16; TEMP 36.3; O2SAT 97
[2023-06-14 15:05] VITALS: PULSE 94; RESP 16; O2SAT 98
[2023-06-14] MEDS: famotidine 20 mg Tablet PO (17:55)
[2023-06-14 19:30] VITALS: BP 102/67; PULSE 101; RESP 17; TEMP 36.4; O2SAT 97
[2023-06-14] MEDS: trazodone 50 mg Tablet 100 MG PO (20:22)
[2023-06-14] MEDS: atorvastatin 40 mg Tablet 20 MG PO (20:22)
[2023-06-15] MEDS: ibuprofen 600 mg Tablet PO (05:13)
[2023-06-15 06:00] VITALS: BP 121/85; PULSE 100; RESP 18; TEMP 36.4; O2SAT 95
[2023-06-15] MEDS: hyDROXYzine 25 mg Capsule 50 MG PO (07:37)
[2023-06-15] MEDS: acetaminophen 325 mg Tablet 650 MG PO (07:38)
[2023-06-15] MEDS: polyethylene glycol 3350 Pkt 17 gm PO (08:17)
[2023-06-15] MEDS: mirtazapine 15 mg Tablet PO (08:19)
[2023-06-15] MEDS: fluoxetine 20 mg Capsule 40 MG PO (08:19)
[2023-06-15] MEDS: gabapentin 400 mg Capsule PO ×3 (08:19→20:12)
[2023-06-15] MEDS: famotidine 20 mg Tablet PO ×2 (08:19→17:34)
[2023-06-15] MEDS: amitriptyline 25 mg Tablet 50 MG PO (08:19)
[2023-06-15] MEDS: paliperidone ER 6 mg Tablet PO (08:19)
[2023-06-15] MEDS: docusate sodium 100 mg Capsule PO ×2 (08:19→17:34)
[2023-06-15] MEDS: levothyroxine 112 mcg Tablet PO (09:18)
--- NOTE | 2023-06-15 11:50 | W.PM.NPUPNS ---
Subjective NPU Subjective: Patient presented today reporting that she is feeling a little better. Staff reports decreased kinetic activity which is also clear on direct observation. She continued to focus somewhat on her daughter in situ related to her daughter and her granddaughter but we continue to discuss the importance of her sobriety and adherence to the medication. She denied any side effects to the medication. Mental Status Exam MSE Comments: This is an overweight white female in hospital scrubs with limited grooming and but adequate eye contact. No abnormal movements except for mild psychomotor agitation. She is hard of hearing requiring clear and directed speech. Cooperative with exam in mild to moderate distress. Speech was slightly decreased rate and volume. Mood described as depressed and overwhelmed, affect is congruent and anxious.? Thought process: linear and logical.?Thought content: patient denies homicidal ideation, no delusions reported or noted and did not appear to be attending to internal stimuli. Suicidal thoughts present, no thoughts of violence or aggression against others, possible auditory hallucinations ( Mom, Mom ), paranoia, mood swings, forgetfulness, restlessness, irritability. She denied visual hallucinations. Attention and concentration: intact.??Memory appeared mostly reliable. She is alert and oriented times 3. ? Insight and judgment limited. ? Impulse control is impaired. Vitals/I&O/Wt Last Vital Signs Temp 97.5 F L 06/15/23 06:00 Pulse 100 06/15/23 06:00 Resp 18 06/15/23 06:00 BP 121/85 06/15/23 06:00 Pulse Ox 95 06/15/23 06:00 O2 Del Method Room Air 06/15/23 06:00 Weight last 48 hrs Weight 62.414 kg Data NPU 06/12/23 09:47 06/12/23 09:47 A&P Assessment and plan (1) Panic attacks: (2) Major depressive disorder: Qualifiers: Major depression recurrence: recurrent Active/Remission status: currently active Major depression episode severity: mild Qualified Code(s): F33.0 - Major depressive disorder, recurrent, mild (3) Depression with suicidal ideation: (4) Suicidal ideation: Plan This is a 56 year old white female with a history of chronic pain and a long history of major depressive disorder, who presents overwhelmed by multiple stressors including loss of personal items, multiple appointments, family issues, and fear of mental illness diagnosis. She has a history of mental health issues and substance use. She is currently experiencing suicidal thoughts, mood swings, possible auditory hallucinations, and paranoia. 1. We will attempt to gather collateral information including outpatient records. 2. Continue current medications. Started Invega 3 mg p.o. daily. Increased to 6 mg p.o. daily. 3. Encourage individual, group and milieu therapy 4. Continue q-15 minute check for safety 5. Recommend sober living treatment at the highest level of care to which the patient is willing to commit. 6. Contact outpatient team about treatment. Involuntary Hold Information 96 Hour Hold: 96 Hour Involuntary Admission: No Attestations NPU Medical Necessity Statement*: Inpatient psychiatric hospitalization is medically necessary and the clinically appropriate intervention at this time. We will monitor/initiate medications and make changes as indicated. Likely length of stay 2-4 days. Coding Level of Care Code Acute Code for [facility] Fwd Diagnoses Panic attacks F41.0 Mild episode of recurrent major depressive disorder F33.0 Major depression recurrence: recurrent Active/Remission status: currently active Major depression episode severity: mild Depression with suicidal ideation F32.A; R45.851 Suicidal ideation R45.851
[2023-06-15 14:00] VITALS: BP 130/89; PULSE 111; RESP 16; TEMP 36.7; O2SAT 99
[2023-06-15] MEDS: atorvastatin 40 mg Tablet 20 MG PO (20:12)
[2023-06-15] MEDS: trazodone 50 mg Tablet 100 MG PO (20:12)
[2023-06-15 20:39] VITALS: BP 118/79; PULSE 100; RESP 17; TEMP 36.4; O2SAT 97
[2023-06-16] MEDS: ibuprofen 600 mg Tablet PO ×3 (01:32→20:30)
[2023-06-16] MEDS: acetaminophen 325 mg Tablet 650 MG PO (04:30)
[2023-06-16] MEDS: levothyroxine 112 mcg Tablet PO (05:22)
[2023-06-16] MEDS: polyethylene glycol 3350 Pkt 17 gm PO (05:22)
[2023-06-16 06:00] VITALS: BP 133/86; PULSE 89; RESP 18; O2SAT 97
[2023-06-16] MEDS: paliperidone ER 6 mg Tablet PO (08:03)
[2023-06-16] MEDS: gabapentin 400 mg Capsule PO ×3 (08:03→20:31)
[2023-06-16] MEDS: docusate sodium 100 mg Capsule PO ×2 (08:04→18:37)
[2023-06-16] MEDS: famotidine 20 mg Tablet PO ×2 (08:04→18:37)
[2023-06-16] MEDS: fluoxetine 20 mg Capsule 40 MG PO (08:04)
[2023-06-16] MEDS: amitriptyline 25 mg Tablet 50 MG PO (08:04)
[2023-06-16] MEDS: mirtazapine 15 mg Tablet PO (08:19)
[2023-06-16 14:00] VITALS: BP 122/78; PULSE 103; RESP 16; TEMP 36.7; O2SAT 98
--- NOTE | 2023-06-16 18:10 | P.NPUPN_ITS ---
Subjective NPU 2 Subjective: Patient today reporting that he is doing a little better. She reports she is tolerating the Invega increase and denied any side effects to the medication. We continue to discuss her sobriety is well as the possibility of switching over to the long-acting injectable. Mental Status Exam 2 MSE Comments: This is an overweight white female in hospital scrubs with limited grooming and but adequate eye contact. No abnormal movements except for mild psychomotor agitation. She is hard of hearing requiring clear and directed speech. Cooperative with exam in mild to moderate distress. Speech was slightly decreased rate and volume. Mood described as depressed and overwhelmed, affect is congruent and anxious.? Thought process: linear and logical.?Thought content: patient denies homicidal ideation, no delusions reported or noted and did not appear to be attending to internal stimuli. Suicidal thoughts present, no thoughts of violence or aggression against others, possible auditory hallucinations ( Mom, Mom ), paranoia, mood swings, forgetfulness, restlessness, irritability. She denied visual hallucinations. Attention and concentration: intact.??Memory appeared mostly reliable. She is alert and oriented times 3. ? Insight and judgment limited. ? Impulse control is impaired. Vitals/I&O/Wt Last Vital Signs Temp 98.1 F 06/16/23 14:00 Pulse 103 H 06/16/23 14:00 Resp 16 06/16/23 14:00 BP 122/78 06/16/23 14:00 Pulse Ox 98 06/16/23 14:00 O2 Del Method Room Air 06/16/23 14:00 Weight last 48 hrs Weight 62.414 kg Data NPU 06/12/23 09:47 06/12/23 09:47 A&P Assessment and plan (1) Panic attacks: (2) Major depressive disorder: Qualifiers: Major depression recurrence: recurrent Active/Remission status: c urrently active Major depression episode severity: mild Qualified Code(s): F 33.0 - Major depressive disorder, recurrent, mild (3) Depression with suicidal ideation: (4) Suicidal ideation: Plan This is a 56 year old white female with a history of chronic pain and a long history of major depressive disorder, who presents overwhelmed by multiple stressors including loss of personal items, multiple appointments, family issues, and fear of mental illness diagnosis. She has a history of mental health issues and substance use. She is currently experiencing suicidal thoughts, mood swings, possible auditory hallucinations, and paranoia. 1. We will attempt to gather collateral information including outpatient records. 2. Continue current medications. Started Invega 3 mg p.o. daily. Increased to 6 mg p.o. daily. 3. Encourage individual, group and milieu therapy 4. Continue q-15 minute check for safety 5. Recommend sober living treatment at the highest level of care to which the patient is willing to commit. 6. Contact outpatient team about treatment. Involuntary Hold Information 2 96 Hour Hold: 96 Hour Involuntary Admission: No Attestations NPU 2 Medical Necessity Statement*: Inpatient psychiatric hospitalization is medically necessary and the clinically appropriate intervention at this time. We will monitor/initiate medications and make changes as indicated. Likely length of stay 1-3 days. Coding Level of Care Code Acute Code for [facility] Fwd Diagnoses Panic attacks F41.0 Mild episode of recurrent major depressive disorder F33.0 Major depression recurrence: recurrent Active/Remission status: currently active Major depression episode severity: mild Depression with suicidal ideation F32.A; R45.851 Suicidal ideation R45.851
[2023-06-16] MEDS: trazodone 50 mg Tablet 100 MG PO (20:31)
[2023-06-16] MEDS: atorvastatin 40 mg Tablet 20 MG PO (20:31)
[2023-06-16 21:55] VITALS: BP 121/83; PULSE 99; RESP 17; TEMP 36.3; O2SAT 98
[2023-06-17] MEDS: ibuprofen 600 mg Tablet PO ×2 (03:06→13:30)
[2023-06-17 06:00] VITALS: BP 146/96; PULSE 93; RESP 16; TEMP 36.7; O2SAT 98
[2023-06-17] MEDS: acetaminophen 325 mg Tablet 650 MG PO ×2 (06:42→20:56)
[2023-06-17] MEDS: paliperidone ER 6 mg Tablet PO (08:18)
[2023-06-17] MEDS: mirtazapine 15 mg Tablet PO (08:18)
[2023-06-17] MEDS: levothyroxine 112 mcg Tablet PO (08:18)
[2023-06-17] MEDS: amitriptyline 25 mg Tablet 50 MG PO (08:18)
[2023-06-17] MEDS: fluoxetine 20 mg Capsule 40 MG PO (08:18)
[2023-06-17] MEDS: gabapentin 400 mg Capsule PO ×3 (08:19→20:56)
[2023-06-17] MEDS: famotidine 20 mg Tablet PO ×2 (08:19→17:08)
[2023-06-17] MEDS: docusate sodium 100 mg Capsule PO ×2 (08:19→17:08)
--- NOTE | 2023-06-17 09:40 | PC.NURSE ---
AT AROUND 0900 STAFF PERFORMED RANDOM ROOM CHECKS FOR CONTRABAND. DURING THIS RANDOM CHECK NO CONTRABAND WAS FOUND IN PT ROOM. PT WAS COOPERATIVE WITH CHECK.
[2023-06-17 14:00] VITALS: BP 125/74; PULSE 68; RESP 16; TEMP 36.9; O2SAT 98
--- NOTE | 2023-06-17 14:50 | W.PM.NPUPNS ---
Subjective NPU Subjective: Patient presents today reporting that she is starting to feel better and that she is making arrangements for going home and the logistics of her daughter being at her home when there is a protective order against her. She discussed having a plan for her rent being paid moving forward and that she worked with the social work team on those concerns. We discussed the possibility of switching over to the Invega Sustenna for adherence purposes. She denied any side effects to the medication. Mental Status Exam MSE Comments: This is an overweight white female in hospital scrubs with limited grooming and but adequate eye contact. No abnormal movements except for mild psychomotor agitation. She is hard of hearing requiring clear and directed speech. Cooperative with exam in mild to moderate distress. Speech was slightly decreased rate and volume. Mood described as depressed and overwhelmed, affect is congruent and anxious.? Thought process: linear and logical.?Thought content: patient denies homicidal ideation, no delusions reported or noted and did not appear to be attending to internal stimuli. Suicidal thoughts present, no thoughts of violence or aggression against others, possible auditory hallucinations ( Mom, Mom ), paranoia, mood swings, forgetfulness, restlessness, irritability. She denied visual hallucinations. Attention and concentration: intact.??Memory appeared mostly reliable. She is alert and oriented times 3. ? Insight and judgment limited. ? Impulse control is impaired. Vitals/I&O/Wt Last Vital Signs Temp 98.5 F 06/17/23 14:00 Pulse 68 06/17/23 14:00 Resp 16 06/17/23 14:00 BP 125/74 06/17/23 14:00 Pulse Ox 98 06/17/23 14:00 O2 Del Method Room Air 06/17/23 14:00 Data NPU 06/12/23 09:47 06/12/23 09:47 A&P Assessment and plan (1) Panic attacks: (2) Major depressive disorder: Qualifiers: Major depression recurrence: recurrent Active/Remission status: currently active Major depression episode severity: mild Qualified Code(s): F33.0 - Major depressive disorder, recurrent, mild (3) Depression with suicidal ideation: (4) Suicidal ideation: Plan This is a 56 year old white female with a history of chronic pain and a long history of major depressive disorder, who presents overwhelmed by multiple stressors including loss of personal items, multiple appointments, family issues, and fear of mental illness diagnosis. She has a history of mental health issues and substance use. She is currently experiencing suicidal thoughts, mood swings, possible auditory hallucinations, and paranoia. 1. We will attempt to gather collateral information including outpatient records. 2. Continue current medications. Started Invega 3 mg p.o. daily. Increased to 6 mg p.o. daily. Consider Invega Sustenna before discharge. 3. Encourage individual, group and milieu therapy 4. Continue q-15 minute check for safety 5. Recommend sober living treatment at the highest level of care to which the patient is willing to commit. 6. Contact outpatient team about treatment. Involuntary Hold Information 96 Hour Hold: 96 Hour Involuntary Admission: No Attestations NPU Medical Necessity Statement*: Inpatient psychiatric hospitalization is medically necessary and the clinically appropriate intervention at this time. We will monitor/initiate medications and make changes as indicated. Likely length of stay 1-3 days. Coding Level of Care Code Acute Code for [facility] Fwd Diagnoses Panic attacks F41.0 Mild episode of recurrent major depressive disorder F33.0 Major depression recurrence: recurrent Active/Remission status: currently active Major depression episode severity: mild Depression with suicidal ideation F32.A; R45.851 Suicidal ideation R45.851
[2023-06-17 20:07] VITALS: BP 131/83; PULSE 93; RESP 17; O2SAT 97
[2023-06-17] MEDS: hyDROXYzine 25 mg Capsule 50 MG PO (20:56)
[2023-06-17] MEDS: trazodone 50 mg Tablet 100 MG PO (20:56)
[2023-06-17] MEDS: atorvastatin 40 mg Tablet 20 MG PO (20:56)
[2023-06-18] MEDS: ibuprofen 600 mg Tablet PO ×2 (04:05→13:21)
[2023-06-18] MEDS: mirtazapine 15 mg Tablet PO (08:14)
[2023-06-18] MEDS: gabapentin 400 mg Capsule PO ×2 (08:15→15:38)
[2023-06-18] MEDS: famotidine 20 mg Tablet PO (08:15)
[2023-06-18] MEDS: fluoxetine 20 mg Capsule 40 MG PO (08:15)
[2023-06-18] MEDS: docusate sodium 100 mg Capsule PO (08:15)
[2023-06-18] MEDS: amitriptyline 25 mg Tablet 50 MG PO (08:15)
[2023-06-18] MEDS: paliperidone ER 6 mg Tablet PO (08:15)
[2023-06-18] MEDS: levothyroxine 112 mcg Tablet PO (08:15)
[2023-06-18] MEDS: acetaminophen 325 mg Tablet 650 MG PO (10:37)
[2023-06-18] MEDS: paliperidone palmitate 234 mg Syringe IM (11:02)
--- NOTE | 2023-06-18 11:04 | PC.NURSE ---
PT RECEIVED IM INVEGA 234MG INJECTION TO THE LEFT DELTOID. PT TOLERATED THIS WELL.
--- NOTE | 2023-06-18 13:47 | PC.NURSE ---
AT AROUND 1015 RANDOM ROOM CHECKS WERE PERFORMED BY STAFF. DURING THIS ROOM CHECK NO CONTRABAND WAS FOUND IN THIS PATIENT ROOM. PT WAS COOPERATIVE WITH ROOM CHECK.
[2023-06-18 14:00] VITALS: BP 123/57; PULSE 91; RESP 16; TEMP 36.3; O2SAT 96
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
[2023-06-18 14:44] VITALS: BP 131/83; PULSE 93; RESP 17; O2SAT 97
== END 2023-06-18 15:48 | disposition home or self-care (01) | DRG 885 ==
LOC: ER 10:29 → NP 11:11
PROVIDERS: Admitting Provider Psychiatry & Neurology Psychiatry; Emergency Provider Emergency Medicine; PCP Family Medicine; Visit Provider Psychiatry & Neurology Psychiatry
DX: F33.1 Major depressive disorder, recurrent, moderate (principal); R45.851 Suicidal ideations; F41.0 Panic disorder [episodic paroxysmal anxiety]; G89.29 Other chronic pain; Z63.79 Other stressful life events affecting family and household; F15.11 Other stimulant abuse, in remission
CPT/HCPCS: 36415; 80053; 80306; 80307; 81001; 85025; 93005; 96372; 97150; 97165; 99285; Q0163

== ENCOUNTER 2023-06-21 12:51 | Emergency (ER) | payer MEDICAID, SELFPAY ==
[2023-05-16 15:53] VITALS: BP 119/71; BMI 20.1
[2023-06-21 12:58] VITALS: BP 125/76; PULSE 95; RESP 16; TEMP 36.7; O2SAT 98; BMI 23.3
--- NOTE | 2023-06-21 13:23 | W.ED.GENADLT ---
HPI - General Adult General: Chief complaint: General Medical Stated complaint: right hip and leg, back&neck pain Time Seen by Provider: 06/21/23 13:23 Source: patient Mode of arrival: ambulatory Limitations: no limitations History of Present Illness: Patient is a 57-year-old female presents to ED today because of my chronic pain . Patient states she has a longstanding history of chronic neck and back pain as well as multiple joint pains. Patient states she was seen Fernando Ryan PA-C through Dr. Lind's office as well as her primary care doctor. She was doing physical therapy. At some point was scheduled for injections in my neck . Sounds like maybe she was seeing pain management at one point (?). States she lost her Medicaid and thus lost a lot of these services. States she was recently reinstated. She has upcoming appointment with primary care next week. When asked what I can provide for her today she responds just make me feel better . She states in the past she has been given IM steroids with good relief of her symptoms. Onset (ago): year(s) Location: neck, back and lower extremity Severity: moderate Pain Consistency: constant Relieving factors: none Exacerbating factors: none Associated symptoms: Reports no associated symptoms; Deny chest pain, dyspnea, headache(s), malaise, rash or vomiting Treatments prior to arrival: NSAID and other (Tylenol) Review of Systems Const: Denies: fever(s), chills, body aches, fatigue or malaise Card: Denies: chest pain Resp: Denies: dyspnea GI: Denies: abdominal pain, vomiting or diarrhea : Denies: flank pain, dysuria or hematuria Musc: Reports: neck pain, back pain, joint pain and other (all chronic/no new complaints today) Skin/Breast: Denies: rash Neuro: Denies: headache(s), numbness in extremities, weakness in extremities, sensory changes, difficulty walking or dizziness PFS ED PFSH: Medical History Depression with suicidal ideation [place] (hard of hearing) No pertinent past medical history Neghx: htn,dm,dvt/pe PCP: Dr. Alexandra Fibromyalgia Lumbar post-laminectomy syndrome Psychiatric care Lumbar spondylosis Lumbar disc disease Depression Hypothyroidism Surgical History Hx of colonoscopy x3 History of surgery on arm left forearm and right shoulder H/O tubal ligation History of lumbar surgery Family History Grandmother No problems noted. Grandfather No problems noted. Father Diabetes Hyperchloremia Mother Diabetes Stroke Thyroid disease Hyperchloremia Hypertension Family/Other Breast cancer Paternal aunt Sister Thyroid disease Other Ovarian cancer Denies family history of Colon cancer Heart disease Uterine cancer Social History Smoking and tobacco/nicotine status: current every day tobacco/nicotine user cigarettes Packs smoked per day: 1 Years cigarettes smoked: 40 Quit status (tobacco/nicotine): not considering quitting Second hand smoke exposure: Yes Alcohol intake: former Year of sobriety/quit date alcohol: 2021 Former alcohol use details: quit 3 months ago Substance/Drug Use: current Substance/Drug use frequency: Special occassions/opportunity only 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 service: No Current occupational status: unemployed Current occupational exposures/hazards: No Pets and animals: No Leisure activites: other Leisure activities details: play with [employer] Sexually active: No Do you think of yourself as: Straight/Heterosexual Current gender identity: Female Rubi/Bahai: Protestant Special rubi needs: No Agree to transfusion: Yes Female Reproductive History: Para: 3 Spontaneous abortions: Yes Physical Exam Const: COMMON NORMALS: no acute distress, patient oriented x3, no limitations and alert GENERAL APPEARANCE: cooperative ORIENTATION/CONSCIOUSNESS: Yes awake, Yes oriented to person, Yes oriented to place and Yes oriented to time Resp: COMMON NORMALS: normal respiratory effort and clear to auscultation bilaterally AUSCULTATION: clear to auscultation bilaterally Cardio: COMMON NORMALS: regular rate and regular rhythm RATE: regular rate RHYTHM: regular rhythm Neuro: COMMON NORMALS: patient oriented x3 SENSORIUM/ORIENTATION: Yes alert, Yes oriented to person, Yes oriented to place and Yes oriented to time Course Vital Signs: Vital signs: Vital Signs Temperature 98.0 F 06/21/23 12:58 Pulse Rate 96 06/21/23 13:28 Respiratory Rate 18 06/21/23 13:28 Blood Pressure 133/95 06/21/23 13:28 Pulse Oximetry 98 06/21/23 13:28 Oxygen Delivery Me thod Room Air 06/21/23 13:28 MDM - General Adult Medical Decision Making Patient has no acute complaints on today's visit. She states all of her discomforts are chronic. She does have primary care follow-up with Dr. Britt next week on 06/25. She is requesting IM steroids thus this was provided for her. She can continue using [id number] analgesics as needed. Medical Records I reviewed the patient's medical records. Lab Data I reviewed the patient's lab results. No radiology studies performed this visit Discharge Plan Discharge Patient Disposition: Home Clinical Impression: Chronic pain Condition: Stable Prescriptions: No Action amitriptyline 50 mg tablet 50 mg PO DAILY Qty: 30 5RF albuterol sulfate [Ventolin HFA] 90 mcg/actuation HFA aerosol inhaler 2 puff inhalation Q6H PRN (Reason: Shortness Of Breath) Qty: 8.5 2RF fluticasone propionate 50 mcg/actuation spray,suspension See Rx Instructions .ROUTE .COMPLEX Qty: 16 0RF Dose Instruction: USE 2 SPRAYS IN EACH NOSTRIL EVERY DAY Rx Instructions: USE 2 SPRAYS IN EACH NOSTRIL EVERY DAY cyclobenzaprine 10 mg tablet 10 mg PO DAILY PRN (Reason: Muscle Spasm) acetaminophen 325 mg Tablet 650 mg PO QID PRN (Reason: Pain) famotidine 20 mg tablet 20 mg PO BID docusate sodium 100 mg capsule 100 mg PO BID paliperidone 6 mg Tablet Extended Release 24hr 6 mg PO DAILY 14 Days Qty: 14 0RF Rx Instructions: Take for 7 days and then discontinue after getting the second loading dose Invega Sustenna trazodone 100 mg tablet 100 mg PO BEDTIME 30 Days Qty: 30 1RF Invega Sustenna 156 mg/mL syringe 156 mg IM Q30D 30 Days Qty: 1 2RF Rx Instructions: Give second loading dose IM to deltoid 06/25/2023 then next dose 07/23/2023 then as directed. fluoxetine 40 mg capsule 40 mg PO QAM 30 Days Qty: 30 1RF gabapentin 400 mg capsule 400 mg PO TID 30 Days Qty: 90 1RF mirtazapine 15 mg tablet 15 mg PO DAILY 30 Days Qty: 30 1RF levothyroxine 112 mcg tablet 112 mcg PO DAILY 30 Days Qty: 30 1RF Discharge Orders: Discharge ED (Routine); Ordered 06/21/23 Ordered By: Luana Acevedo Referrals: Rakan Alexandra DO [Primary Care Provider] - Activity Restrictions/Additional Instructions: Please follow-up with your primary care provider on 06/25 as scheduled. Coding Level of Care Code ED [employer] for [facility]ada
[2023-06-21 13:28] VITALS: BP 133/95; PULSE 96; RESP 18; O2SAT 98
[2023-06-21] MEDS: dexamethasone 10 mg/mL INJ 8 MG IM (13:53)
[2023-06-21 13:58] VITALS: BP 133/95; PULSE 94; RESP 16; TEMP 36.7; O2SAT 97
== END 2023-06-21 13:59 | disposition home or self-care (01) ==
PROVIDERS: Emergency Provider Physician Assistant; PCP Family Medicine
DX: G89.29 Other chronic pain (principal); F17.210 Nicotine dependence, cigarettes, uncomplicated
CPT/HCPCS: 96372; 99284; J1100

== ENCOUNTER → 2023-06-25 10:49 | Outpatient (BNVA) | payer MEDICAID, SELFPAY ==
[2023-06-23 12:44] VITALS: BP 119/71; BMI 20.1
== END ==
PROVIDERS: PCP Family Medicine; Visit Provider Psychiatry & Neurology Psychiatry
DX: E03.9 Hypothyroidism, unspecified (principal); Z79.899 Other long term (current) drug therapy
CPT/HCPCS: 84439; 84443

== ENCOUNTER → 2023-07-10 11:15 | Outpatient (BNVA) | payer MEDICAID, SELFPAY ==
[2023-06-23 12:44] VITALS: BP 119/71; BMI 20.1
== END ==
PROVIDERS: PCP Family Medicine; Visit Provider Nurse Practitioner Women's Health
DX: N93.0 Postcoital and contact bleeding (principal)
CPT/HCPCS: 76830

== ENCOUNTER → 2023-12-01 11:46 | Outpatient (BNVA) | payer MEDICAID, SELFPAY ==
[2023-06-23 12:44] VITALS: BP 119/71; BMI 20.1
== END ==
PROVIDERS: PCP Family Medicine
DX: R30.0 Dysuria (principal)
CPT/HCPCS: 81000

== ENCOUNTER → 2023-12-29 10:00 | Outpatient (BNVA) | payer MEDICAID, SELFPAY ==
[2023-06-23 12:44] VITALS: BP 119/71; BMI 20.1
== END ==
PROVIDERS: PCP Family Medicine; Visit Provider Family Medicine
DX: E03.9 Hypothyroidism, unspecified (principal)
CPT/HCPCS: 80053; 80061; 84439; 84443; 85025

== ENCOUNTER 2024-01-16 16:21 | Emergency (ER) | payer MEDICAID, SELFPAY ==
[2023-06-23 12:44] VITALS: BP 119/71; BMI 20.1
[2024-01-16 16:39] VITALS: BP 117/75; PULSE 68; RESP 16; TEMP 36.7; O2SAT 96
--- NOTE | 2024-01-16 16:47 | XRR_ITS ---
PROCEDURE INFORMATION: Exam: XR Right Knee Exam date and time: 01/16/2024 5:59 PM Age: 58 years old Clinical indication: Right; Patient HX: RT knee pain post fall TECHNIQUE: Imaging protocol: Radiologic exam of the right knee. Views: 3 views. COMPARISON: No relevant prior studies available. FINDINGS: Bones/joints: Bones and joint spaces within normal limits. Soft tissues: No significant pathology. XR/XR knee RT 3V* [id number] IMPRESSION: No significant pathology.
--- NOTE | 2024-01-16 16:47 | CTR_ITS ---
PROCEDURE INFORMATION: Exam: CT Head Without Contrast Exam date and time: 01/16/2024 6:11 PM Age: 58 years old Clinical indication: Injury or trauma; Blunt trauma (contusions or hematomas); Patient HX: Fall with occipital head strike. TECHNIQUE: Imaging protocol: Computed tomography of the head without contrast. Radiation optimization: All CT scans at this facility use at least one of these dose optimization techniques: automated exposure control; mA and/or kV adjustment per patient size (includes targeted exams where dose is matched to clinical indication); or iterative reconstruction. COMPARISON: CT head wo con* [id number] 06/07/2022 11:32 PM RADIATION DOSE METRICS: Total DLP (mGy-cm): 973.64 FINDINGS: Brain: Mild areas of low-attenuation in the white matter most likely representing small vessel ischemic change. No evidence of mass effect, intracranial hemorrhage or extra-axial collection. No acute infarct. Cerebral ventricles: Ventricular size and configuration within normal limits for age. Paranasal sinuses: Visualized paranasal sinuses are unremarkable. Mastoid air cells: Mastoids are within normal limits. Orbital cavities: Orbits are within normal limits. Bones: No significant pathology. Soft tissues: No significant pathology. CT/CT head wo con* [id number] IMPRESSION: No acute pathology or significant interval change.
--- NOTE | 2024-01-16 16:47 | XRR_ITS ---
PROCEDURE INFORMATION: Exam: XR Right Hip Exam date and time: 01/16/2024 5:59 PM Age: 58 years old Clinical indication: Right hip; Patient HX: RT hip pain post fall TECHNIQUE: Imaging protocol: Radiologic exam of the right hip. Views: 1 view hip with pelvis when performed. COMPARISON: US transvaginal [id number] 07/10/2023 11:27 AM FINDINGS: Bones/joints: Marked degenerative change of the right hip and mild degenerative changes of the left hip. Mild degenerative change of the sacroiliac joints. Lumbosacral spine fusion hardware is present. Marked degenerative change at L4-L5, incompletely imaged. No acute fracture or dislocation. Soft tissues: Unremarkable. Intraperitoneal space: Surgical clips noted in the left pelvis. XR/XR hip RT 2-3V wo/w pel* [id number] IMPRESSION: No acute fracture. 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
[2024-01-16 19:02] VITALS: BP 148/87; PULSE 58; RESP 17; O2SAT 97
--- NOTE | 2024-01-16 20:12 | ED_ITS ---
Documented by User: SCOTTIE Rosales 01/16/24 20:17 HPI - Fall General: Chief Complaint: Fall Stated Complaint: fall Time Seen by Provider: 01/16/24 19:18 Source: patient Mode of arrival: ambulatory Limitations: no limitations History of Present Illness: Patient is a 58-year-old female who presents the emergency department due to a fall onset earlier today. She states that she fell, she tripped over her feet and injured her right knee and hip in the process. Also states she hit her head, is not on blood thinner did not lose consciousness. No prolonged downti me. At this time she is curled up in a ball in vertical flow chair, appears to be sleeping. No other symptoms or concerning elements reported with the fall. MD complaint: fall Onset (ago): hour(s) Fall from: standing Fall witnessed: no Place fall occurred: home Loss of consciousness: None Prolonged down time: no Symptoms prior to fall: none Context: tripped/slipped Location of injury: head Location of injury - extremities: Right: thigh and knee Associated symptoms-after fall: Denies abdominal pain, chest pain, headache(s) or neck pain Related Data Previous Rx's Medication Instructions Recorded albuterol sulfate 90 mcg/actuation 2 puff inhalation Q6H PRN 06/16/23 aerosol inhaler (Ventolin HFA) Shortness Of Breath #8.5 grams fluticasone propionate 50 See Rx Instructions .Route 06/20/23 mcg/actuation nasal .COMPLEX #16 grams spray,suspension omeprazole 20 mg capsule,delayed 20 mg PO DAILY #90 caps 07/04/23 release fluticasone propionate 110 1 puff inhalation BID #12 grams 08/27/23 mcg/actuation HFA aerosol inhaler cyclobenzaprine 10 mg tablet See Rx Instructions .Route 10/17/23 .COMPLEX #60 tabs gabapentin 400 mg capsule See Rx Instructions .Route 11/18/23 .COMPLEX #90 caps solifenacin 10 mg tablet See Rx Instructions .Route 11/18/23 .COMPLEX #30 tabs fluoxetine 40 mg capsule 80 mg (2 x 40 mg) PO QAM 30 days 12/05/23 #60 caps olanzapine 2.5 mg tablet (Zyprexa) 2.5 mg PO BEDTIME #30 tabs 12/05/23 trazodone 100 mg tablet 100 mg PO BEDTIME PRN sleep 30 12/05/23 days #30 tabs meloxicam 15 mg tablet 15 mg PO DAILY #30 tabs 12/23/23 levothyroxine 100 mcg tablet 100 mcg PO DAILY #60 tabs 12/30/23 docusate sodium 100 mg capsule See Rx Instructions .Route 01/08/24 .COMPLEX #60 caps Allergies Allergy/AdvReac Type Severity Reaction Status Date / Time cefdinir Allergy ALGY-Anaphy Verified 12/29/23 09:14 laxis Review of Systems General: Reports: 10 or more systems reviewed and unremarkable except in HPI and below Const: Reports: other (Fall); Denies: fever(s) or chills Card: Denies: chest pain Resp: Denies: dyspnea or productive cough GI: Denies: abdominal pain, nausea, vomiting or diarrhea : Denies: flank pain Musc: Reports: joint pain (Right hip and right knee); Denies: neck pain, back pain, extremity pain, extremity swelling, joint swelling, joint redness, joint warmth, limited range of motion or muscle weakness Skin/Breast: Denies: rash Neuro: Denies: headache(s), numbness in extremities or weakness in extremities PFSH ED PFSH: Medical History Nicotine dependence due to vaping tobacco product Nicotine dependence, cigarettes, uncomplicated Major depressive disorder, recurrent severe without psychotic features Marijuana dependence Methamphetamine use disorder, severe, in sustained remission Post-traumatic stress disorder, chronic LAC COURTE OREILLES (hard of hearing) Fibromyalgia Lumbar post-laminectomy syndrome Lumbar disc disease Hypothyroidism Surgical History Hx of colonoscopy x3 History of surgery on arm left forearm and right shoulder H/O tubal ligation History of lumbar surgery Family History Grandmother No problems noted. Grandfather No problems noted. Father Diabetes Hyperchloremia Mother Diabetes Stroke Thyroid disease Hyperchloremia Hypertension Family/Other Breast cancer Paternal aunt Sister Thyroid disease Other Ovarian cancer Denies family history of Colon cancer Heart disease Uterine cancer Social History Smoking and tobacco/nicotine status: current every day tobacco/nicotine user Alcohol intake: current Alcohol intake frequency: holidays/special occasions only Alcohol type: beer Substance/Drug Use: former Former substance use details: Meth Female Reproductive History: Para: 3 Spontaneous abortions: Yes Physical Exam Const: COMMON NORMALS: patient oriented x3, no limitations, healthy appearing, alert and well nourished OTHER: Prolopa in the ball and vertical wheelchair, appears to be sleeping HENMT: COMMON NORMALS: normocephalic and atraumatic HEAD & SCALP: normocephalic and atraumatic; no Stewart's sign, no contusion, no hematoma, no palpable skull fracture, no raccoon eyes, no scalp lesion and no scalp tenderness OTHER: No signs of head injury or acute trauma Neck/C-Spine: COMMON NORMALS: full ROM, supple and no meningeal signs Resp: COMMON NORMALS: normal respiratory effort, No use of accessory muscles and clear to auscultation bilaterally AUSCULTATION: clear to auscultation bilaterally Cardio: COMMON NORMALS: regular rate and regular rhythm RATE: regular rate RHYTHM: regular rhythm Extremity: COMMON NORMALS: normal to inspection, full ROM, capillary refill normal, no joint enlargement and no clubbing, cyanosis or edema NARRATIVE EXTREMITY EXAM: No significant reproducible tenderness to palpation of the right hip or right knee joint. No deformity. No shortening or internal/external rotation. She is endorsing pain with active range of motion at both the hip and knee, but does have full strength and no focal sensory changes. Neuro: COMMON NORMALS: patient oriented x3, moves all extremities, no focal motor deficits and no sensory deficits noted SENSORIUM/ORIENTATION: Yes alert MENINGEAL SIGNS: Yes no meningeal signs Skin: COMMON NORMALS: no rashes or lesions noted GENERAL SKIN EXAM: no rashes or lesions noted Course Vital Signs: Vital signs: Vital Signs Temperature 98.1 F 01/16/24 16:39 Pulse Rate 59 L 01/16/24 20:28 Respiratory Rate 16 01/16/24 20:28 Blood Pressure 132/81 01/16/24 20:28 Pulse Oximetry 98 01/16/24 20:28 Oxygen Delivery Me thod Room Air 01/16/24 19:02 MDM - Fall Medical Decision Making Patient had a fall earlier today, states that she just simply tripped and fell. Stating that she hit her head, no blood thinner, no prolonged downtime or loss of consciousness. There were no signs of injury to her head, and a CT did not show any signs of intracranial hemorrhage or other concerning finding. X-ray of her right hip and knee, where she states she hit in the fall, were both negative as well. There were chronic findings of some degenerative joint disease with the right hip are, and cannot be ruled out that this is the cause of her pain. For this she is encouraged to follow-up with primary care, and continue taking home pain medications and monitor for any new or worsening. Lab Data Radiology Impressions Head CT 01/16/24 16:47 IMPRESSION: No acute pathology or significant interval change. Hip/Pelvis X-Ray 01/16/24 16:47 IMPRESSION: No acute fracture. 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 Knee X-Ray 01/16/24 16:47 IMPRESSION: No significant pathology. All radiology interpretation(s) finalized by discharge Discharge Plan Discharge Patient Disposition: Home Clinical Impression: Contusion of right knee, initial encounter Fall Qualifiers: Encounter type: initial encounter Qualified Code(s): W19.XXXA - Unspecified fall, initial encounter Contusion of hip, right Qualifiers: Encounter type: initial encounter Qualified Code(s): S70.01XA - Contusion of right hip, initial encounter CHI (closed head injury) Qualifiers: Encounter type: initial encounter Qualified Code(s): S09.90XA - Unspecified injury of head, initial encounter Condition: Stable Prescriptions: No Action fluticasone propionate 110 mcg/actuation HFA aerosol inhaler 1 puff inhalation BID Qty: 12 2RF fluoxetine 40 mg capsule 80 mg PO QAM 30 Days Qty: 60 5RF olanzapine [Zyprexa] 2.5 mg tablet 2.5 mg PO BEDTIME Qty: 30 3RF Rx Instructions: Take one tablet at bedtime trazodone 100 mg tablet 100 mg PO BEDTIME PRN (Reason: sleep) 30 Days Qty: 30 5RF Rx Instructions: Take one tablet at bedtime as needed for sleep albuterol sulfate [Ventolin HFA] 90 mcg/actuation HFA aerosol inhaler 2 puff inhalation Q6H PRN (Reason: Shortness Of Breath) Qty: 8.5 2RF fluticasone propionate 50 mcg/actuation spray,suspension See Rx Instructions .ROUTE .COMPLEX Qty: 16 0RF Dose Instruction: USE 2 SPRAYS IN EACH NOSTRIL EVERY DAY Rx Instructions: USE 2 SPRAYS IN EACH NOSTRIL EVERY DAY omeprazole 20 mg capsule,delayed release(DR/EC) 20 mg PO DAILY Qty: 90 3RF cyclobenzaprine 10 mg tablet See Rx Instructions .ROUTE .COMPLEX Qty: 60 2RF Dose Instruction: TAKE 1 TABLET BY MOUTH TWICE DAILY NEEDED FOR MUSCLE SPASMS Rx Instructions: TAKE 1 TABLET BY MOUTH TWICE DAILY NEEDED FOR MUSCLE SPASMS solifenacin 10 mg tablet See Rx Instructions .ROUTE .COMPLEX Qty: 30 2RF Dose Instruction: TAKE 1 TABLET BY MOUTH EVERY DAY Rx Instructions: TAKE 1 TABLET BY MOUTH EVERY DAY gabapentin 400 mg capsule See Rx Instructions .ROUTE .COMPLEX Qty: 90 0RF Dose Instruction: take 1 capsule BY MOUTH THREE TIMES DAILY Rx Instructions: take 1 capsule BY MOUTH THREE TIMES DAILY meloxicam 15 mg tablet 15 mg PO DAILY Qty: 30 5RF levothyroxine 100 mcg tablet 100 mcg PO DAILY Qty: 60 1RF docusate sodium 100 mg capsule See Rx Instructions .ROUTE .COMPLEX Qty: 60 0RF Dose Instruction: take 1 capsule BY MOUTH TWICE DAILY Rx Instructions: take 1 capsule BY MOUTH TWICE DAILY Discharge Orders: Discharge ED (Routine); Ordered 01/16/24 Ordered By: Jared Hernandez Referrals: Walker Villarreal MD [Primary Care Provider] - Patient Instructions: Opioid Safety, Pain Management Activity Restrictions/Additional Instructions: Ice to painful areas, rest and recovery. Gentle range of motion exercises of the right lower extremity as tolerated. Monitor for any new or worsening of symptoms and return as discussed, also follow-up with primary care for general reevaluation. Tylenol/ibuprofen for pain. Coding Level of Care Code ED Floor And Wall Applier Liquid for Chg Fwd Documented by User: Adeel Macario DO 01/17/24 15:43 HPI - Fall General: Chief Complaint: Fall Stated Complaint: fall Time Seen by Provider: 01/16/24 19:18 Related Data Previous Rx's Medication Instructions Recorded albuterol sulfate 90 mcg/actuation 2 puff inhalation Q6H PRN 06/16/23 aerosol inhaler (Ventolin HFA) Shortness Of Breath #8.5 grams fluticasone propionate 50 See Rx Instructions .Route 06/20/23 mcg/actuation nasal .COMPLEX #16 grams spray,suspension omeprazole 20 mg capsule,delayed 20 mg PO DAILY #90 caps 07/04/23 release fluticasone propionate 110 1 puff inhalation BID #12 grams 08/27/23 mcg/actuation HFA aerosol inhaler cyclobenzaprine 10 mg tablet See Rx Instructions .Route 10/17/23 .COMPLEX #60 tabs gabapentin 400 mg capsule See Rx Instructions .Route 11/18/23 .COMPLEX #90 caps solifenacin 10 mg tablet See Rx Instructions .Route 11/18/23 .COMPLEX #30 tabs fluoxetine 40 mg capsule 80 mg (2 x 40 mg) PO QAM 30 days 12/05/23 #60 caps olanzapine 2.5 mg tablet (Zyprexa) 2.5 mg PO BEDTIME #30 tabs 12/05/23 trazodone 100 mg tablet 100 mg PO BEDTIME PRN sleep 30 12/05/23 days #30 tabs meloxicam 15 mg tablet 15 mg PO DAILY #30 tabs 12/23/23 levothyroxine 100 mcg tablet 100 mcg PO DAILY #60 tabs 12/30/23 docusate sodium 100 mg capsule See Rx Instructions .Route 01/08/24 .COMPLEX #60 caps Allergies Allergy/AdvReac Type Severity Reaction Status Date / Time cefdinir Allergy ALGY-Anaphy Verified 12/29/23 09:14 laxis PFSH ED PFSH: Medical History Nicotine dependence due to vaping tobacco product Nicotine dependence, cigarettes, uncomplicated Major depressive disorder, recurrent severe without psychotic features Marijuana dependence Methamphetamine use disorder, severe, in sustained remission Post-traumatic stress disorder, chronic LAC COURTE OREILLES (hard of hearing) Fibromyalgia Lumbar post-laminectomy syndrome Lumbar disc disease Hypothyroidism Surgical History Hx of colonoscopy x3 History of surgery on arm left forearm and right shoulder H/O tubal ligation History of lumbar surgery Family History Grandmother No problems noted. Grandfather No problems noted. Father Diabetes Hyperchloremia Mother Diabetes Stroke Thyroid disease Hyperchloremia Hypertension Family/Other Breast cancer Paternal aunt Sister Thyroid disease Other Ovarian cancer Denies family history of Colon cancer Heart disease Uterine cancer Social History Smoking and tobacco/nicotine status: current every day tobacco/nicotine user Alcohol intake: current Alcohol intake frequency: holidays/special occasions only Alcohol type: beer Substance/Drug Use: former Former substance use details: Meth Course Vital Signs: Vital signs: Vital Signs Temperature 98.1 F 01/16/24 16:39 Pulse Rate 59 L 01/16/24 20:28 Respiratory Rate 16 01/16/24 20:28 Blood Pressure 132/81 01/16/24 20:28 Pulse Oximetry 98 01/16/24 20:28 Oxygen Delivery Me thod Room Air 01/16/24 19:02 MDM - Fall Medical Decision Making Patient had a fall earlier today, states that she just simply tripped and fell. Stating that she hit her head, no blood thinner, no prolonged downtime or loss of consciousness. There were no signs of injury to her head, and a CT did not show any signs of intracranial hemorrhage or other concerning finding. X-ray of her right hip and knee, where she states she hit in the fall, were both negative as well. There were chronic findings of some degenerative joint disease with the right hip are, and cannot be ruled out that this is the cause of her pain. For this she is encouraged to follow-up with primary care, and continue taking home pain medications and monitor for any new or worsening. This patient was originally seen by Mr. Mary PA-C. I agree with his history, evaluation, and treatment. Lab Data Radiology Impressions Head CT 01/16/24 16:47 IMPRESSION: No acute pathology or significant interval change. Hip/Pelvis X-Ray 01/16/24 16:47 IMPRESSION: No acute fracture. 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 Knee X-Ray 01/16/24 16:47 IMPRESSION: No significant pathology. Discharge Plan Discharge Patient Disposition: Home Clinical Impression: Contusion of right knee, initial encounter Fall Qualifiers: Encounter type: initial encounter Qualified Code(s): W19.XXXA - Unspecified fall, initial encounter Contusion of hip, right Qualifiers: Encounter type: initial encounter Qualified Code(s): S70.01XA - Contusion of right hip, initial encounter CHI (closed head injury) Qualifiers: Encounter type: initial encounter Qualified Code(s): S09.90XA - Unspecified injury of head, initial encounter Condition: Stable Prescriptions: No Action fluticasone propionate 110 mcg/actuation HFA aerosol inhaler 1 puff inhalation BID Qty: 12 2RF fluoxetine 40 mg capsule 80 mg PO QAM 30 Days Qty: 60 5RF olanzapine [Zyprexa] 2.5 mg tablet 2.5 mg PO BEDTIME Qty: 30 3RF Rx Instructions: Take one tablet at bedtime trazodone 100 mg tablet 100 mg PO BEDTIME PRN (Reason: sleep) 30 Days Qty: 30 5RF Rx Instructions: Take one tablet at bedtime as needed for sleep albuterol sulfate [Ventolin HFA] 90 mcg/actuation HFA aerosol inhaler 2 puff inhalation Q6H PRN (Reason: Shortness Of Breath) Qty: 8.5 2RF fluticasone propionate 50 mcg/actuation spray,suspension See Rx Instructions .ROUTE .COMPLEX Qty: 16 0RF Dose Instruction: USE 2 SPRAYS IN EACH NOSTRIL EVERY DAY Rx Instructions: USE 2 SPRAYS IN EACH NOSTRIL EVERY DAY omeprazole 20 mg capsule,delayed release(DR/EC) 20 mg PO DAILY Qty: 90 3RF cyclobenzaprine 10 mg tablet See Rx Instructions .ROUTE .COMPLEX Qty: 60 2RF Dose Instruction: TAKE 1 TABLET BY MOUTH TWICE DAILY NEEDED FOR MUSCLE SPASMS Rx Instructions: TAKE 1 TABLET BY MOUTH TWICE DAILY NEEDED FOR MUSCLE SPASMS solifenacin 10 mg tablet See Rx Instructions .ROUTE .COMPLEX Qty: 30 2RF Dose Instruction: TAKE 1 TABLET BY MOUTH EVERY DAY Rx Instructions: TAKE 1 TABLET BY MOUTH EVERY DAY gabapentin 400 mg capsule See Rx Instructions .ROUTE .COMPLEX Qty: 90 0RF Dose Instruction: take 1 capsule BY MOUTH THREE TIMES DAILY Rx Instructions: take 1 capsule BY MOUTH THREE TIMES DAILY meloxicam 15 mg tablet 15 mg PO DAILY Qty: 30 5RF levothyroxine 100 mcg tablet 100 mcg PO DAILY Qty: 60 1RF docusate sodium 100 mg capsule See Rx Instructions .ROUTE .COMPLEX Qty: 60 0RF Dose Instruction: take 1 capsule BY MOUTH TWICE DAILY Rx Instructions: take 1 capsule BY MOUTH TWICE DAILY Discharge Orders: Discharge ED (Routine); Ordered 01/16/24 Ordered By: Jared Hernandez Referrals: Walker Villarreal MD [Primary Care Provider] - Patient Instructions: Opioid Safety, Pain Management Activity Restrictions/Additional Instructions: Ice to painful areas, rest and recovery. Gentle range of motion exercises of the right lower extremity as tolerated. Monitor for any new or worsening of symptoms and return as discussed, also follow-up with primary care for general reevaluation. Tylenol/ibuprofen for pain. Coding Level of Care Code ED Floor And Wall Applier Liquid for [place]
[2024-01-16] MEDS: ketorolac 60 mg/2 mL INJ IM (20:24)
[2024-01-16 20:28] VITALS: BP 132/81; PULSE 59; RESP 16; O2SAT 98
== END 2024-01-16 20:27 | disposition home or self-care (01) ==
PROVIDERS: Emergency Provider Physician Assistant; PCP Family Medicine
DX: S70.01XA Contusion of right hip, initial encounter (principal); S09.90XA Unspecified injury of head, initial encounter; W19.XXXA Unspecified fall, initial encounter; Z72.0 Tobacco use
CPT/HCPCS: 70450; 73502; 73562; 96372; 99284; J1885

== ENCOUNTER 2024-03-19 12:45 | Emergency (ER) | payer MEDICAID, SELFPAY ==
[2023-06-23 12:44] VITALS: BP 119/71; BMI 20.1
[2024-03-19 12:48] VITALS: BP 122/78; PULSE 66; RESP 16; TEMP 36.7; O2SAT 98; BMI 22.6
--- NOTE | 2024-03-19 13:14 | XRR_ITS ---
PROCEDURE INFORMATION: Exam: XR Left Wrist Exam date and time: 03/19/2024 5:51 PM Age: 58 years old Clinical indication: Pain; Wrist; Left; Additional info: Fall 3 days ago, left wrist pain TECHNIQUE: Imaging protocol: Radiologic exam of the left wrist. Views: 3 or more views. COMPARISON: No relevant prior studies available. FINDINGS: Bones/joints: There is a small calcific fragments seen dorsally which may represent small chip fracture from the triquetrum. Please correlate clinically. Soft tissues: There is some mild dorsal soft tissue swelling. XR/XR wrist LT min 3V* [id number] IMPRESSION: Question of triquetral fracture.
--- NOTE | 2024-03-19 17:19 | W.ED.URI ---
HPI - URI/Sore Throat General: Chief Complaint: Upper Respiratory Infection Stated Complaint: conjestion Time Seen by Provider: 03/19/24 17:08 History of Present Illness: 58-year-old female with a history of chronic pain syndrome tobacco dependence, depression, fibromyalgia, hypothyroidism who presents to the emergency room with several complaints. She is having sciatic pain. She is having some congestion sneezing and achiness. She says her was diagnosed with COVID. She had a fall 3 days ago and has some pain in her left wrist. She moves it easily. There is no deformity. No bruising. Related Data Previous Rx's Medication Instructions Recorded albuterol sulfate 90 mcg/actuation 2 puff inhalation Q6H PRN 06/16/23 aerosol inhaler (Ventolin HFA) Shortness Of Breath #8.5 grams omeprazole 20 mg capsule,delayed 20 mg PO DAILY #90 caps 07/04/23 release fluticasone propionate 110 1 puff inhalation BID #12 grams 08/27/23 mcg/actuation HFA aerosol inhaler cyclobenzaprine 10 mg tablet See Rx Instructions .Route 10/17/23 .COMPLEX #60 tabs trazodone 100 mg tablet 100 mg PO BEDTIME PRN sleep 30 12/05/23 days #30 tabs meloxicam 15 mg tablet 15 mg PO DAILY #30 tabs 12/23/23 levothyroxine 100 mcg tablet 100 mcg PO DAILY #60 tabs 12/30/23 solifenacin 10 mg tablet See Rx Instructions .Route 02/16/24 .COMPLEX #30 tabs docusate sodium 100 mg capsule See Rx Instructions .Route 03/04/24 .COMPLEX #180 caps fluticasone propionate 50 See Rx Instructions .Route 03/04/24 mcg/actuation nasal .COMPLEX #16 grams spray,suspension gabapentin 300 mg capsule 300 mg PO BID #30 caps 03/04/24 fluoxetine 40 mg capsule 80 mg (2 x 40 mg) PO QAM #60 caps 03/08/24 cyclobenzaprine 10 mg tablet 10 mg PO Q8H PRN muscle spasm #20 03/19/24 tabs dexamethasone 6 mg tablet 6 mg PO DAILY 5 days #5 tabs 03/19/24 tramadol 50 mg tablet 50 mg PO Q8H PRN pain #10 tabs 03/19/24 Allergies Allergy/AdvReac Type Severity Reaction Status Date / Time cefdinir Allergy ALGY-Anaphy Verified 03/04/24 08:49 laxis Review of Systems Narrative: Constitutional symptoms: Negative except as documented in HPI. Skin symptoms: Negative except as documented in HPI. Eye symptoms: Negative except as documented in HPI. ENMT symptoms: Negative except as documented in HPI. Respiratory symptoms: Negative except as documented in HPI. Cardiovascular symptoms: Negative except as documented in HPI. Gastrointestinal symptoms: Negative except as documented in HPI. Genitourinary symptoms: Negative except as documented in HPI. Musculoskeletal symptoms: Negative except as documented in HPI. Neurologic symptoms: Negative except as documented in HPI. Psychiatric symptoms: Negative except as documented in HPI. Endocrine symptoms: Negative except as documented in HPI. PFSH ED PFSH: Medical History Nicotine dependence due to vaping tobacco product Nicotine dependence, cigarettes, uncomplicated Major depressive disorder, recurrent severe without psychotic features Marijuana dependence Methamphetamine use disorder, severe, in sustained remission Post-traumatic stress disorder, chronic ROBINSON (hard of hearing) Fibromyalgia Lumbar post-laminectomy syndrome Lumbar disc disease Hypothyroidism Surgical History Hx of colonoscopy x3 History of surgery on arm left forearm and right shoulder H/O tubal ligation History of lumbar surgery Family History Grandmother No problems noted. Grandfather No problems noted. Father Diabetes Hyperchloremia Mother Diabetes Stroke Thyroid disease Hyperchloremia Hypertension Family/Other Breast cancer Paternal aunt Sister Thyroid disease Other Ovarian cancer Denies family history of Colon cancer Heart disease Uterine cancer Social History (Updated 03/04/24 @ 09:03 by Lisa Kelley LPN) Smoking and tobacco/nicotine status: current every day tobacco/nicotine user Alcohol intake: current Alcohol intake frequency: holidays/special occasions only Alcohol type: beer Substance/Drug Use: former Additional social history: Former Meth use. Current Marijuana use Female Reproductive History: Para: 3 Spontaneous abortions: Yes Physical Exam Narrative: EXAM NARRATIVE: General: Alert, no acute distress. Skin: Warm, dry. Head: Normocephalic, atraumatic. Neck: Supple, trachea midline. Eye: Extraocular movements are intact. Ears, nose, mouth and throat: mucosa moist. Cardiovascular: Regular, Normal peripheral perfusion. Respiratory: Lungs are clear to auscultation, respirations are non-labored, breath sounds are equal, Symmetrical chest wall expansion. Gastrointestinal: Soft, Nontender, Non distended Musculoskeletal: Normal ROM, no deformity. Neurological: Alert and oriented, No focal neurological deficit observed. Psychiatric: Cooperative, appropriate mood & affect. Course Vital Signs: Vital signs: Vital Signs Temperature 98.1 F 03/19/24 12:48 Pulse Rate 66 03/19/24 12:48 Respiratory Rate 16 03/19/24 12:48 Blood Pressure 122/78 03/19/24 12:48 Pulse Oximetry 98 03/19/24 12:48 Oxygen Delivery Me thod Room Air 03/19/24 12:48 MDM - URI/Sore Throat Medical Decision Making X-ray of the left wrist: No acute fractures or dislocations. This was reviewed and interpreted by myself the emergency room physician. I also reviewed the radiology report. Assessment and plan: Sciatica Wrist injury Upper respiratory infection Chronic pain syndrome ? Toradol, Decadron and Norflex in the emergency room IM. Patient can call back about COVID results. - Discharged home - Discussed plan with patient. Answered any questions. - Evaluation and treatment of this problem were appropriate in the emergency setting. All radiology interpretation(s) finalized by discharge Discharge Plan Discharge Patient Disposition: Home Clinical Impression: Wrist injury, Chronic pain syndrome, Viral upper respiratory infection, Sciatica Condition: Stable Prescriptions: New cyclobenzaprine 10 mg tablet 10 mg PO Q8H PRN (Reason: muscle spasm) Qty: 20 0RF dexamethasone 6 mg tablet 6 mg PO DAILY 5 Days Qty: 5 0RF tramadol 50 mg tablet 50 mg PO Q8H PRN (Reason: pain) Qty: 10 0RF No Action fluticasone propionate 110 mcg/actuation HFA aerosol inhaler 1 puff inhalation BID Qty: 12 2RF trazodone 100 mg tablet 100 mg PO BEDTIME PRN (Reason: sleep) 30 Days Qty: 30 5RF Rx Instructions: Take one tablet at bedtime as needed for sleep docusate sodium 100 mg capsule See Rx Instructions .ROUTE .COMPLEX Qty: 180 0RF Dose Instruction: take 1 capsule BY MOUTH TWICE DAILY Rx Instructions: take 1 capsule BY MOUTH TWICE DAILY gabapentin 300 mg capsule 300 mg PO BID Qty: 30 0RF fluticasone propionate 50 mcg/actuation spray,suspension See Rx Instructions .ROUTE .COMPLEX Qty: 16 0RF Dose Instruction: USE 2 SPRAYS IN EACH NOSTRIL EVERY DAY Rx Instructions: USE 2 SPRAYS IN EACH NOSTRIL EVERY DAY albuterol sulfate [Ventolin HFA] 90 mcg/actuation HFA aerosol inhaler 2 puff inhalation Q6H PRN (Reason: Shortness Of Breath) Qty: 8.5 2RF omeprazole 20 mg capsule,delayed release(DR/EC) 20 mg PO DAILY Qty: 90 3RF cyclobenzaprine 10 mg tablet See Rx Instructions .ROUTE .COMPLEX Qty: 60 2RF Dose Instruction: TAKE 1 TABLET BY MOUTH TWICE DAILY NEEDED FOR MUSCLE SPASMS Rx Instructions: TAKE 1 TABLET BY MOUTH TWICE DAILY NEEDED FOR MUSCLE SPASMS meloxicam 15 mg tablet 15 mg PO DAILY Qty: 30 5RF levothyroxine 100 mcg tablet 100 mcg PO DAILY Qty: 60 1RF solifenacin 10 mg tablet See Rx Instructions .ROUTE .COMPLEX Qty: 30 2RF Dose Instruction: TAKE 1 TABLET BY MOUTH EVERY DAY Rx Instructions: TAKE 1 TABLET BY MOUTH EVERY DAY fluoxetine 40 mg capsule 80 mg PO QAM Qty: 60 3RF Rx Instructions: Take two capsules every morning Discharge Orders: Discharge ED (Routine); Ordered 03/19/24 Ordered By: Merline Schafer Referrals: Walker Villarreal MD [Primary Care Provider] - Discharge Diet: Usual diet Discharge Activity: Increase activity as tolerated Patient Instructions: Opioid Safety, Pain Management Activity Restrictions/Additional Instructions: Thank you for choosing [facility] for your healthcare needs today. Please realize this is an emergency room and that we are providing you with a medical screening exam and this may not be complete and all inclusive of all the testing and or work up that you may need to determine your ailment or severity of your illness. You have been screened and evaluated and felt safe for discharge. Health conditions do change or evolve sometimes and as such it is important that you follow up with your Primary Doctor to be re checked, 3-5 days is a general good time frame for follow up. You are always welcome to return to the ED for re assessment if your symptoms are worsening or you have new concerns Coding Level of Care Code ED Brass Cleaner for Remington Parada
[2024-03-19] MEDS: ketorolac 60 mg/2 mL INJ IM (17:41)
[2024-03-19] MEDS: dexamethasone 10 mg/mL INJ IM (17:41)
[2024-03-19] MEDS: orphenadrine 30 mg/mL Inj 2 mL 60 MG IM (17:41)
[2024-03-19 18:59] LABS: Covid PCR NEGATIVE (Negative); Influenza A NEGATIVE (Negative); Influenza B NEGATIVE (Negative); Respiratory Syncytial Virus Ce NEGATIVE (Negative)
[2024-03-19 19:02] VITALS: BP 168/105; PULSE 75; RESP 16; O2SAT 95
== END 2024-03-19 19:02 | disposition home or self-care (01) ==
PROVIDERS: Emergency Provider Emergency Medicine; PCP Family Medicine
DX: M54.30 Sciatica, unspecified side (principal); S69.92XA Unspecified injury of left wrist, hand and finger(s), initial encounter; J06.9 Acute upper respiratory infection, unspecified; X58.XXXA Exposure to other specified factors, initial encounter
CPT/HCPCS: 73110; 87637; 96372; 99284; J1100; J1885; J2360

== ENCOUNTER → 2024-06-10 15:39 | Outpatient (BNVA) | payer MEDICAID, SELFPAY ==
[2024-05-28 15:17] VITALS: BP 129/90; BMI 22.6
== END ==
PROVIDERS: PCP Family Medicine; Visit Provider Family Medicine
DX: J30.9 Allergic rhinitis, unspecified (principal); R30.0 Dysuria; N30.20 Other chronic cystitis without hematuria; E03.9 Hypothyroidism, unspecified; N94.6 Dysmenorrhea, unspecified; F43.12 Post-traumatic stress disorder, chronic; F33.2 Major depressive disorder, recurrent severe without psychotic features; F12.20 Cannabis dependence, uncomplicated; K21.9 Gastro-esophageal reflux disease without esophagitis; R32 Unspecified urinary incontinence; R15.9 Full incontinence of feces; M54.50 Low back pain, unspecified; M54.2 Cervicalgia; G89.29 Other chronic pain; G47.00 Insomnia, unspecified; F17.210 Nicotine dependence, cigarettes, uncomplicated; Z71.6 Tobacco abuse counseling
CPT/HCPCS: 80061; 84439; 84443

== ENCOUNTER 2024-07-14 18:51 | Emergency (ER) | payer MEDICAID, SELFPAY ==
[2024-05-28 15:17] VITALS: BP 129/90; BMI 22.6
[2024-07-14 18:55] VITALS: BP 166/84; PULSE 111; TEMP 36.8; O2SAT 96
--- NOTE | 2024-07-14 19:11 | CTR_ITS ---
PROCEDURE INFORMATION: Exam: CT Head Without Contrast Exam date and time: 07/14/2024 7:25 PM Age: 58 years old Clinical indication: Dizziness; Additional info: Dizziness, falls TECHNIQUE: Imaging protocol: Computed tomography of the head without contrast. Radiation optimization: All CT scans at this facility use at least one of these dose optimization techniques: automated exposure control; mA and/or kV adjustment per patient size (includes targeted exams where dose is matched to clinical indication); or iterative reconstruction. COMPARISON: CT head wo con* [id number] 03/27/2023 18:11 RADIATION DOSE METRICS: Total DLP (mGy-cm): 1079.76 FINDINGS: Brain: [id number] patchy periventricular and deep white matter decreased density seen in both cerebral hemispheres. The midline is intact.Beam hardening artifact obscures resolution through the posterior fossa structures. No mass effect. Flattening of the pituitary gland within the sella turcica is noted. This is in the range of normal. Cerebral ventricles: Ventricles demonstrate normal size shape and configuration and are felt to be in proportion to the degree of widening of the sulci, sylvian fissures and basilar cisterns. Paranasal sinuses: Visualized sinuses are unremarkable. No fluid levels. Mastoid air cells: Visualized mastoid air cells are well aerated. Bones: Unremarkable. No acute fracture. Soft tissues: Unremarkable. CT/CT head wo con* [id number] IMPRESSION: 1. No acute intracranial head CT findings identified. 2. Atrophy/involutional changes of aging with chronic small-vessel disease again seen and most similar to the prior study.
--- NOTE | 2024-07-14 20:03 | PC.NURSE ---
Pt refused labs and while obtaining a urine sample she dumped it out refusing to give urine, stating the last time I fell they did not do this. Pt stated she refused labs due to her thyroid issues.
--- NOTE | 2024-07-14 20:29 | W.ED.FALL ---
HPI - Fall General: Chief Complaint: Fall Stated Complaint: Fall Time Seen by Provider: 07/14/24 19:15 Source: patient Mode of arrival: ambulatory Limitations: no limitations History of Present Illness: Patient is a 58-year-old female with past medical history of substance use disorder who presents the emergency department stating that she has been falling and 1 such fall today cause her to hit her head. She states that she has been seen before for falling, and states that she has tried to see her regular doctor but they want to see me for some reason. She then states that she has fibromyalgia and essentially demands pain medicine as well as prescriptions. She will not tell me if she has any symptoms prior to falling or if she has any injuries, stating that she just has pain all over and wants pain medicine. Overall she is a poor historian and does not cooperate with the physical exam, and demands to see a medical doctor. She is expressing paranoia over signing consent forms during check-in. MD complaint: fall Related Data Previous Rx's ?Medication ?Instructions ?Recorded albuterol sulfate 90 mcg/actuation 2 puff inhalation Q6H PRN 06/16/23 aerosol inhaler (Ventolin HFA) Shortness Of Breath #8.5 grams omeprazole 20 mg capsule,delayed 20 mg PO DAILY #90 caps 07/04/23 release meloxicam 15 mg tablet 15 mg PO DAILY #30 tabs 12/23/23 docusate sodium 100 mg capsule See Rx Instructions .Route 03/04/24 .COMPLEX #180 caps cyclobenzaprine 10 mg tablet 10 mg PO Q8H PRN muscle spasm #20 03/19/24 tabs fluoxetine 40 mg capsule 80 mg (2 x 40 mg) PO QAM #180 caps 03/25/24 trazodone 100 mg tablet 100 mg PO BEDTIME PRN sleep #90 03/25/24 tabs solifenacin 10 mg tablet 10 mg PO DAILY 90 days #90 tabs 05/26/24 ascorbic acid (vitamin C) 500 mg 500 mg PO DAILY #90 tabs 06/10/24 tablet ipratropium bromide 21 mcg (0.03 2 spray intranasal BID #30 mL 06/10/24 %) nasal spray levothyroxine 100 mcg tablet 100 mcg PO DAILY #90 tabs 06/10/24 methenamine hippurate 1 gram tablet 1 g PO BID #180 tabs 06/10/24 Allergies Allergy/AdvReac Type Severity Reaction Status Date / Time cefdinir Allergy ALGY-Anaphy Verified 07/14/24 19:01 laxis Review of Systems General: Reports: Other (Unobtainable due to uncooperation and poor historian) [facility] ED PFSH: Medical History Psychiatric care Nicotine dependence due to vaping tobacco product Nicotine dependence, cigarettes, uncomplicated Major depressive disorder, recurrent severe without psychotic features Marijuana dependence Methamphetamine use disorder, severe, in sustained remission Post-traumatic stress disorder, chronic VIEJAS (hard of hearing) Fibromyalgia Lumbar post-laminectomy syndrome Lumbar disc disease Hypothyroidism Surgical History Hx of colonoscopy x3 History of surgery on arm left forearm and right shoulder H/O tubal ligation History of lumbar surgery Family History Grandmother No problems noted. Grandfather No problems noted. Father Diabetes Hyperchloremia Mother Diabetes Stroke Thyroid disease Hyperchloremia Hypertension Family/Other Breast cancer Paternal aunt Sister Thyroid disease Other Ovarian cancer Denies family history of Colon cancer Heart disease Uterine cancer Social History Smoking and tobacco/nicotine status: current every day tobacco/nicotine user Alcohol intake: current Alcohol intake frequency: holidays/special occasions only Alcohol type: beer Substance/Drug Use: former Additional social history: Former Meth use. Current Marijuana use Adopted: No Caregiver/support person: No Lives independently: Yes Housing: Apartment Marital status: Legally Number of children: 3 Number of grandchildren: 2 Highest education level completed: 11th Grade service: No Current occupational status: unemployed Current occupational exposures/hazards: No Pets and animals: No Leisure activites: exercise and other Leisure activities details: arts and crafts Sexually active: No Do you think of yourself as: Straight/Heterosexual Current gender identity: Female Rubi/Adventist: Restorationism Special rubi needs: No Agree to transfusion: Yes Female Reproductive History: Para: 3 Spontaneous abortions: Yes Physical Exam Const: COMMON NORMALS: no acute distress and patient oriented x3 EXAM LIMITATIONS: behavioral limitations GENERAL APPEARANCE: disheveled ORIENTATION/CONSCIOUSNESS: Yes awake, Yes oriented to person, Yes oriented to place and Yes oriented to time HENMT: COMMON NORMALS: normocephalic, atraumatic and hearing grossly normal bilaterally HEAD & SCALP: normocephalic and atraumatic OTHER: No sign of face head and neck trauma. Negative raccoon eyes, negative Stewart sign. Eye: COMMON NORMALS: Equal, round and reactive pupils present, EOMs intact bilaterally and conjunctivae normal CONJUNCTIVA: Yes conjunctivae normal PUPIL: Yes Equal, round and reactive pupils present Neck/C-Spine: COMMON NORMALS: full ROM, supple and no JVD Resp: COMMON NORMALS: normal respiratory effort, No retractions, No use of accessory muscles and clear to auscultation bilaterally AUSCULTATION: clear to auscultation bilaterally Cardio: COMMON NORMALS: no JVD, regular rate, regular rhythm, No clicks present (Cardio), No murmurs present (Cardio) and No rub (Cardio) RATE: regular rate RHYTHM: regular rhythm GI: COMMON NORMALS: Normal to inspection, nondistended, normoactive bowel sounds present, Soft to palpation and non-tender AUSCULTATION: Yes normoactive bowel sounds PALPATION: Yes Soft to palpation RECTAL EXAM: deferred Extremity: NARRATIVE EXTREMITY EXAM: Old appearing bruise to left upper extremity. All other joints and extremities palpated and nontender. No other signs of trauma. Neuro: COMMON NORMALS: patient oriented x3, moves all extremities, no focal motor deficits and no sensory deficits noted SENSORIUM/ORIENTATION: Yes oriented to person, Yes oriented to place and Yes oriented to time Skin: COMMON NORMALS: no rashes or lesions noted GENERAL SKIN EXAM: no rashes or lesions noted Course Vital Signs: Vital signs: Vital Signs Temperature 98.3 F 07/14/24 18:55 Pulse Rate 111 H 07/14/24 18:55 Blood Pressure 166/84 07/14/24 18:55 Pulse Oximetry 96 07/14/24 18:55 Oxygen Delivery Me thod Room Air 07/14/24 18:55 MDM - Fall Medical Decision Making This patient presented stating that she has been falling, this is a chronic issue and she has been dealing with it for weeks, stating she has been seen here in the past. Reviewing records I did personally see the patient back in January due to a similar issue, she had a negative workup at that time. Here she adamantly denies giving blood work, stating that she did not want to cause issues to her thyroid. Multiple times she mentions narcotic pain medications, at one point stating that tramadol worked for her in the past and she will not leave without a prescription. Attempted to obtain urinalysis and urine drug screen, she urinated in the hat and then subsequently dumped it down the sink. Throughout ED stay she has been noted to be writing down names of all of the people involved in her care. I told her that would like to obtain labs for further evaluation and to address why she may be falling, she questions this stating that you did not get labs last time. She then demands to see a medical doctor, I discussed the patient's situation with Dr. Schafer here in the emergency department who kindly agreed to see the patient and agrees that if she is refusing labs and further workup she can be discharged and follow-up with regular doctor. Security required to escort this patient out of the emergency department. Lab Data Radiology Impressions Head CT 07/14/24 19:11 IMPRESSION: 1. No acute intracranial head CT findings identified. 2. Atrophy/involutional changes of aging with chronic small-vessel disease again seen and most similar to the prior study. All radiology interpretation(s) finalized by discharge Discharge Plan Discharge Patient Disposition: Home Clinical Impression: Falls, Left against medical advice Condition: Stable Prescriptions: No Action docusate sodium 100 mg capsule See Rx Instructions .ROUTE .COMPLEX Qty: 180 0RF Dose Instruction: take 1 capsule BY MOUTH TWICE DAILY Rx Instructions: take 1 capsule BY MOUTH TWICE DAILY ipratropium bromide 21 mcg (0.03 %) spray,non-aerosol 2 spray intranasal BID Qty: 30 1RF Rx Instructions: administer into each nostril ascorbic acid (vitamin C) 500 mg tablet 500 mg PO DAILY Qty: 90 1RF methenamine hippurate 1 gram tablet 1 g PO BID Qty: 180 2RF albuterol sulfate [Ventolin HFA] 90 mcg/actuation HFA aerosol inhaler 2 puff inhalation Q6H PRN (Reason: Shortness Of Breath) Qty: 8.5 2RF omeprazole 20 mg capsule,delayed release(DR/EC) 20 mg PO DAILY Qty: 90 3RF meloxicam 15 mg tablet 15 mg PO DAILY Qty: 30 5RF fluoxetine 40 mg capsule 80 mg PO QAM Qty: 180 2RF Rx Instructions: Take two capsules every morning trazodone 100 mg tablet 100 mg PO BEDTIME PRN (Reason: sleep) Qty: 90 2RF Rx Instructions: Take one tablet at bedtime as needed for sleep solifenacin 10 mg tablet 10 mg PO DAILY 90 Days Qty: 90 3RF levothyroxine 100 mcg tablet 100 mcg PO DAILY Qty: 90 1RF cyclobenzaprine 10 mg tablet 10 mg PO Q8H PRN (Reason: muscle spasm) Qty: 20 0RF Discharge Orders: Discharge ED (Routine); Ordered 07/14/24 Ordered By: Jared Hernandez Referrals: Walker Villarreal MD [Primary Care Provider, Family Practice] Activity Restrictions/Additional Instructions: Follow-up with your regular doctor, return with any new or worsening Print Language: Albanian Coding Level of Care Code ED Laboratory Animal Facility Supervisor for Remington Parada
== END 2024-07-14 20:25 | disposition home or self-care (01) ==
PROVIDERS: Emergency Provider Physician Assistant; PCP Family Medicine
DX: Z53.21 Procedure and treatment not carried out due to patient leaving prior to being seen by health care provider (principal); R29.6 Repeated falls; Z72.0 Tobacco use
CPT/HCPCS: 70450; 99284

== ENCOUNTER 2024-07-27 10:27 | Inpatient (IN) | payer MEDICAID, SELFPAY ==
[2024-05-28 15:17] VITALS: BP 129/90; BMI 22.6
[2024-07-27 10:47] VITALS: BP 171/101; PULSE 97; RESP 18; TEMP 36.7; O2SAT 98
--- NOTE | 2024-07-27 10:48 | W.ED.PSYCHS ---
HPI - Psych General: Chief Complaint: Psychiatric Symptoms Stated Complaint: SI/HI Time Seen by Provider: 07/27/24 10:35 Source: patient Mode of arrival: EMS Limitations: no limitations History of Present Illness: Patient is a 58-year-old female presenting to the emergency department via EMS from Crisis. Patient is a difficult historian. She states that [facility] called an ambulance and does not know why she is here. She then reports that she may have made threats towards somebody else. When asked if she is having any suicidal or homicidal ideations, she confirms that she does but not right now. She states that she does have a plan and she wrote it down in her journal but that she does not remember what it is. She denies any medical complaints at this time. She arrives to the ED on 96-hour hold. According to salmavikeyonna patient was paranoid. She made statements that she tried to hang herself with a cord and that she was either going to kill herself or somebody else. Salmavit states that her thoughts were disconnected and contradictory. MD complaint: other (paranoid/SI/HI) Onset (ago): hour(s) Duration: other (unknown) Relieving factors: none Exacerbating factors: none Associated psychiatric symptoms: none Associated symptoms: Deny auditory hallucinations, visual hallucinations, depression, homicidal ideation or suicidal ideation Treatments prior to arrival: placed on mental health hold Related Data Previous Rx's ?Medication ?Instructions ?Recorded omeprazole 20 mg capsule,delayed 20 mg PO DAILY #90 caps 07/04/23 release meloxicam 15 mg tablet 15 mg PO DAILY #30 tabs 12/23/23 fluoxetine 40 mg capsule 80 mg (2 x 40 mg) PO QAM #180 caps 03/25/24 trazodone 100 mg tablet 100 mg PO BEDTIME PRN sleep #90 03/25/24 tabs solifenacin 10 mg tablet 10 mg PO DAILY 90 days #90 tabs 05/26/24 ipratropium bromide 21 mcg (0.03 2 spray intranasal BID #30 mL 06/10/24 %) nasal spray levothyroxine 100 mcg tablet 100 mcg PO DAILY #90 tabs 06/10/24 methenamine hippurate 1 gram tablet 1 g PO BID #180 tabs 06/10/24 Allergies Allergy/AdvReac Type Severity Reaction Status Date / Time cefdinir Allergy ALGY-Anaphy Verified 07/14/24 19:01 laxis Review of Systems General: Reports: ROS unobtainable due to medical condition and ROS unobtainable due to mental status Psych: Reports: paranoia (per affidavit); Denies: anxiety, depression, visual hallucinations, auditory hallucinations, suicidal ideation or homicidal ideation PFSH ED PFSH: Medical History Psychiatric care Nicotine dependence due to vaping tobacco product Nicotine dependence, cigarettes, uncomplicated Major depressive disorder, recurrent severe without psychotic features Marijuana dependence Methamphetamine use disorder, severe, in sustained remission Post-traumatic stress disorder, chronic NINIL[place]IK (hard of hearing) Fibromyalgia Lumbar post-laminectomy syndrome Lumbar disc disease Hypothyroidism Surgical History Hx of colonoscopy x3 History of surgery on arm left forearm and right shoulder H/O tubal ligation History of lumbar surgery Family History Grandmother No problems noted. Grandfather No problems noted. Father Diabetes Hyperchloremia Mother Diabetes Stroke Thyroid disease Hyperchloremia Hypertension Family/Other Breast cancer Paternal aunt Sister Thyroid disease Other Ovarian cancer Denies family history of Colon cancer Heart disease Uterine cancer Social History Smoking and tobacco/nicotine status: current every day tobacco/nicotine user Alcohol intake: current Alcohol intake frequency: holidays/special occasions only Alcohol type: beer Substance/Drug Use: former Additional social history: Former Meth use. Current Marijuana use Adopted: No Caregiver/support person: No Lives independently: Yes Housing: Apartment Marital status: Legally Number of children: 3 Number of grandchildren: 2 Highest education level completed: 11th Grade service: No Current occupational status: unemployed Current occupational exposures/hazards: No Pets and animals: No Leisure activites: exercise and other Leisure activities details: arts and crafts Sexually active: No Do you think of yourself as: Straight/Heterosexual Current gender identity: Female Rubi/Samaritan: Holiness Special rubi needs: No Agree to transfusion: Yes Female Reproductive History: Para: 3 Spontaneous abortions: Yes Physical Exam Const: COMMON NORMALS: no acute distress, average body habitus, no limitations and alert GENERAL APPEARANCE: disheveled ORIENTATION/CONSCIOUSNESS: Yes oriented to person and Yes oriented to place OTHER: Patient responds appropriately to orientation of person and place. She is otherwise contradictory. HENMT: COMMON NORMALS: normocephalic, atraumatic and hearing grossly normal bilaterally HEAD & SCALP: normocephalic and atraumatic Eye: COMMON NORMALS: Equal, round and reactive pupils present, EOMs intact bilaterally and conjunctivae normal CONJUNCTIVA: Yes conjunctivae normal PUPIL: Yes Equal, round and reactive pupils present Neck/C-Spine: COMMON NORMALS: full ROM, no lymphadenopathy and no JVD Chest: COMMONS NORMALS: normal inspection of the chest and normal palpation of entire chest wall Resp: COMMON NORMALS: normal respiratory effort, No retractions, No use of accessory muscles and clear to auscultation bilaterally AUSCULTATION: clear to auscultation bilaterally Cardio: COMMON NORMALS: no JVD, regular rate, regular rhythm, S1 normal heart sound present and S2 normal heart sound present RATE: regular rate RHYTHM: regular rhythm HEART SOUNDS: S1 normal heart sound present and S2 normal heart sound present Extremity: COMMON NORMALS: normal to inspection, full ROM, capillary refill normal, no joint enlargement and no clubbing, cyanosis or edema Neuro: СВЕТЛАНА COMA SCALE: document GCS findings [place] coma scale eye opening: Spontaneous [place] coma scale verbal response: Orientated Светлана coma scale motor response: Obey commands [place] coma scale total score: 15 COMMON NORMALS: CN's II-XII intact bilaterally, moves all extremities, no focal motor deficits, no sensory deficits noted and gait normal SENSORIUM/ORIENTATION: Yes alert, Yes oriented to person and Yes oriented to place Psych: COMMON NORMALS: cooperative, normal affect, activity/motor behavior normal, denies hallucinations, denies homicidal ideation and denies suicidal ideation APPEARANCE: Yes disheveled ATTITUDE: Yes calm ACTIVITY/MOTOR BEHAVIOR: Yes appropriate eye contact, Yes fidgeting and Yes restless SPEECH: Yes slow MOOD & AFFECT: Yes euthymic mood THOUGHT PROCESS: disorganized THOUGHT CONTENT: Yes Normal thought content present INSIGHT: Limited insight present (Psych) JUDGEMENT: Limited judgement present (Psych) Course Consultations: Consultation #1: Dr. Ortiz-accepts to [facility] Vital Signs: Vital signs: Vital Signs Temperature 98.1 F 07/27/24 10:47 Pulse Rate 98 07/27/24 12:00 Respiratory Rate 16 07/27/24 12:00 Blood Pressure 149/86 07/27/24 12:00 Pulse Oximetry 97 07/27/24 12:00 Oxygen Delivery Me thod Room Air 07/27/24 12:00 MDM - Psych Medical Decision Making Patient will be admitted to Dr. Ortiz to [facility] for mental health evaluation. She on a 96-hour hold. Differential Diagnosis Likely acute psychosis, suicidal ideation, depression and drug-induced psychotic disorder Medical Records I reviewed the patient's medical records. Lab Data I reviewed the patient's lab results. 07/27/24 10:44 07/27/24 10:44 Radiology Impressions Chest X-Ray 07/27/24 11:21 IMPRESSION: 1. No acute cardiopulmonary finding. Laboratory Results WBC 12.95 10^3/uL (3.29-11.43) H 07/27/24 10:44 RBC 4.09 10^6/uL (3.85-5.65) 07/27/24 10:44 Hgb 13.10 g/dL (11.27-16.99) 07/27/24 10:44 Hct 39.6 % (36-47) 07/27/24 10:44 MCV 96.8 fl (85-98) 07/27/24 10:44 MCH 32.0 pg (27-33) 07/27/24 10:44 MCHC 33.1 g/dL (30-55) 07/27/24 10:44 RDW 13.1 % (12.1-15.1) 07/27/24 10:44 Plt Count 467 10^3/cmm (157-399) H 07/27/24 10:44 MPV 8.8 fL (7.4-10.4) 07/27/24 10:44 Neut % (Auto) 69.1 % 07/27/24 10:44 Lymph % (Auto) 23.3 % 07/27/24 10:44 Tillman % (Auto) 5.5 % 07/27/24 10:44 Eos % (Auto) 0.6 % 07/27/24 10:44 Baso % (Auto) 0.8 % 07/27/24 10:44 Neut # (Auto) 8.94 10^3/uL (1.8-7.7) H 07/27/24 10:44 Lymph # (Auto) 3.0 10^3/uL (0.8-4.8) 07/27/24 10:44 Tillman # (Auto) 0.7 10^3/uL (0.2-0.9) 07/27/24 10:44 Eos # (Auto) 0.1 10^3/uL (0.0-0.8) 07/27/24 10:44 Baso # (Auto) 0.1 10^3/uL (0.0-0.1) 07/27/24 10:44 Nucleated RBC % (auto) 0 % 07/27/24 10:44 Nucleated RBCs # 0.0 /100WBC 07/27/24 10:44 Sodium 135 mmol/L (136-145) L 07/27/24 10:44 Potassium 3.8 mmol/L (3.5-5.1) 07/27/24 10:44 Chloride 95 mmol/L (98-107) L 07/27/24 10:44 Carbon Dioxide 26 mmol/L (22-29) 07/27/24 10:44 Anion Gap 17.8 (5-19) 07/27/24 10:44 BUN 7 mg/dL (6-20) 07/27/24 10:44 Creatinine 0.6 mg/dL (0.5-0.9) 07/27/24 10:44 GFR Calculation 103.4 mL/min (90-130) 07/27/24 10:44 Glucose 133 mg/dL (65-115) H 07/27/24 10:44 Calculated Osmolality 280 mOsm/kg (285-295) L 07/27/24 10:44 Calcium 9.9 mg/dL (8.5-10.5) 07/27/24 10:44 Total Bilirubin 0.4 mg/dL (0.15-1.2) 07/27/24 10:44 AST 35 U/L (0-32) H 07/27/24 10:44 ALT 41 U/L (0-33) H 07/27/24 10:44 Alkaline Phosphatase 125 U/L (35-105) H 07/27/24 10:44 Total Protein 7.7 g/dL (6.6-8.7) 07/27/24 10:44 Albumin 4.4 g/dL (3.5-5.2) 07/27/24 10:44 Globulin 3.3 g/dL (1.3-4.6) 07/27/24 10:44 Lipase 23 U/L (13-60) 07/27/24 10:44 TSH 4.01 uIU/mL (0.27-4.20) 07/27/24 10:44 Salicylates < 0.3 mg/dL (3-10) L 07/27/24 10:44 Acetaminophen < 5.0 ug/mL (10-30) L 07/27/24 10:44 Ethyl Alcohol < 10 mg/dL (0-10) 07/27/24 10:44 All radiology interpretation(s) finalized by discharge Discharge Plan Discharge Condition: Stable Prescriptions: No Action ipratropium bromide 21 mcg (0.03 %) spray,non-aerosol 2 spray intranasal BID Qty: 30 1RF Rx Instructions: administer into each nostril methenamine hippurate 1 gram tablet 1 g PO BID Qty: 180 2RF omeprazole 20 mg capsule,delayed release(DR/EC) 20 mg PO DAILY Qty: 90 3RF meloxicam 15 mg tablet 15 mg PO DAILY Qty: 30 5RF fluoxetine 40 mg capsule 80 mg PO QAM Qty: 180 2RF Rx Instructions: Take two capsules every morning trazodone 100 mg tablet 100 mg PO BEDTIME PRN (Reason: sleep) Qty: 90 2RF Rx Instructions: Take one tablet at bedtime as needed for sleep solifenacin 10 mg tablet 10 mg PO DAILY 90 Days Qty: 90 3RF levothyroxine 100 mcg tablet 100 mcg PO DAILY Qty: 90 1RF Referrals: Walker Villarreal MD [Primary Care Provider, Family Practice] Print Language: Montserratian Coding Level of Care Code ED Machine Joint Cutter for Remington Parada
[2024-07-27 10:51] LABS: Basophils # 0.1 10^3/uL (0.0-0.1); Basophils % 0.8 %; Eosinophils # 0.1 10^3/uL (0.0-0.8); Eosinophils % 0.6 %; Hematocrit 39.6 % (36-47); Lymphocytes % 23.3 %; Mean Corpuscular HGB Conc 33.1 g/dL (30-55); Mean Corpuscular Volume 96.8 fl (85-98); Mean Platelet Volume 8.8 fL (7.4-10.4); Monocytes # 0.7 10^3/uL (0.2-0.9); Monocytes % 5.5 %; Neutrophils # 8.94 10^3/uL (1.8-7.7); Neutrophils % 69.1 %; Nucleated Red Blood Cells % 0 %; Platelet Count 467 10^3/cmm (157-399); Red Blood Count 4.09 10^6/uL (3.85-5.65); Red Cell Distribution Width 13.1 % (12.1-15.1); White Blood Count 12.95 10^3/uL (3.29-11.43)
--- NOTE | 2024-07-27 11:21 | XR_ITS ---
WS: [id number] Exam: XR chest 1V portable [id number] Date/Time of Exam: 07/27/2024 11:25 AM Reason For Exam: psych Comparison 10/02/2021. Lungs are fully inflated and clear. Normal cardiomediastinal silhouette. Old bilateral rib fractures. Postoperative change of the distal RIGHT clavicle. Spondylosis of the dorsal spine with thoracolumbar levoscoliosis. XR/XR chest 1V portable [id number] IMPRESSION: 1. No acute cardiopulmonary finding.
[2024-07-27 11:27] LABS: Alanine Aminotransferase 41 U/L (0-33); Albumin Level 4.4 g/dL (3.5-5.2); Alkaline Phosphatase 125 U/L (35-105); Anion Gap 17.8 (5-19); Aspartate Amino Transferase 35 U/L (0-32); Blood Urea Nitrogen 7 mg/dL (6-20); Calcium 9.9 mg/dL (8.5-10.5); Carbon Dioxide 26 mmol/L (22-29); Chloride 95 mmol/L (98-107); Globulin 3.3 g/dL (1.3-4.6); Glomerular Filtration Rate 103.4 mL/min (90-130); Glucose 133 mg/dL (65-115); Osmolality Calculated 280 mOsm/kg (285-295); Potassium 3.8 mmol/L (3.5-5.1); Sodium 135 mmol/L (136-145); Thyroid Stimulating Hormone 4.01 uIU/mL (0.27-4.20); Total Bilirubin 0.4 mg/dL (0.15-1.2); Total Protein 7.7 g/dL (6.6-8.7)
[2024-07-27 11:32] LABS: Acetaminophen < 5.0 ug/mL (10-30); Alcohol Level < 10 mg/dL (0-10); Salicylate < 0.3 mg/dL (3-10)
[2024-07-27 12:00] VITALS: BP 149/86; PULSE 98; RESP 16; O2SAT 97
--- NOTE | 2024-07-27 12:07 | PC.NURSE ---
96 hr rights reviewed with pt @[id number] with assistance of [facility] oracle security consultant Gary Jones. All education reviewed with pt at this time. Pt verbalized understanding to hold to HS and had no questions in regards to hold. Pt copy was left @bedside with pt. Pt provided a sandwich and sprite. No further needs.
[2024-07-27 12:15] LABS: Lipase 23 U/L (13-60)
[2024-07-27 12:37] VITALS: BP 146/88; PULSE 97; O2SAT 98
[2024-07-27 13:01] VITALS: BP 156/90; PULSE 87; RESP 18; TEMP 37.1; O2SAT 97
[2024-07-27 14:00] VITALS: BP 150/92; PULSE 79; RESP 16; TEMP 36.5; O2SAT 97
[2024-07-27] MEDS: acetaminophen 325 mg Tablet 650 MG PO ×2 (14:10→22:59)
--- NOTE | 2024-07-27 14:38 | PC.ADMIT ---
[address] Admission Note:Pt states that she was at [facility] because she was having a hard time. She states that she told them she was going to hang herself or hurt someone else. She was transported to the ER and placed on a 96 hour hold. She was pleasant during admission and answered all questions. Pt states that she has two hearing aids she is supposed to wear so you have to be looking at her when you speak, speak slow, and keep words simple. Pt has a large scrape that is scabbed over on her R. Knee. She states that she falls frequently and has been seen in ER for this. The patient,Arcelia Patterson,58 y/o, was given written information regarding hospital policies, unit procedures and contact persons. Patient's smoking status: current every day smoker. Vital Signs - 8 hr 07/27/24 10:47 07/27/24 12:00 07/27/24 12:37 Temperature 98.1 F Pulse Rate 97 98 97 Respiratory Rate 18 16 Blood Pressure 171/101 149/86 146/88 Pulse Oximetry 98 97 98 Oxygen Delivery Method Room Air Room Air 07/27/24 13:01 07/27/24 13:16 Temperature 98.8 F Pulse Rate 87 Respiratory Rate 18 Blood Pressure 156/90 Pulse Oximetry 97 Oxygen Delivery Method Room Air Room Air
[2024-07-27 19:10] VITALS: BP 140/98; PULSE 94; RESP 16; TEMP 36.3; O2SAT 96
[2024-07-27 20:34] LABS: Bilirubin Urine Negative (Negative); Blood Urine Negative (Negative); Glucose Urine UA Negative (Normal); Ketones Urine Negative (Negative); Leukocyte Esterase Urine Negative (Negative); Nitrate Urine Negative (Negative); Protein Urine Negative (Negative); Specific Gravity, Urine 1.004 (1.005-1.030); Urine Appearance Clear (CLEAR); Urine Color Yellow (Yellow); Urobilinogen Urine 0.2 mg/dL (Negative); pH Urine 6.5 (5-7)
[2024-07-27 20:39] LABS: Add Urine Microscopic? YES; Bacteria Urine None Seen /hpf; Hyaline Casts Urine 0-4 /lpf; RBC Urine 0-2 /hpf (0-2); Squamous Epithelial Cell Urine 0-5 /hpf (0-5); WBC Urine 0-5 /hpf (0-5)
[2024-07-27 20:59] LABS: Amphetamines Screen Urine Negative (Negative); Barbiturates Screen Urine Negative (Negative); Benzodiazepines Screen Urine Negative (Negative); Cocaine Screen Urine Negative (Negative); Opiate Screen Urine Positive (Negative); PCP Screen Urine Negative (Negative); THC Screen Urine Positive (Negative)
[2024-07-27] MEDS: trazodone 50 mg Tablet PO (23:01)
[2024-07-28] MEDS: acetaminophen 325 mg Tablet 650 MG PO ×3 (03:21→20:14)
[2024-07-28 06:00] VITALS: BP 160/80; PULSE 88; RESP 18; TEMP 37; O2SAT 99
[2024-07-28] MEDS: levothyroxine 100 mcg Tablet PO (06:00)
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
[2024-07-28] MEDS: meloxicam 7.5 mg tablet 15 MG PO (08:58)
[2024-07-28] MEDS: fluoxetine 20 mg Capsule 80 MG PO (08:58)
[2024-07-28 14:00] VITALS: BP 163/98; PULSE 95; RESP 16; TEMP 36.6; O2SAT 94
[2024-07-28 19:35] VITALS: BP 156/85; PULSE 66; RESP 18; TEMP 36.4; O2SAT 97
[2024-07-28] MEDS: trazodone 50 mg Tablet PO (20:14)
[2024-07-28] MEDS: hyDROXYzine 25 mg Capsule 50 MG PO (20:14)
--- NOTE | 2024-07-28 20:14 | PC.NURSE ---
PRN MEDS PATIENT VERY TEARFUL TONIGHT. STATES SHE IS VERY TIRED AND HURTING ALL OVER. TYLENOL 650MG FOR PAIN RATED 9/10 GIVEN. TRAZODONE 50MG FOR SLEEP AND VISTARIL 50MG ALSO GIVEN FOR ANXIETY.
[2024-07-29] MEDS: levothyroxine 100 mcg Tablet PO (03:42)
[2024-07-29] MEDS: acetaminophen 325 mg Tablet 650 MG PO ×3 (03:42→21:19)
[2024-07-29 06:00] VITALS: BP 159/98; PULSE 90; RESP 17; TEMP 36.5; O2SAT 96
[2024-07-29] MEDS: fluoxetine 20 mg Capsule 80 MG PO (09:06)
[2024-07-29] MEDS: meloxicam 7.5 mg tablet 15 MG PO (09:06)
--- NOTE | 2024-07-29 13:29 | P.NPUPN_ITS ---
Subjective NPU 2 Subjective: 58-year-old female with a past history o f borderline personality disorder, major depressive disorder and PTSD admitted with paranoia and suicidal ideation. Patient continued to appear somewhat confused on the unit. She had reported that she had felt that she needed to be here. She did not endorse having thoughts of hurting herself. She had continued to state that others were not helping her here. She had appeared quite confused on the unit. She had minimized any recent drug use and her urine drug screen was negative for any illicit drugs other than opiates. She remained confused here on the unit, refusing medications stating that they were not the same. Mental Status Exam 2 MSE Comments: This is a thin white female in hospital scrubs with poor grooming and fair eye contact. No abnormal involuntary motor movements except for mild psychomotor agitation. She is hard of hearing requiring clear and directed speech. She was cooperative with exam in moderate distress. Speech was slightly decreased in rate and increased in volume. Mood described as upset. Her affect is odd and subdued. Thought process: mostly linear and logical although she lost her train of thought easily.?Thought content: patient denies homicidal ideation and suicidal ideation. There were no delusions reported or noted and she did not appear to be attending to internal stimuli. She endorsed occasional auditory hallucinations and she denied visual hallucinations. There was evidence of paranoia and distrust. Attention and concentration: were poor. ?Recent and remote memory were difficult to assess. She is alert and oriented x3. ? Insight and judgment are limited. ? Impulse control is poor. Vitals/I&O/Wt Last Vital Signs Temp 97.7 F 07/29/24 06:00 Pulse 90 07/29/24 06:00 Resp 17 07/29/24 06:00 BP 159/98 07/29/24 06:00 Pulse Ox 96 07/29/24 06:00 O2 Del Method Room Air 07/29/24 06:00 Weight last 48 hrs Weight 60.691 kg Data NPU 07/27/24 10:44 07/27/24 10:44 A&P Assessment and plan (1) Post-traumatic stress disorder, chronic: (2) Major depressive disorder, recurrent severe without psychotic features: (3) Methamphetamine use disorder, severe, in sustained remission: Plan 58-year-old female presents on a hold with reports of suicidal ideation with a past history of depression along with polysubstance abuse. There appeared to be concerns of psychosis on initial arrival although the patient does not appear to be psychotic at this time. #1.? Engage patient in individual milieu and group therapy. #2?? Recommend sober living treatment at the highest level of care to which the patient is willing to commit #3???Restart outpatient medications. Add Seroquel 100mg at night. #4?? TO-15 minute checks? #5?? Evaluate under context of 96 hour hold. PDMP PDMP Reviewed: Not Reviewed Involuntary Hold Information 2 Hold Status: Legal Status: 96 Hour Hold Date/Time Hold Expires: 08/02/24 @11:13 96 Hour Hold: 96 Hour Involuntary Admission: No Attestations NPU 2 Medical Necessity Statement*: Inpatient hospitalization is medically necessary and deemed to ?be ?the clinically appropriate intervention ?at this time.? We will monitor/initiate medications and make changes as indicated.? The patient?s likely length of stay 5-7 days. Coding Level of Care Code Acute Code for Chg Fwd Diagnoses Post-traumatic stress disorder, chronic F43.12 Major depressive disorder, recurrent severe without psychotic features F33.2 Methamphetamine use disorder, severe, in sustained remission F15.21
[2024-07-29 13:49] VITALS: BP 168/98; PULSE 77; RESP 18; TEMP 36.5; O2SAT 93
--- NOTE | 2024-07-29 17:50 | PC.NURSE ---
Pt has been refusing to take scheduled meds at the scheduled times today. Pt stated that she has her own reasons when asked why. This nurse encouraged pt to please be med compliant.
[2024-07-29 20:27] VITALS: BP 145/92; PULSE 77; RESP 16; TEMP 36.6; O2SAT 94
[2024-07-29] MEDS: quetiapine XR (24HR) 50 mg Tablet 100 MG PO (21:18)
[2024-07-29] MEDS: trazodone 50 mg Tablet PO (21:19)
[2024-07-30] MEDS: levothyroxine 100 mcg Tablet PO (05:56)
[2024-07-30 06:00] VITALS: BP 150/97; PULSE 95; RESP 18; TEMP 36.3; O2SAT 98
[2024-07-30] MEDS: meloxicam 7.5 mg tablet 15 MG PO (07:49)
[2024-07-30] MEDS: fluoxetine 20 mg Capsule 80 MG PO (07:49)
[2024-07-30 14:00] VITALS: BP 148/74; PULSE 78; RESP 16; TEMP 37; O2SAT 98
--- NOTE | 2024-07-30 14:21 | P.NPUPN_ITS ---
Subjective NPU 2 Subjective: Patient presented today reporting that things are going okay. She endorsed that she was having significant difficulties with her emotions and that she came to the hospital because she was overwhelmed and did not know what to do. She reports that any reports that she was trying to get discharged were incorrect and she was tearful and worried about whether she would be able to get herself back to normal. We discussed continuing to monitor and make changes to medication. Mental Status Exam 2 MSE Comments: This is an overweight white female in hospital scrubs with limited grooming and but adequate eye contact. No abnormal movements except for psychomotor agitation. She is hard of hearing requiring clear and directed speech and significant repetition before she understands. Cooperative with exam in mild to moderate distress. Speech was slightly decreased rate and volume. Mood described as overwhelmed, affect is congruent, tearful and anxious.? Thought process: linear and logical.?Thought content: patient denies homicidal ideation, no delusions reported or noted and did not appear to be attending to internal stimuli. Suicidal thoughts present, no thoughts of violence or aggression against others, possible auditory hallucinations ( Mom, Mom ), paranoia, mood swings, forgetfulness, restlessness, irritability. She denied visual hallucinations. Attention and concentration: intact.??Memory appeared mostly reliable. She is alert and oriented times 3. ? Insight and judgment limited. ? Impulse control is impaired. Vitals/I&O/Wt Last Vital Signs Temp 97.4 F L 07/30/24 06:00 Pulse 95 07/30/24 06:00 Resp 18 07/30/24 06:00 BP 150/97 07/30/24 06:00 Pulse Ox 98 07/30/24 06:00 O2 Del Method Room Air 07/30/24 06:00 Data NPU 07/27/24 10:44 07/27/24 10:44 A&P Assessment and plan (1) Panic attacks: (2) Major depressive disorder: (3) Depression with suicidal ideation: (4) Suicidal ideation: Plan This is a 58-year-old female presents on a hold with reports of suicidal ideation with a past history of depression along with polysubstance abuse. There appeared to be concerns of psychosis but it is unclear if she is actively psychotic at this time. 1. Continue current medication including the Seroquel 100 mg which was added. 2. Obtain collateral information. 3. Encourage individual, group and milieu therapy 4. Continue q-15 minute check for safety 5. Recommend sober living treatment at the highest level of care to which the patient is willing to 6. Evaluate against the backdrop of the 96-hour hold. PDMP PDMP Reviewed: Not Reviewed Involuntary Hold Information 2 Hold Status: Legal Status: 96 Hour Hold Date/Time Hold Expires: 08/02/24 @11:13 96 Hour Hold: 96 Hour Involuntary Admission: No Attestations NPU 2 Medical Necessity Statement*: Inpatient hospitalization is medically necessary and deemed to ?be ?the clinically appropriate intervention ?at this time.? We will monitor/initiate medications and make changes as indicated.? The patient?s likely length of stay 4-6 days. Coding Level of Care Code Acute Code for g Fwd Diagnoses Panic attacks F41.0 Mild episode of recurrent major depressive disorder F33.0 Major depression recurrence: recurrent Active/Remission status: currently active Major depression episode severity: mild Depression with suicidal ideation F32.A; R45.851 Suicidal ideation R45.851
[2024-07-30 20:44] VITALS: BP 157/100; PULSE 66; RESP 22; TEMP 36.3; O2SAT 96
[2024-07-31 06:00] VITALS: BP 165/101; PULSE 92; RESP 21; TEMP 36.3; O2SAT 98
[2024-07-31] MEDS: levothyroxine 100 mcg Tablet PO (06:04)
[2024-07-31] MEDS: fluoxetine 20 mg Capsule 80 MG PO (09:49)
[2024-07-31] MEDS: meloxicam 7.5 mg tablet 15 MG PO (09:49)
[2024-07-31 14:00] VITALS: PULSE 72; RESP 18; TEMP 36.7; O2SAT 98
[2024-07-31 15:54] VITALS: BP 176/80
[2024-07-31 15:56] VITALS: BP 176/80
[2024-07-31] MEDS: cloNIDine 0.1 mg Tablet PO ×2 (15:56→20:47)
--- NOTE | 2024-07-31 18:24 | PC.NURSE ---
Pt doesn't want to take her scheduled Seroquel 100mg at 1800, pt wants to wait until later to take her dose.
[2024-07-31] MEDS: quetiapine XR (24HR) 50 mg Tablet 100 MG PO (20:47)
[2024-07-31 21:30] VITALS: BP 167/96; PULSE 68; RESP 16; TEMP 36.5; O2SAT 97
--- NOTE | 2024-07-31 21:44 | P.NPUPN_ITS ---
Subjective NPU 2 Subjective: Patient presents today reporting that she is doing a little better. He does continue to isolate per staff reports and direct observation. She is likely getting out of her room a little bit more. She endorses that she now has her own place which is different from the last time she was seen by this commercial lines underwriter. She reports that her daughter also has her own place. She reports that where she will return when she is discharged. She reports that she feels like she is getting a little better and denied any side effects to the medication. Mental Status Exam 2 MSE Comments: This is an overweight white female in hospital scrubs with limited grooming and but adequate eye contact. No abnormal movements except for psychomotor agitation. She is hard of hearing requiring clear and directed speech and significant repetition before she understands. Cooperative with exam in mild to moderate distress. Speech was slightly decreased rate and volume. Mood described as overwhelmed, affect is congruent, tearful and anxious.? Thought process: linear and logical.?Thought content: patient denies homicidal ideation, no delusions reported or noted and did not appear to be attending to internal stimuli. Suicidal thoughts present, no thoughts of violence or aggression against others, possible auditory hallucinations ( Mom, Mom ), paranoia, mood swings, forgetfulness, restlessness, irritability. She denied visual hallucinations. Attention and concentration: intact.??Memory appeared mostly reliable. She is alert and oriented times 3. ? Insight and judgment limited. ? Impulse control is impaired. Vitals/I&O/Wt Last Vital Signs Temp 97.7 F 07/31/24 21:30 Pulse 68 07/31/24 21:30 Resp 16 07/31/24 21:30 BP 167/96 07/31/24 21:30 Pulse Ox 97 07/31/24 21:30 O2 Del Method Room Air 07/31/24 14:00 Data NPU 07/27/24 10:44 07/27/24 10:44 A&P Assessment and plan (1) Panic attacks: (2) Major depressive disorder: (3) Depression with suicidal ideation: (4) Suicidal ideation: Plan This is a 58-year-old female presents on a hold with reports of suicidal ideation with a past history of depression along with polysubstance abuse. There appeared to be concerns of psychosis but it is unclear if she is actively psychotic at this time. 1. Continue current medication including the Seroquel 100 mg which was added. 2. Obtain collateral information. 3. Encourage individual, group and milieu therapy 4. Continue q-15 minute check for safety 5. Recommend sober living treatment at the highest level of care to which the patient is willing to 6. Evaluate against the backdrop of the 96-hour hold. PDMP PDMP Reviewed: Not Reviewed Involuntary Hold Information 2 Hold Status: Legal Status: 96 Hour Hold Date/Time Hold Expires: 08/02/24 @11:13 96 Hour Hold: 96 Hour Involuntary Admission: No Attestations NPU 2 Medical Necessity Statement*: Inpatient hospitalization is medically necessary?the clinically appropriate intervention?at this time.? We will monitor/initiate medications and make changes as indicated.? The patient?s likely length of stay 3-5 days. Coding Level of Care Code Acute Code for Chg Fwd Diagnoses Panic attacks F41.0 Mild episode of recurrent major depressive disorder F33.0 Major depression recurrence: recurrent Active/Remission status: currently active Major depression episode severity: mild Depression with suicidal ideation F32.A; R45.851 Suicidal ideation R45.851
[2024-08-01] MEDS: levothyroxine 100 mcg Tablet PO (05:19)
[2024-08-01 06:00] VITALS: BP 157/94; PULSE 78; RESP 16; TEMP 36.6; O2SAT 94
--- NOTE | 2024-08-01 07:38 | P.NPUPN_ITS ---
Subjective NPU 2 Subjective: Patient presented today reporting that things are going a little better. She is taking her medication as prescribed and denied any concerns or any side effects. We discussed working with the social work team tomorrow to start looking at when she might be discharged and making sure she has appropriate follow-up. Mental Status Exam 2 MSE Comments: This is an overweight white female in hospital scrubs with limited grooming and but adequate eye contact. No abnormal movements except for psychomotor agitation. She is hard of hearing requiring clear and directed speech and significant repetition before she understands. Cooperative with exam in mild to moderate distress. Speech was slightly decreased rate and volume. Mood described as overwhelmed, affect is congruent, tearful and anxious.? Thought process: linear and logical.?Thought content: patient denies homicidal ideation, no delusions reported or noted and did not appear to be attending to internal stimuli. Suicidal thoughts present, no thoughts of violence or aggression against others, possible auditory hallucinations ( Mom, Mom ), paranoia, mood swings, forgetfulness, restlessness, irritability. She denied visual hallucinations. Attention and concentration: intact.??Memory appeared mostly reliable. She is alert and oriented times 3. ? Insight and judgment limited. ? Impulse control is impaired. Vitals/I&O/Wt Last Vital Signs Temp 97.9 F 08/01/24 06:00 Pulse 78 08/01/24 06:00 Resp 16 08/01/24 06:00 BP 157/94 08/01/24 06:00 Pulse Ox 94 08/01/24 06:00 O2 Del Method Room Air 07/31/24 14:00 Weight last 48 hrs Weight 61.507 kg Data NPU 07/27/24 10:44 07/27/24 10:44 A&P Assessment and plan (1) Panic attacks: (2) Major depressive disorder: (3) Depression with suicidal ideation: (4) Suicidal ideation: Plan This is a 58-year-old female presents on a hold with reports of suicidal ideation with a past history of depression along with polysubstance abuse. There appeared to be concerns of psychosis but it is unclear if she is actively psychotic at this time. 1. Continue current medication including the Seroquel 100 mg which was added. 2. Obtain collateral information. 3. Encourage individual, group and milieu therapy 4. Continue q-15 minute check for safety 5. Recommend sober living treatment at the highest level of care to which the patient is willing to 6. Evaluate against the backdrop of the 96-hour hold. PDMP PDMP Reviewed: Not Reviewed Involuntary Hold Information 2 Hold Status: Legal Status: 96 Hour Hold Date/Time Hold Expires: 08/02/24 @11:13 96 Hour Hold: 96 Hour Involuntary Admission: No Attestations NPU 2 Medical Necessity Statement*: Inpatient hospitalization is medically necessary?the clinically appropriate intervention?at this time.? We will monitor/initiate medications and make changes as indicated.? The patient?s likely length of stay 2-4 days. Coding Level of Care Code Acute Code for Chg Fwd Diagnoses Panic attacks F41.0 Mild episode of recurrent major depressive disorder F33.0 Major depression recurrence: recurrent Active/Remission status: currently active Major depression episode severity: mild Depression with suicidal ideation F32.A; R45.851 Suicidal ideation R45.851
[2024-08-01 14:00] VITALS: BP 163/79; PULSE 81; RESP 18; O2SAT 97
[2024-08-01] MEDS: meloxicam 7.5 mg tablet 15 MG PO (14:17)
[2024-08-01] MEDS: fluoxetine 20 mg Capsule 80 MG PO (14:17)
[2024-08-01] MEDS: quetiapine XR (24HR) 50 mg Tablet 100 MG PO (17:44)
[2024-08-01] MEDS: nicotine 2 mg Gum BUCCAL (18:31)
[2024-08-01 22:00] VITALS: BP 135/91; PULSE 77; RESP 18; O2SAT 96
[2024-08-02 06:00] VITALS: BP 160/99; PULSE 87; RESP 18; O2SAT 95
[2024-08-02] MEDS: levothyroxine 100 mcg Tablet PO (06:03)
[2024-08-02] MEDS: cloNIDine 0.1 mg Tablet PO (06:08)
[2024-08-02] MEDS: meloxicam 7.5 mg tablet 15 MG PO (09:02)
[2024-08-02] MEDS: fluoxetine 20 mg Capsule 80 MG PO (09:02)
[2024-08-02 14:00] VITALS: BP 165/100; PULSE 83; RESP 16; TEMP 36.3; O2SAT 99
[2024-08-02] MEDS: quetiapine XR (24HR) 50 mg Tablet 100 MG PO (17:01)
[2024-08-02] MEDS: acetaminophen 325 mg Tablet 650 MG PO (17:01)
--- NOTE | 2024-08-02 17:59 | P.NPUPN_ITS ---
Subjective NPU 2 Subjective: Patient presented today reporting that things are going fine. She reports feeling optimistic about things starting to look better. She reports that she is sleeping better and that that was a major issue. We discussed starting to look at discharge and figuring out what else is necessary for her to feel stable and optimistic about leaving the hospital. She was very focused on low self- esteem and not feeling smart. As she showed a book that she was reading that she could comprehend but she was hiding from other people because it was a children's book. She denied any side effects to the medication. Mental Status Exam 2 MSE Comments: This is an overweight white female in hospital scrubs with limited grooming and but adequate eye contact. No abnormal movements except for psychomotor agitation. She is hard of hearing requiring clear and directed speech and significant repetition before she understands. Cooperative with exam in mild to moderate distress. Speech was slightly decreased rate and volume. Mood described as maybe a little better, affect is congruent, tearful and anxious but slightly less tearful and labile.? Thought process: linear and logical.?Thought content: patient denies homicidal ideation, no delusions reported or noted and did not appear to be attending to internal stimuli. Suicidal thoughts present, no thoughts of violence or aggression against others, possible auditory hallucinations ( Mom, Mom ), paranoia, mood swings, forgetfulness, restlessness, irritability. She denied visual hallucinations. Attention and concentration: intact.??Memory appeared mostly reliable. She is alert and oriented times 3. ? Insight and judgment limited. ? Impulse control is impaired. Vitals/I&O/Wt Last Vital Signs Temp 97.4 F L 08/02/24 19:22 Pulse 100 08/02/24 19:22 Resp 18 08/02/24 19:22 BP 150/92 08/02/24 19:22 Pulse Ox 96 08/02/24 19:22 O2 Del Method Room Air 08/02/24 19:22 Weight last 48 hrs Weight 61.507 kg Data NPU 07/27/24 10:44 07/27/24 10:44 A&P Assessment and plan (1) Panic attacks: (2) Major depressive disorder: (3) Depression with suicidal ideation: (4) Suicidal ideation: Plan This is a 58-year-old female presents on a hold with reports of suicidal ideation with a past history of depression along with polysubstance abuse. There appeared to be concerns of psychosis but it is unclear if she is actively psychotic at this time. 1. Continue current medication including the Seroquel 100 mg which was added. 2. Obtain collateral information. 3. Encourage individual, group and milieu therapy 4. Continue q-15 minute check for safety 5. Recommend sober living treatment at the highest level of care to which the patient is willing to 6. Evaluate against the backdrop of the 96-hour hold. PDMP PDMP Reviewed: Not Reviewed Involuntary Hold Information 2 Hold Status: Legal Status: 96 Hour Hold Date/Time Hold Expires: voluntary 96 Hour Hold: 96 Hour Involuntary Admission: No Attestations NPU 2 Medical Necessity Statement*: Inpatient hospitalization is medically necessary?the clinically appropriate intervention?at this time.? We will monitor/initiate medications and make changes as indicated.? The patient?s likely length of stay 1-3 days. Coding Level of Care Code Acute Code for Chg Fwd Diagnoses Panic attacks F41.0 Mild episode of recurrent major depressive disorder F33.0 Major depression recurrence: recurrent Active/Remission status: currently active Major depression episode severity: mild Depression with suicidal ideation F32.A; R45.851 Suicidal ideation R45.851
[2024-08-02 19:22] VITALS: BP 150/92; PULSE 100; RESP 18; TEMP 36.3; O2SAT 96
--- NOTE | 2024-08-02 21:41 | PC.NURSE ---
Patient requesting stool softener to be changed to be scheduled instead of as needed , and that the powder stuff she takes at home be added. Colace changed to scheduled and Candelaria-lax added to daily meds.
[2024-08-03 06:00] VITALS: BP 165/95; PULSE 80; RESP 18; O2SAT 96
[2024-08-03] MEDS: levothyroxine 100 mcg Tablet PO ×2 (06:18→09:34)
[2024-08-03] MEDS: fluoxetine 20 mg Capsule 80 MG PO (09:34)
[2024-08-03] MEDS: docusate sodium 100 mg Capsule 200 MG PO (09:34)
[2024-08-03] MEDS: polyethylene glycol 3350 Pkt 17 gm PO (09:34)
[2024-08-03] MEDS: meloxicam 7.5 mg tablet 15 MG PO (09:35)
[2024-08-03 14:00] VITALS: BP 183/96; PULSE 83; RESP 16; TEMP 36.6; O2SAT 98
[2024-08-03] MEDS: quetiapine XR (24HR) 50 mg Tablet 100 MG PO (17:34)
[2024-08-03] MEDS: hyDROXYzine 25 mg Capsule 50 MG PO (17:34)
--- NOTE | 2024-08-03 17:46 | P.NPUPN_ITS ---
Subjective NPU 2 Subjective: Patient presented today reporting that she is doing all right. She reports mild improvement in how she is feeling and working with the social work team on making sure she has some supports after discharge. She reports that this happens from time to time but she does not always adherent to her medications. She denied any side effects to her medication and reported a plan to be more consistent. Mental Status Exam 2 MSE Comments: This is an overweight white female in hospital scrubs with limited grooming and but adequate eye contact. No abnormal movements except for psychomotor agitation. She is hard of hearing requiring clear and directed speech and significant repetition before she understands. Cooperative with exam in mild to moderate distress. Speech was slightly decreased rate and volume. Mood described as maybe a little better, affect is congruent, tearful and anxious but slightly less tearful and labile.? Thought process: linear and logical.?Thought content: patient denies homicidal ideation, no delusions reported or noted and did not appear to be attending to internal stimuli. Suicidal thoughts present, no thoughts of violence or aggression against others, possible auditory hallucinations ( Mom, Mom ), paranoia, mood swings, forgetfulness, restlessness, irritability. She denied visual hallucinations. Attention and concentration: intact.??Memory appeared mostly reliable. She is alert and oriented times 3. ? Insight and judgment limited. ? Impulse control is impaired. Vitals/I&O/Wt Last Vital Signs Temp 97.8 F 08/03/24 19:36 Pulse 83 08/03/24 19:36 Resp 18 08/03/24 19:36 BP 147/90 08/03/24 19:36 Pulse Ox 97 08/03/24 19:36 O2 Del Method Room Air 08/03/24 19:36 Data NPU 07/27/24 10:44 07/27/24 10:44 A&P Assessment and plan (1) Panic attacks: (2) Major depressive disorder: (3) Depression with suicidal ideation: (4) Suicidal ideation: Plan This is a 58-year-old female presents on a hold with reports of suicidal ideation with a past history of depression along with polysubstance abuse. There appeared to be concerns of psychosis but it is unclear if she is actively psychotic at this time. 1. Continue current medication including the Seroquel 100 mg which was added. 2. Obtain collateral information. 3. Encourage individual, group and milieu therapy 4. Continue q-15 minute check for safety 5. Recommend sober living treatment at the highest level of care to which the patient is willing to 6. Evaluate against the backdrop of the 96-hour hold. PDMP PDMP Reviewed: Not Reviewed Involuntary Hold Information 2 Hold Status: Legal Status: 96 Hour Hold Date/Time Hold Expires: voluntary 96 Hour Hold: 96 Hour Involuntary Admission: No Attestations NPU 2 Medical Necessity Statement*: Inpatient hospitalization is medically necessary?the clinically appropriate intervention?at this time.? We will monitor/initiate medications and make changes as indicated.? The patient?s likely length of stay 1-3 days. Coding Level of Care Code Acute Code for g Fwd Diagnoses Panic attacks F41.0 Mild episode of recurrent major depressive disorder F33.0 Major depression recurrence: recurrent Active/Remission status: currently active Major depression episode severity: mild Depression with suicidal ideation F32.A; R45.851 Suicidal ideation R45.851
[2024-08-03 19:36] VITALS: BP 147/90; PULSE 83; RESP 18; TEMP 36.6; O2SAT 97
[2024-08-04 06:00] VITALS: BP 148/86; PULSE 75; RESP 18; TEMP 36.6; O2SAT 97
[2024-08-04] MEDS: levothyroxine 100 mcg Tablet PO (06:18)
[2024-08-04] MEDS: docusate sodium 100 mg Capsule 200 MG PO (08:19)
[2024-08-04] MEDS: fluoxetine 20 mg Capsule 80 MG PO (08:19)
[2024-08-04] MEDS: polyethylene glycol 3350 Pkt 17 gm PO (08:20)
[2024-08-04] MEDS: meloxicam 7.5 mg tablet 15 MG PO (08:20)
[2024-08-04] MEDS: ibuprofen 600 mg Tablet PO (08:20)
[2024-08-04 14:00] VITALS: BP 157/93; PULSE 90; RESP 17; TEMP 36.6; O2SAT 94
[2024-08-04 14:21] VITALS: BP 157/93; PULSE 90; RESP 17; TEMP 36.6; O2SAT 94
== END 2024-08-04 15:27 | disposition home or self-care (01) | DRG 885 ==
LOC: ER 12:40 → NP 12:54
PROVIDERS: Admitting Provider Psychiatry & Neurology Psychiatry; Emergency Provider Physician Assistant; PCP Family Medicine; Visit Provider Psychiatry & Neurology Psychiatry
DX: F33.2 Major depressive disorder, recurrent severe without psychotic features (principal); R45.851 Suicidal ideations; F43.12 Post-traumatic stress disorder, chronic; F15.21 Other stimulant dependence, in remission; F17.200 Nicotine dependence, unspecified, uncomplicated; E03.9 Hypothyroidism, unspecified; F41.0 Panic disorder [episodic paroxysmal anxiety]
CPT/HCPCS: 36415; 71045; 80053; 80306; 80307; 81001; 83690; 84443; 85025; 97150; 97165; 99285; J9999

== ENCOUNTER → 2024-09-14 13:58 | Outpatient (BNVA) | payer OTHER, SELFPAY ==
[2024-05-28 15:17] VITALS: BP 129/90; BMI 22.6
== END ==
PROVIDERS: PCP Family Medicine; Visit Provider Nurse Practitioner Psychiatric/Mental Health
DX: Z79.899 Other long term (current) drug therapy (principal)
CPT/HCPCS: 83036

== ENCOUNTER → 2024-09-16 10:22 | Outpatient (BNVA) | payer MEDICAID, SELFPAY ==
[2024-05-28 15:17] VITALS: BP 129/90; BMI 22.6
== END ==
PROVIDERS: PCP Family Medicine; Visit Provider Registered Nurse Neonatal Intensive Care
DX: R39.9 Unspecified symptoms and signs involving the genitourinary system (principal)
CPT/HCPCS: 81000; 87086

== ENCOUNTER 2024-10-28 21:39 | Inpatient (IN) | payer MEDICAID, SELFPAY ==
[2024-05-28 15:17] VITALS: BP 129/90; BMI 22.6
[2024-10-28 21:44] VITALS: BP 138/79; PULSE 79; RESP 19; TEMP 36.9; O2SAT 98; BMI 21.0
--- OUTSIDE RECORDS SUMMARY | 2024-10-28 21:44 | XMS_ITS | Patient Health Record ---
Author Organization [facility] Address [address] [place] [address] Care Team Providers Care Elevator Service Technician Name Role Phone Sarah Tameka Primary Care Provider Chel Astudillo Unavailable [phone] Migration, Provider Unavailable Unavailable Allergies Allergen (clinical drug ingredient) Drug/Non Drug Allergy documented on EMR Reaction Allergy Type Onset Date Status codeine Codeine Unknown Drug Allergy Active Substance with sulfonamide structure and antibacterial mechanism of action (substance) Sulfa Antibiotics Unknown Drug Allergy Active Results Component Value Reference Range Flag Notes Urine Drug Screen (cup read) - [id number] Reviewed date:06/22/2024 02:50:34 PM Interpretation: Performing Lab: Notes/Report: AMP - KEYSHAWN - BUP - BZO - MDMA - OPI - PCP - OXY - MTD - MAMP - Tox Results Reviewed date:06/02/2024 11:39:45 AM Interpretation: Performing Lab: Notes/Report: Urine Drug Screen (cup read) - [id number] Reviewed date:05/25/2024 02:05:00 PM Interpretation: Performing Lab: Notes/Report: AMP - KEYSHAWN - BUP - BZO + MDMA - OPI - PCP - OXY - MTD - MAMP - Urine Confirmation Panel (in strument) - [id number] Reviewed date:06/02/2024 11:40:02 AM Interpretation: Performing Lab: Notes/Report: 6-Acetylmorphine 0 <6 ng/mL N This pritesh t was developed and its performance characteristics determined by [facility]. It has not been cleared or approved by the U.S. Food and Drug Administration. 7-Aminoclonazepam 0 <60 ng/mL N This te st was developed and its performance characteristics determined by [facility]. It has not been cleared or approved by the U.S. Food and Drug Administration. Alprazolam 0 <60 ng/mL N This test was developed and its performance characteristics determined by [facility]. It has not been cleared or approved by the U.S. Food and Drug Administration. Amphetamine 0 <75 ng/mL N This test was developed and its performance characteristics determined by [facility]. It has not been cleared or approved by the U.S. Food and Drug Administration. aOH-Alprazolam 0 <60 ng/mL N This test was developed and its performance characteristics determined by [facility]. It has not been cleared or approved by the U.S. Food and Drug Administration. Buprenorphine 0.0 <7.5 ng/mL N This test w as developed and its performance characteristics determined by [facility]. It has not been cleared or approved by the U.S. Food and Drug Administration. Norbuprenorphine 0.0 <37.5 ng/mL N This te st was developed and its performance characteristics determined by [facility]. It has not been cleared or approved by the U.S. Food and Drug Administration. Carisoprodol 0 <75 ng/mL N This test wa s developed and its performance characteristics determined by [facility]. It has not been cleared or approved by the U.S. Food and Drug Administration. Codeine 0 <75 ng/mL N This test was developed and its performance characteristics determined by [facility]. It has not been cleared or approved by the U.S. Food and Drug Administration. EDDP 0 <75 ng/mL N This test was developed and its performance characteristics determined by [facility]. It has not been cleared or approved by the U.S. Food and Drug Administration. Fentanyl 0 <6 ng/mL N This test was developed and its performance characteristics determined by [facility]. It has not been cleared or approved by the U.S. Food and Drug Administration. Hydrocodone 0 <75 ng/mL N This test was developed and its performance characteristics determined by [facility]. It has not been cleared or approved by the U.S. Food and Drug Administration. Hydromorphone 0 <75 ng/mL N This test w as developed and its performance characteristics determined by [facility]. It has not been cleared or approved by the U.S. Food and Drug Administration. Lorazepam 0 <60 ng/mL N This test was developed and its performance characteristics determined by [facility]. It has not been cleared or approved by the U.S. Food and Drug Administration. MDMA 0 <75 ng/mL N This test was developed and its performance characteristics determined by [facility]. It has not been cleared or approved by the U.S. Food and Drug Administration. Meperidine 0.0 <37.5 ng/mL N This test was developed and its performance characteristics determined by [facility]. It has not been cleared or approved by the U.S. Food and Drug Administration. Meprobamate 0 <75 ng/mL N This test was developed and its performance characteristics determined by [facility]. It has not been cleared or approved by the U.S. Food and Drug Administration. Methamphetamine 41 <75 ng/mL N This test was developed and its performance characteristics determined by [facility]. It has not been cleared or approved by the U.S. Food and Drug Administration. Methadone 0 <75 ng/mL N This test was developed and its performance characteristics determined by [facility]. It has not been cleared or approved by the U.S. Food and Drug Administration. Morphine 0 <75 ng/mL N This test was developed and its performance characteristics determined by [facility]. It has not been cleared or approved by the U.S. Food and Drug Administration. Nordiazepam 0 <60 ng/mL N This test was developed and its performance characteristics determined by [facility]. It has not been cleared or approved by the U.S. Food and Drug Administration. Norfentanyl 0 <6 ng/mL N This test was developed and its performance characteristics determined by [facility]. It has not been cleared or approved by the U.S. Food and Drug Administration. Normeperidine 0.0 <37.5 ng/mL N This test was developed and its performance characteristics determined by [facility]. It has not been cleared or approved by the U.S. Food and Drug Administration. O-desmethyltramadol 11 <75 ng/mL N This test was developed and its performance characteristics determined by [facility]. It has not been cleared or approved by the U.S. Food and Drug Administration. Oxazepam 0 <60 ng/mL N This test was developed and its performance characteristics determined by [facility]. It has not been cleared or approved by the U.S. Food and Drug Administration. Oxycodone 0.0 <37.5 ng/mL N This test was developed and its performance characteristics determined by [facility]. It has not been cleared or approved by the U.S. Food and Drug Administration. Oxymorphone 0 <75 ng/mL N This test was developed and its performance characteristics determined by [facility]. It has not been cleared or approved by the U.S. Food and Drug Administration. Phencyclidine 0.0 <7.5 ng/mL N This test w as developed and its performance characteristics determined by [facility]. It has not been cleared or approved by the U.S. Food and Drug Administration. Tapentadol 6.8 <37.5 ng/mL N This test was developed and its performance characteristics determined by [facility]. It has not been cleared or approved by the U.S. Food and Drug Administration. Temazepam 0 <60 ng/mL N This test was developed and its performance characteristics determined by [facility]. It has not been cleared or approved by the U.S. Food and Drug Administration. Tramadol 12 <75 ng/mL N This test was developed and its performance characteristics determined by [facility]. It has not been cleared or approved by the U.S. Food and Drug Administration. Norhydrocodone 0 <75 ng/mL N This test was developed and its performance characteristics determined by [facility]. It has not been cleared or approved by the U.S. Food and Drug Administration. Noroxycodone 0 <38 ng/mL N This test wa s developed and its performance characteristics determined by [facility]. It has not been cleared or approved by the U.S. Food and Drug Administration. Pregabalin 0 <225 ng/mL N This test was developed and its performance characteristics determined by [facility]. It has not been cleared or approved by the U.S. Food and Drug Administration. Gabapentin 0 <225 ng/mL N This test was developed and its performance characteristics determined by [facility]. It has not been cleared or approved by the U.S. Food and Drug Administration. Benzoylecgonine 0.0 <37.5 ng/mL N This pritesh t was developed and its performance characteristics determined by [facility]. It has not been cleared or approved by the U.S. Food and Drug Administration. 4-Hydroxy Xylazine 0 <25 ng/mL N This t est was developed and its performance characteristics determined by [facility]. It has not been cleared or approved by the U.S. Food and Drug Administration. Reason For Referral Reason PT lumbosacral radic ulopathy evaluate and treat Diagnosis 1 Chronic pain syndrom e (G89.4) Referral Organization [facility] Referring Provider First Name Tameka Referring Provider Last Name Low Henderson Referring Provider Speciality Pain Medic ine Referred Provider [facility] Referred Provider Specialty Preventive M edicine Referral Priority Routine Reason eval and treat- 2x w eekly Diagnosis 1 Lumbosacral radiculo isidro (M54.17) Referral Organization [facility] Referring Provider First Name Chel Referring Provider Last Name Baudilio Referring Provider Speciality Pain Medic ine Referred Provider [facility] Referred Provider Specialty Physical The rapist Referral Priority Routine Medications Medication SIG (Take, Route, Frequency, Duration) Notes Start Date End Date Status FLUoxetine HCl 40 MG Capsule 1 capsule Orally Once a day Active Fluticasone Propionate Active Levothyroxine Sodium 100 MCG Capsule 1 capsule in the morning on an empty stomach Orally Once a day Active Methocarbamol 750 MG Tablet 1 tablet Orally 3 times a day; Duration: 30 days As needed Fill 30 days from previous RX 08/26/2024 11/24/2024 Active Meloxicam 15 MG Tablet 1 tablet Orally Once a day; Duration: 30 days As needed Fill 30 days from previous RX 08/26/2024 11/24/2024 Active Albuterol Sulfate (5 MG/ML) 0.5% Nebulization Solution as directed Inhalation Active Solifenacin Succinate 10 MG Tablet 1 tablet Orally Once a day Not-Taking Albuterol Sulfate Ac tive Colace 100 MG Capsule 1 capsule as needed Orally Once a day Active Cyclobenzaprine HCl 10 MG Tablet 1 tab Orally twice a day Active Meloxicam 15 MG Tablet 1 tablet Orally Once a day Active Omeprazole 20 MG Capsule Delayed Release 1 capsule 1/2 to 1 hour before morning meal Orally Once a day Active traZODone HCl 100 MG Tablet 1 tablet at bedtime Orally Once a day Active Gabapentin 300 MG Capsule 1 capsule Orally twice a day Not-Taking Social History Section Notes: current smoker current smoker current smoker current smoker Problems Problem Type SNOMED Code ICD Code Onset Dates Problem Status W/U Status Risk Notes Problem Chronic pain syndrome (088130471) Chronic pain syndrome (G89.4) Active confirmed Problem Myalgia (11416458) Myalgia (M79.10) Active confirmed Problem Lumbosacral radiculopathy (7279269) Lumbosacral radiculopathy (M54.17) Active confirmed Problem Enthesopathy of hip region (51879424) Greater trochanteric bursitis of right hip (M70.61) Active confirmed Vital Signs Height-cm 167.64 cm 08/26/2024 Weight-kg 63.5 kg 08/26/2024 Height 66 in 08/26/2024 Weight 140 lbs 08/26/2024 BMI 22.59 kg/m2 08/26/2024 Procedures Procedure Date Ordered Date Performed Result Body Sit e Inj. Major Joint/Bursa (Arth rocentesis, Aspiration, and/or Injection) w/ ultrasound guidance - 04/28/2024 04/28/2024 N/A Encounters Encounter Location Date Provider Diagnosis [facility] [address] [place] [address] 03/30/2024 Tameka Laughlin e Chronic pain syndrome G89.4 ; Lumbosacral radiculopathy M54.17 ; Greater trochanteric bursitis of right hip M70.61 and Myalgia M79.10 [facility] [address] 04/28/2024 Tameka Grantc e Greater trochanteric bursitis of right hip M70.61 [facility] [address] [place] [address] 05/25/2024 Tameka Laughlin e Chronic pain syndrome G89.4 ; Lumbosacral radiculopathy M54.17 ; Greater trochanteric bursitis of right hip M70.61 ; Myalgia M79.10 and Analgesic use Z79.899 [facility] [address] [place] [address] 06/22/2024 Tameka salgado Chronic pain syndrome G89.4 ; Lumbosacral radiculopathy M54.17 ; Greater trochanteric bursitis of right hip M70.61 ; Myalgia M79.10 and Analgesic use Z79.899 [facility] [address] [place] [address] 08/26/2024 Chel Astudillo Chronic pain syndrome G89.4 ; Lumbosacral radiculopathy M54.17 ; Greater trochanteric bursitis of right hip M70.61 ; Myalgia M79.10 and Analgesic use Z79.899 [facility] 0 01/10/2024 Provider Migration [facility] 0 01/11/2024 Provider Migration [facility] [address] [place] [address] 03/15/2024 Tameka salgado Assessments Encounter Date Diagnosis (ICD Code) Assessment Notes Treatment Notes Treatment Clinical Notes Section Notes 03/30/2024 Chronic pain syndrome (ICD-10 - G89.4) Ms. Patterson presents today with longstanding lumbosacral radiculopathy as well as greater trochanteric bursitis syndrome. We will start off with conservative management with physical therapy at this time. We will additionally get her scheduled for a right greater trochanteric bursa injection with ultrasound guidance. Ultrasound guidance is needed for needle localization as well as to decrease the risk of intertendonis and intravascular injection. RIsks and expectations of the procedure were discussed with the patient, and she agreed to proceed. I will see her back in 6-8 weeks to reevaluate how she is doing after PT. If in the future she would need an epidural, I suspect a right-sided L4/5 L5/S1 TFESI would be the most beneficial for her. 03/30/2024 Lumbosacral radiculopathy (ICD-10 - M54.17) 04/28/2024 Greater trochanteric bursitis of right hip (ICD-10 - M70.61) 05/25/2024 Chronic pain syndrome (ICD-10 - G89.4) Ms. Patterson is a patient with longstanding lumbosacral radiculopathy as well as greater trochanteric bursitis syndrome. She had a right GTB injection that upon palpation of her right GTB no longer elicits her pain consistent with 100% relief from her greater trochanteric bursitis. I recommended a right L4/5 L5/S1 TFESI for her, but she politely reclined and reports that she previously had epidural steroid injections at those levels from [facility] with no relief of her symptoms. She's not interested in repeating her physical therapy this year. We'll continue with Meloxicam 15 mg once daily. She had trialed this from her primary care physician. She looked visibly under the influence of substances today, will obtain a POC UDS on her, as she was requsting pain medication, I am concerned that she may have a component of marijuana use disorder, I currently do not recommend opiates at this time for managing her chronic pain as it raises concerns for her to be at risk of opioid use disorder. If in fact all of her epidurals did not give her meaningful relief, she would be a candidate for consideration of Spinal cord stimulation, unfortunately I do not have a facility where I can do the trial with her current insurance. I will reach out to [employer] inside technical sales representative to see if there is anyone in [place] who accepts her insurance that does SCS. 06/22/2024 Chronic pain syndrome (ICD-10 - G89.4) Ms. Patterson is a pleasant patient with lumbosacral radiculopathy and greater trochanteric bursitis. She had 100% relief of her right GTB injection. I've recommended a right L4/5 L5/S1 TFESI, but she politely declined. She previously had epidurals at [facility] with no relief of her symptoms. Unfortunately, that center has since closed down and we cannot access those records. She reports positives from a trial of Meloxicam and previously was taking Flexeril. We'll transition her to trial Methacarbamol. If no relief from her muscle spasms, we could consider a low dose Baclofen. In reference to the 05/25/24 note, I'm still concerned that she may have a component of marijuana use disorder. I do not currently recommend opioids at this time for managing her chornic pain for concerns about her risk of opioid use disorders. If in fact all of her epidurals did not give her meaningful relief, she would be a candidate for consideration of spinal cord stimulation. Unfortunately, I do not have a facility where I can do the trial with her current insurance. Dr. Patiño is moving to the area from [place] to [facility] and has experience in spinal cord stimulators. Per discussion with the [facility] spinal cord stimulator representatives, he'll most likely be taking Medicaid patients. When Jared Patiño establishes in the area, we'll consider a referral for him for this patient for consideration of a SCS trial. 08/26/2024 Chronic pain syndrome (ICD-10 - G89.4) I had a nice discussion with the patient today regarding her chronic pain complaints. She continues with lower back pain as well as radicular symptoms and some right hip pain occasionally. She feels she is doing well on the meloxicam and methocarbamol so she will continue that at present level. She continues to defer any sort of interventional procedures stating they have never helped her before. After discussion of treatment options, she does seem open to proceeding with some physical therapy so we will send that referral. She denies any other changes since we last seen her any untoward side effects of the medication. She will continue her medication at present level and return to clinic in 3 months to monitor for treatment effectiveness as well as to discuss her response to physical therapy. The patient continues with chronic pain requiring treatment to help restore function and improve quality of life. Patient is advised that best long-term goals include increased activity, core strengthening, proper weight management, coping strategies, avoidance of painful triggers, and targeted interventional therapy. We will see the patient for routine follow up in accordance with all clinic policies. We will continue to stress nonopioid treatment. 08/26/2024 Lumbosacral radiculopathy (ICD-10 - M54.17) 06/22/2024 Lumbosacral radiculopathy (ICD-10 - M54.17) 05/25/2024 Lumbosacral radiculopathy (ICD-10 - M54.17) 03/30/2024 Greater trochanteric bursitis of right hip (ICD-10 - M70.61) 03/30/2024 Myalgia (ICD-10 - M79.10) 05/25/2024 Greater trochanteric bursitis of right hip (ICD-10 - M70.61) 06/22/2024 Greater trochanteric bursitis of right hip (ICD-10 - M70.61) 08/26/2024 Greater trochanteric bursitis of right hip (ICD-10 - M70.61) 08/26/2024 Myalgia (ICD-10 - M79.10) 06/22/2024 Myalgia (ICD-10 - M79.10) 05/25/2024 Myalgia (ICD-10 - M79.10) 05/25/2024 Analgesic use (ICD-10 - Z79.899) URINE TESTING TODAY; POINT OF SERVICE Urine drug screening will be performed today to monitor compliance with opioid therapy or to serve as a baseline screen for a patient who may be a candidate for opioid therapy in the future, pending UDS results. We will monitor with in-office testing (rapid testing) today and review the results prior to dispensing prescription, as well. Patient has been made aware of this policy. 06/22/2024 Analgesic use (ICD-10 - Z79.899) 08/26/2024 Analgesic use (ICD-10 - Z79.899) 05/25/2024 Other Nicolasa Garcia, am scribing for Dr. Spicer. I, Dr. Spicer, personally performed the services described in this documentation, as scribed by Nicolasa Rowan, and it is both accurate and complete. Attempted to get records from [facility] in [place]. No working numbers. Unable to reach. I tried [phone], , . Dr. Spicer aware. 06/22/2024 Other Nicolasa Garcia, am scribing for Dr. Spicer. Dr. Nayan Garcia, personally performed the services described in this documentation, as scribed by Nicolasa Rowan, and it is both accurate and complete. Plan Of Treatment Next Appt Details Provider Name:Tameka Irizarry Syed, 11/23/2024 02:00:00 PM, [address] [place], [address], Insurance Providers Payer Name Payer Address Payer Phone Subscriber Number Group Number Insured Name Patient Relationship to Insured Coverage Start Date Coverage End Date [place] Medicaid [address] [place] [id number] Arcelia Patterson Self - patient is the insured Medical (General) History Medical History History ICD Code hypoglycemia bronchitis/emphysema depression arthritis constipation Surgical History Surgery Date(Month/Year) back surgeries shoulder surgery Hospitalization History Reason Date(Month/Year) See Surgical HX
[2024-10-28 22:08] LABS: Hematocrit 35.8 % (36-47); Hemoglobin 12.30 g/dL (11.27-16.99); Mean Corpuscular HGB Conc 34.4 g/dL (30-55); Mean Corpuscular Hemoglobin 31.1 pg (27-33); Mean Corpuscular Volume 90.6 fl (85-98); Nucleated Red Blood Cells % 0 %; Platelet Count 527 10^3/cmm (157-399); Red Blood Count 3.95 10^6/uL (3.85-5.65); White Blood Count 13.32 10^3/uL (3.29-11.43)
[2024-10-28 22:30] LABS: Alanine Aminotransferase 14 U/L (0-33); Albumin Level 4.1 g/dL (3.5-5.2); Alkaline Phosphatase 104 U/L (35-105); Anion Gap 15.9 (5-19); Aspartate Amino Transferase 16 U/L (0-32); Blood Urea Nitrogen 12 mg/dL (6-20); Calcium 9.2 mg/dL (8.5-10.5); Carbon Dioxide 26 mmol/L (22-29); Chloride 93 mmol/L (98-107); Creatinine Clr Calc Pharmacy 97.9694; Globulin 2.7 g/dL (1.3-4.6); Glucose 121 mg/dL (65-115); Osmolality Calculated 275 mOsm/kg (285-295); Sodium 132 mmol/L (136-145); Total Protein 6.8 g/dL (6.6-8.7)
--- NOTE | 2024-10-28 22:37 | ED.C_ITS ---
HPI - Psych 2 General: Chief Complaint: Psychiatric Symptoms Stated Complaint: SI Time Seen by Provider: 10/28/24 22:02 Source: patient Mode of arrival: ambulatory Limitations: no limitations History of Present Illness: Patient is a 58-year-old female who presents the emergency department planing of suicidal ideations. She has been seen here in the past, notably was admitted back in July of this year for suicidal ideations. She is making comments to me at this time stating that she would go to sleep in hopes that she does not wake up, has had specific plans but states that she cannot remember any of them at this time. Also is reporting pain all over. She is not reporting any homicidal ideations or hallucinations of any kind. She is not reporting any drug or alcohol use. She states that she has been taking her medications as prescribed and they have not been helping. No specific recent stress or significant events that would precipitate these thoughts, patient states they just came on gradually. Notably anxious at this time, though cooperative. MD complaint: suicidal ideation Duration: constant History of same: Yes Associated symptoms: Reports depression and suicidal ideation; Deny auditory hallucinations, visual hallucinations or homicidal ideation If self harm: admits thoughts of self harm and has plan Related Data Previous Rx's ?Medication ?Instructions ?Recorded meloxicam 15 mg tablet 15 mg PO DAILY #30 tabs 11/07 solifenacin 10 mg tablet 10 mg PO DAILY 90 days #90 t abs 05/26/24 ipratropium bromide 21 mcg (0.03 2 spray intranasal BI D #30 mL 06/10/24 %) nasal spray levothyroxine 100 mcg tablet 100 mcg PO DAILY #90 tabs 06/10/24 methenamine hippurate 1 gram tablet 1 g PO BID #180 ta bs 06/10/24 omeprazole 20 mg capsule,delayed 20 mg PO DAILY #90 ca ps 09/03/24 release clonidine HCl 0.1 mg tablet 0.1 mg PO BID PRN elevated BP #60 09/14/24 tabs fluoxetine 40 mg capsule 80 mg (2 x 40 mg) PO QAM #60 caps 09/14/24 hydroxyzine pamoate 25 mg capsule 50 mg (2 x 25 mg) PO BID PRN 09/14/24 Anxiety #60 caps quetiapine 50 mg tablet,extended 100 mg (2 x 50 mg) PO 1800 #60 tabs 09/14/24 release 24 hr nitrofurantoin 100 mg PO Q12H 5 days #10 ca ps 09/16/24 monohydrate/macrocrystals 100 mg capsule (Macrobid) Allergies Allergy/AdvReac Type Severity Reaction Status Date / Time cefdinir Allergy ALGY-Anaphy Verified 09/16/24 09:50 laxis Review of Systems 2 General: Reports: 10 or more systems reviewed and unremarkable except in HPI and below Const: Denies: fever(s), chills or fatigue Eyes: Denies: change in vision ENMT: Denies: throat pain, ear or mastoid pain or nasal discharge Card: Denies: chest pain, palpitations, swelling of feet/ankles or lightheadedness Resp: Denies: dyspnea, productive cough or wheezing GI: Denies: abdominal pain, nausea, vomiting, diarrhea or constipation : Denies: flank pain, difficulty voiding, dysuria or urinary frequency Musc: Denies: neck pain, back pain or joint pain Skin/Breast: Denies: rash Neuro: Denies: headache(s), numbness in extremities or weakness in extremities Psych: Reports: anxiety, depression and suicidal ideation; Denies: difficulty concentrating, visual hallucinations, auditory hallucinations, tactile hallucinations or homicidal ideation PFSH ED 2 PFSH: Medical History Psychiatric care Nicotine dependence due to vaping tobacco product Nicotine dependence, cigarettes, uncomplicated Major depressive disorder, recurrent severe without psychotic features Marijuana dependence Methamphetamine use disorder, severe, in sustained remission Post-traumatic stress disorder, chronic DOUGLAS (hard of hearing) Fibromyalgia Lumbar post-laminectomy syndrome Lumbar disc disease Hypothyroidism Surgical History Hx of colonoscopy x3 History of surgery on arm left forearm and right shoulder H/O tubal ligation History of lumbar surgery Family History Grandmother No problems noted. Grandfather No problems noted. Father Diabetes Hyperchloremia Mother Diabetes Stroke Thyroid disease Hyperchloremia Hypertension Family/Other Breast cancer Paternal aunt Sister Thyroid disease Other Ovarian cancer Denies family history of Colon cancer Heart disease Uterine cancer Social History Smoking and tobacco/nicotine status: current every day tobacco/nicotine user Alcohol intake: current Alcohol intake frequency: holidays/special occasions only Alcohol type: beer Substance/Drug Use: former Additional social history: Former Meth use. Current Marijuana use Adopted: No Caregiver/support person: No Lives independently: Yes Housing: Apartment Marital status: Legally Number of children: 3 Number of grandchildren: 2 Highest education level completed: 11th Grade service: No Current occupational status: unemployed Current occupational exposures/hazards: No Pets and animals: No Leisure activites: exercise and other Leisure activities details: arts and crafts Sexually active: No Do you think of yourself as: Straight/Heterosexual Current gender identity: Female Rubi/Lutheran: Confucianism Special rubi needs: No Agree to transfusion: Yes Female Reproductive History: Para: 3 Spontaneous abortions: Yes Physical Exam 2 Const: COMMON NORMALS: no acute distress, average body habitus, patient oriented x3, no limitations, healthy appearing, alert and well nourished G ENERAL APPEARANCE: cooperative and comfortable ORIENTATION/CONSCIOUSNESS: Yes awake HENMT: COMMON NORMALS: normocephalic, atraumatic, hearing grossly normal bilaterally, external ears normal, Normal external nose present, Normal nasal mucous membranes and turbinates present and moist oral mucous membranes HEAD & SCALP: normocephalic and atraumatic NOSE: Normal external nose present and Normal nasal mucous membranes and turbinates present EXTERNAL EAR: Yes external ears normal Eye: COMMON NORMALS: Equal, round and reactive pupils present, EOMs intact bilaterally, conjunctivae normal and normal visual whaley by confrontation C ONJUNCTIVA: Yes conjunctivae normal PUPIL: Yes Equal, round and reactive pupils present Neck/C-Spine: COMMON NORMALS: full ROM, supple, no meningeal signs and no JVD Resp: COMMON NORMALS: normal respiratory effort, No retractions, No use of accessory muscles and clear to auscultation bilaterally AUSCULTATION: clear to auscultation bilaterally, no crackles, no rales, no rhonchi and no wheezes Cardio: COMMON NORMALS: no JVD, regular rate, regular rhythm, S1 normal heart sound present, S2 normal heart sound present, No gallops present (Cardio), No clicks present (Cardio), No murmurs present (Cardio), No rub (Cardio) and Peripheral pulses 2+ throughout RATE: regular rate RHYTHM: regular rhythm HEART SOUNDS: S1 normal heart sound present and S2 normal heart sound present PERIPHERAL PULSES: Peripheral pulses 2+ throughout Extremity: COMMON NORMALS: normal to inspection and full ROM Neuro: COMMON NORMALS: patient oriented x3, moves all extremities, no focal motor deficits and no sensory deficits noted SENSORIUM/ORIENTATION: Yes alert MENINGEAL SIGNS: Yes no meningeal signs Psych: APPEARANCE: Yes unkempt ATTITUDE: Yes agitated ACTIVITY/MOTOR BEHAVIOR: Yes appropriate eye contact MOOD & AFFECT: Yes anxious THOUGHT CONTENT: Yes Suicidality present, No Homicidality present and No Hallucination(s) present Skin: COMMON NORMALS: no rashes or lesions noted GENERAL SKIN EXAM: no rashes or lesions noted Course 2 Vital Signs: Vital signs: Vital Signs Temperature 98.4 F 10/28/24 21:44 Pulse Rate 79 10/28/24 21:44 Respiratory Rate 19 H 10/28/24 21:44 Blood Pressure 138/79 10/28/24 21:44 Pulse Oximetry 98 10/28/24 21:44 Oxygen Delivery Me thod Room Air 10/28/24 21:44 MDM - Psych Medical Decision Making Patient presenting with suicidal ideations, history of similar, no specific plan, however states she has had multiple plans recently but does not remember them. Requesting that she be seen in inpatient psychiatry, does not feel safe at home. Has been taking her medications. She is cleared medically, potassium was low she is given p.o. potassium here for replenishment. Dr. Dawson excepting to the neuropsychiatric unit. Lab Data 10/28/24 22:03 10/28/24 22:03 Laboratory Results WBC 13.32 10^3/uL (3.29-11.43) H 10/28/24 22:03 RBC 3.95 10^6/uL (3.85-5.65) 10/28/24 22:03 Hgb 12.30 g/dL (11.27-16.99) 10/28/24 22:03 Hct 35.8 % (36-47) L 10/28/24 22:03 MCV 90.6 fl (85-98) 10/28/24 22:03 MCH 31.1 pg (27-33) 10/28/24 22:03 MCHC 34.4 g/dL (30-55) 10/28/24 22:03 RDW 13.3 % (12.1-15.1) 10/28/24 22:03 Plt Count 527 10^3/cmm (157-399) H 10/28/24 22:03 MPV 8.4 fL (7.4-10.4) 10/28/24 22:03 Neut % (Auto) 59.7 % 10/28/24 22:03 Lymph % (Auto) 30.1 % 10/28/24 22:03 Wake % (Auto) 6.2 % 10/28/24 22:03 Eos % (Auto) 1.7 % 10/28/24 22:03 Baso % (Auto) 1.0 % 10/28/24 22:03 Neut # (Auto) 7.96 10^3/uL (1.8-7.7) H 10/28/24 22:03 Lymph # (Auto) 4.0 10^3/uL (0.8-4.8) 10/28/24 22:03 Wake # (Auto) 0.8 10^3/uL (0.2-0.9) 10/28/24 22:03 Eos # (Auto) 0.2 10^3/uL (0.0-0.8) 10/28/24 22:03 Baso # (Auto) 0.1 10^3/uL (0.0-0.1) 10/28/24 22:03 Nucleated RBC % (auto) 0 % 10/28/24 22:03 Nucleated RBCs # 0.0 /100WBC 10/28/24 22:03 Sodium 132 mmol/L (136-145) L 10/28/24 22:03 Potassium 2.9 mmol/L (3.5-5.1) L 10/28/24 22:03 Chloride 93 mmol/L (98-107) L 10/28/24 22:03 Carbon Dioxide 26 mmol/L (22-29) 10/28/24 22:03 Anion Gap 15.9 (5-19) 10/28/24 22:03 BUN 12 mg/dL (6-20) 10/28/24 22:03 Creatinine 0.6 mg/dL (0.5-0.9) 10/28/24 22:03 GFR Calculation 103.4 mL/min (90-130) 10/28/24 22:03 Glucose 121 mg/dL (65-115) H 10/28/24 22:03 Calculated Osmolality 275 mOsm/kg (285-295) L 10/28/24 22:03 Calcium 9.2 mg/dL (8.5-10.5) 10/28/24 22:03 Total Bilirubin 0.3 mg/dL (0.15-1.2) 10/28/24 22:03 AST 16 U/L (0-32) 10/28/24 22:03 ALT 14 U/L (0-33) 10/28/24 22:03 Alkaline Phosphatase 104 U/L (35-105) 10/28/24 22:03 Total Protein 6.8 g/dL (6.6-8.7) 10/28/24 22:03 Albumin 4.1 g/dL (3.5-5.2) 10/28/24 22:03 Globulin 2.7 g/dL (1.3-4.6) 10/28/24 22:03 Salicylates < 0.3 mg/dL (3-10) L 10/28/24 22:03 Acetaminophen < 5.0 ug/mL (10-30) L 10/28/24 22:03 Ethyl Alcohol < 10 mg/dL (0-10) 10/28/24 22:03 No radiology studies performed this visit Discharge Plan Discharge Patient Disposition: Admitted As Inpatient Clinical Impression: Suicidal ideation Condition: Stable Coding Level of Care Code ED [employer]ie Inspector for Remington Parada
[2024-10-28 22:50] LABS: Acetaminophen < 5.0 ug/mL (10-30); Alcohol Level < 10 mg/dL (0-10); Potassium 2.9 mmol/L (3.5-5.1); Salicylate < 0.3 mg/dL (3-10)
[2024-10-28 23:35] LABS: Add Urine Microscopic? NO
[2024-10-28 23:39] LABS: Glucose Urine UA Negative (Normal); Nitrate Urine Negative (Negative); Specific Gravity, Urine 1.010 (1.005-1.030)
[2024-10-28 23:50] LABS: Charge for UA Resulting for Rev
[2024-10-28 23:54] VITALS: BP 154/88; PULSE 78; RESP 18; O2SAT 97
[2024-10-29 00:02] LABS: PCP Screen Urine Negative (Negative)
--- NOTE | 2024-10-29 06:32 | PC.NURSE ---
vitals not done, nurse aware, resp 18
[2024-10-29 08:42] LABS: Potassium 3.9 mmol/L (3.5-5.1)
[2024-10-29 14:00] VITALS: BP 143/78; PULSE 77; RESP 16; TEMP 36.4; O2SAT 98
--- NOTE | 2024-10-29 16:07 | P.NPUHP_ITS ---
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 08:03 A&P Assessment and plan 1. Panic attacks: 2. Major depressive disorder: 3. Depression with suicidal ideation: 4. Suicidal ideation: Plan: This is a 58-year-old female who is known through inpatient and outpatient services most recently here a few months ago once again presenting endorsing pain as almost a primary issue with significant difficulty with hearing making the communication process quite difficult having stated that if her pain was not managed she wanted to . 1. Continue current medication. 2. Obtain collateral information. 3. Encourage individual, group and milieu therapy 4. Continue q-15 minute check for safety 5. Recommend sober living treatment at the highest level of care to which the patient is willing to commit. PDMP PDMP Reviewed: Not Reviewed Involuntary Hold Information 2 Hold Status: Date/Time Hold Expires: voluntary 96 Hour Hold: 96 Hour Involuntary Admission: No Attestations NPU 2 Medical Necessity Statement*: Inpatient hospitalization is medically necessary and the clinically appropriate intervention ?at this time.? We will monitor/initiate medications and make changes as indicated.? The patient will be hospitalized for at least two midnights. The patient?s likely length of stay 3-5 days. Coding Level of Care Code Acute Code for [facility] Fwd Diagnoses Panic attacks F41.0 Mild episode of recurrent major depressive disorder F33.0 Active/Remission status: currently active Major depression episode severity: mild Major depression recurrence: recurrent Depression with suicidal ideation F32.A; R45.851 Suicidal ideation R45.851
[2024-10-29] MEDS: quetiapine XR (24HR) 50 mg Tablet 100 MG PO (17:16)
--- NOTE | 2024-10-29 20:22 | PC.NURSE ---
pt refused vs, nurse notified, resp 18
--- NOTE | 2024-10-30 06:41 | PC.NURSE ---
pt refused vs, nurse notified, resp 20
[2024-10-30 13:59] VITALS: BP 132/92; PULSE 89; RESP 16; TEMP 36.6; O2SAT 95
[2024-10-30] MEDS: quetiapine XR (24HR) 50 mg Tablet 100 MG PO (17:31)
--- NOTE | 2024-10-30 18:34 | P.NPUPN_ITS ---
Subjective NPU 2 Subjective: Patient presented today reporting that she is doing horribly. She continues to be quite agitated per staff reports and direct observation. She reports that her drug use restarted in March or maybe 3 months ago she was very evasive about when she started using again and denied any significant use reporting that she is using again but not that much. We discussed that her drug use could explain her irritability. And she reports that I am just a mean cunt. She reports that it is useless and nothing really get better as this parts data writer inquired about suicidal statements that she reportedly made earlier. She reports that she is just in pain and is tired of it. She denied any specific side effects to her medication. Mental Status Exam 2 MSE Comments: This is an underweight white female in hospital scrubs with limited grooming and but adequate eye contact. No abnormal movements except for psychomotor agitation. She is hard of hearing requiring clear and directed speech and significant repetition before she understands. Cooperative with exam in mild to moderate distress. Speech was slightly decreased rate and volume. Mood described as overwhelmed, affect is congruent, tearful and anxious.? Thought process: linear and logical.?Thought content: patient denies homicidal ideation, no delusions reported or noted and did not appear to be attending to internal stimuli. Attention and concentration: intact.??Memory appeared mostly reliable. She is alert and oriented times 3. ? Insight and judgment limited. ? Impulse control is impaired. Vitals/I&O/Wt Last Vital Signs Temp 98 F 10/30/24 13:59 Pulse 89 10/30/24 13:59 Resp 16 10/30/24 13:59 BP 132/92 10/30/24 13:59 Pulse Ox 95 10/30/24 13:59 O2 Del Method Room Air 10/30/24 13:59 Weight last 48 hrs Weight 55.508 kg Data NPU 10/28/24 22:03 10/29/24 08:03 A&P Assessment and plan 1. Panic attacks: 2. Major depressive disorder: 3. Depression with suicidal ideation: 4. Suicidal ideation: Plan: This is a 58-year-old female who is known through inpatient and outpatient services most recently here a few months ago once again presenting endorsing pain as almost a primary issue with significant difficulty with hearing making the communication process quite difficult having stated that if her pain was not managed she wanted to . 1. Continue current medication. 2. Obtain collateral information. 3. Encourage individual, group and milieu therapy 4. Continue q-15 minute check for safety 5. Recommend sober living treatment at the highest level of care to which the patient is willing to commit. PDMP PDMP Reviewed: Not Reviewed Involuntary Hold Information 2 Hold Status: Date/Time Hold Expires: voluntary 96 Hour Hold: 96 Hour Involuntary Admission: No Attestations NPU 2 Medical Necessity Statement*: Inpatient hospitalization is medically necessary and the clinically appropriate intervention ?at this time.? We will monitor/initiate medications and make changes as indicated.? Likely length of stay 3-5 days. Coding Level of Care Code Acute Code for [facility] Fwd Diagnoses Panic attacks F41.0 Mild episode of recurrent major depressive disorder F33.0 Active/Remission status: currently active Major depression episode severity: mild Major depression recurrence: recurrent Depression with suicidal ideation F32.A; R45.851 Suicidal ideation R45.851
--- NOTE | 2024-10-30 21:47 | PC.NURSE ---
vs not completed per nurse resp 16
[2024-10-31 06:00] VITALS: BP 174/98; PULSE 82; RESP 21; O2SAT 98; BMI 19.7
[2024-10-31 09:26] VITALS: BP 174/98
--- NOTE | 2024-10-31 09:34 | PC.NURSE ---
Pt is very tearful this morning, pt seems forgetful and confused at times. all pt's current needs are met.
[2024-10-31 14:00] VITALS: BP 132/75; PULSE 70; RESP 16; TEMP 36.7; O2SAT 97
--- NOTE | 2024-10-31 14:29 | P.NPUPN_ITS ---
Subjective NPU 2 Subjective: Patient presents today reporting that she is a little better than yesterday. She continued to have somatic complaints and limited mental health concerns outside of meals that for start with whether or not he is having adequate management of what ever ailment she brings to attention. She continues to be ambivalent about any intents treatment moving forward. Mental Status Exam 2 MSE Comments: This is an underweight white female in hospital scrubs with limited grooming and but adequate eye contact. No abnormal movements except for psychomotor agitation. She is hard of hearing requiring clear and directed speech and significant repetition before she understands. Cooperative with exam in mild to moderate distress. Speech was slightly decreased rate and volume. Mood described as overwhelmed, affect is congruent, tearful and anxious.? Thought process: linear and logical.?Thought content: patient denies homicidal ideation, no delusions reported or noted and did not appear to be attending to internal stimuli. Attention and concentration: intact.??Memory appeared mostly reliable. She is alert and oriented times 3. ? Insight and judgment limited. ? Impulse control is impaired. Vitals/I&O/Wt Last Vital Signs Temp 98.0 F 10/31/24 14:00 Pulse 70 10/31/24 14:00 Resp 16 10/31/24 14:00 BP 132/75 10/31/24 14:00 Pulse Ox 97 10/31/24 14:00 O2 Del Method Room Air 10/31/24 14:00 Weight last 48 hrs Weight 55.508 kg Data NPU 10/28/24 22:03 10/29/24 08:03 A&P Assessment and plan 1. Panic attacks: 2. Major depressive disorder: 3. Depression with suicidal ideation: 4. Suicidal ideation: Plan: This is a 58-year-old female who is known through inpatient and outpatient services most recently here a few months ago once again presenting endorsing pain as almost a primary issue with significant difficulty with hearing making the communication process quite difficult having stated that if her pain was not managed she wanted to . 1. Continue current medication. 2. Obtain collateral information. 3. Encourage individual, group and milieu therapy 4. Continue q-15 minute check for safety 5. Recommend sober living treatment at the highest level of care to which the patient is willing to commit. PDMP PDMP Reviewed: Not Reviewed Involuntary Hold Information 2 Hold Status: Date/Time Hold Expires: voluntary 96 Hour Hold: 96 Hour Involuntary Admission: No Attestations NPU 2 Medical Necessity Statement*: Inpatient hospitalization is medically necessary and the clinically appropriate intervention ?at this time.? We will monitor/initiate medications and make changes as indicated.? Likely length of stay 2-4 days. Coding Level of Care Code Acute Code for [facility] Fwd Diagnoses Panic attacks F41.0 Mild episode of recurrent major depressive disorder F33.0 Active/Remission status: currently active Major depression episode severity: mild Major depression recurrence: recurrent Depression with suicidal ideation F32.A; R45.851 Suicidal ideation R45.851
[2024-10-31] MEDS: quetiapine XR (24HR) 50 mg Tablet 100 MG PO (17:08)
[2024-10-31 19:51] VITALS: BP 153/84; PULSE 69; RESP 18; TEMP 36.5; O2SAT 96
--- NOTE | 2024-11-01 06:35 | PC.NURSE ---
pt refused vs, resp 16
--- NOTE | 2024-11-01 13:07 | P.NPUPN_ITS ---
Subjective NPU 2 Subjective: Patient presented today reporting that she is feeling a little better. She is endorsing being amenable to going to a sober living facility. She continues to struggle with her hearing at times. We discussed whether or not her hearing aid is accessible and something that she is capable of wearing daily. We reviewed the importance of her being able to participate in programming when it is time for rehab considerations. Denied any side effects to her medications. Mental Status Exam 2 MSE Comments: This is an underweight white female in hospital scrubs with limited grooming and but adequate eye contact. No abnormal movements except for psychomotor agitation. She is hard of hearing requiring clear and directed speech and significant repetition before she understands. Cooperative with exam in mild to moderate distress. Speech was slightly decreased rate and volume. Mood described as a little better than yesterday, affect is congruent, .? Thought process: linear and logical.?Thought content: patient denies homicidal ideation, no delusions reported or noted and did not appear to be attending to internal stimuli. Attention and concentration: intact.??Memory appeared mostly reliable. She is alert and oriented times 3. ? Insight and judgment limited. ? Impulse control is impaired. Vitals/I&O/Wt Last Vital Signs Temp 97.7 F 10/31/24 19:51 Pulse 69 10/31/24 19:51 Resp 18 10/31/24 19:51 BP 153/84 10/31/24 19:51 Pulse Ox 96 10/31/24 19:51 O2 Del Method Room Air 10/31/24 19:51 Weight last 48 hrs Weight 55.508 kg Data NPU 10/28/24 22:03 10/29/24 08:03 A&P Assessment and plan 1. Panic attacks: 2. Major depressive disorder: 3. Depression with suicidal ideation: 4. Suicidal ideation: Plan: This is a 58-year-old female who is known through inpatient and outpatient services most recently here a few months ago once again presenting endorsing pain as almost a primary issue with significant difficulty with hearing making the communication process quite difficult having stated that if her pain was not managed she wanted to . 1. Continue current medication. 2. Obtain collateral information. 3. Encourage individual, group and milieu therapy 4. Continue q-15 minute check for safety 5. Recommend sober living treatment at the highest level of care to which the patient is willing to commit. PDMP PDMP Reviewed: Not Reviewed Involuntary Hold Information 2 Hold Status: Date/Time Hold Expires: voluntary 96 Hour Hold: 96 Hour Involuntary Admission: No Attestations NPU 2 Medical Necessity Statement*: Inpatient hospitalization is medically necessary and the clinically appropriate intervention ?at this time.? We will monitor/initiate medications and make changes as indicated.? Likely length of stay 1-3 days. Coding Level of Care Code Acute Code for [facility] Fwd Diagnoses Panic attacks F41.0 Mild episode of recurrent major depressive disorder F33.0 Active/Remission status: currently active Major depression episode severity: mild Major depression recurrence: recurrent Depression with suicidal ideation F32.A; R45.851 Suicidal ideation R45.851
[2024-11-01 14:00] VITALS: BP 159/102; PULSE 81; RESP 16; TEMP 37.1; O2SAT 96
[2024-11-01] MEDS: quetiapine XR (24HR) 50 mg Tablet 100 MG PO (17:31)
[2024-11-01 20:41] VITALS: BP 150/83; PULSE 87; RESP 18; TEMP 36.4; O2SAT 95
[2024-11-02 06:00] VITALS: BP 162/82; PULSE 89; RESP 16; O2SAT 95
--- NOTE | 2024-11-02 07:17 | PC.NURSE ---
REST PATIENT HAS RESTED VERY WELL THIS NIGHT. PATIENT DID RECEIVE TYLENOL AND MOTRIN THIS NIGHT FOR BACK PAIN.
--- NOTE | 2024-11-02 12:48 | P.NPUDS_ITS ---
Diagnoses at Discharge Discharge Diagnosis 1. Panic attacks: 2. Mild episode of recurrent major depressive disorder: 3. Depression with suicidal ideation: 4. Suicidal ideation: Reason for Visit Reason for Visit: SI Involuntary Hold Information Hold Status: Date/Time Hold Expires: voluntary 96 Hour Hold: 96 Hour Involuntary Admission: No Discharge Data Studies Completed and Pending: Laboratory Results WBC 13.32 10^3/uL (3. 29-11.43) H 10/28/24 22:03 RBC 3.95 10^6/uL (3.8 5-5.65) 10/28/24 22:03 Hgb 12.30 g/dL (11.27 -16.99) 10/28/24 22:03 Hct 35.8 % (36-47) L 10/28/24 22:03 MCV 90.6 fl (85-98) 10/28/24 22:03 MCH 31.1 pg (27-33) 10/28/24 22:03 MCHC 34.4 g/dL (30-55) 10/28/24 22:03 RDW 13.3 % (12.1-15.1 ) 10/28/24 22:03 Plt Count 527 10^3/cmm (157 -399) H 10/28/24 22:03 MPV 8.4 fL (7.4-10.4) 10/28/24 22:03 Neut % (Auto) 59.7 % 10/28/24 22:03 Lymph % (Auto) 30.1 % 10/28/24 22:03 Toole % (Auto) 6.2 % 10/28/24 22:03 Eos % (Auto) 1.7 % 10/28/24 22:03 Baso % (Auto) 1.0 % 10/28/24 22:03 Neut # (Auto) 7.96 10^3/uL (1.8 -7.7) H 10/28/24 22:03 Lymph # (Auto) 4.0 10^3/uL (0.8- 4.8) 10/28/24 22:03 Toole # (Auto) 0.8 10^3/uL (0.2- 0.9) 10/28/24 22:03 Eos # (Auto) 0.2 10^3/uL (0.0- 0.8) 10/28/24 22:03 Baso # (Auto) 0.1 10^3/uL (0.0- 0.1) 10/28/24 22:03 Nucleated RBC % (a uto) 0 % 10/28/24 22:03 Nucleated RBCs # 0.0 /100WBC 10/28/24 22:03 Sodium 132 mmol/L (136-1 45) L 10/28/24 22:03 Potassium 3.9 mmol/L (3.5-5 .1) 10/29/24 08:03 Chloride 93 mmol/L (98-107 ) L 10/28/24 22:03 Carbon Dioxide 26 mmol/L (22-29) 10/28/24 22:03 Anion Gap 15.9 (5-19) 10/28/24 22:03 BUN 12 mg/dL (6-20) 10/28/24 22:03 Creatinine 0.6 mg/dL (0.5-0. 9) 10/28/24 22:03 GFR Calculation 103.4 mL/min (90- 130) 10/28/24 22:03 Glucose 121 mg/dL (65-115 ) H 10/28/24 22:03 Calculated Osmolal ity 275 mOsm/kg (285- 295) L 10/28/24 22:03 Calcium 9.2 mg/dL (8.5-10 .5) 10/28/24 22:03 Total Bilirubin 0.3 mg/dL (0.15-1 .2) 10/28/24 22:03 AST 16 U/L (0-32) 10/28/24 22:03 ALT 14 U/L (0-33) 10/28/24 22:03 Alkaline Phosphata se 104 U/L (35-105) 10/28/24 22:03 Total Protein 6.8 g/dL (6.6-8.7 ) 10/28/24 22:03 Albumin 4.1 g/dL (3.5-5.2 ) 10/28/24 22:03 Globulin 2.7 g/dL (1.3-4.6 ) 10/28/24 22:03 Urine Color Yellow (Yellow) 10/28/24 23:22 Urine Appearance Clear (CLEAR) 10/28/24 23:22 Urine pH 6.5 (5-7) 10/28/24 23:22 Ur Specific Gravit y 1.010 (1.005-1.0 30) 10/28/24 23:22 Urine Protein Negative (Negati ve) 10/28/24 23:22 Urine Glucose (UA) Negative (Normal ) 10/28/24 23:22 Urine Ketones Negative (Negati ve) 10/28/24 23:22 Urine Blood Negative (Negati ve) 10/28/24 23:22 Urine Nitrate Negative (Negati ve) 10/28/24 23:22 Urine Bilirubin Negative (Negati ve) 10/28/24 23:22 Urine Urobilinogen 1.0 mg/dL (Negati ve) 10/28/24 23:22 Ur Leukocyte Monica ase Negative (Negati ve) 10/28/24 23:22 Amorphous Sediment Not Reportable 10/28/24 23:22 Salicylates < 0.3 mg/dL (3-10 ) L 10/28/24 22:03 Urine Opiates Scre en Negative ng/mL (N egative) 10/28/24 23:22 Acetaminophen < 5.0 ug/mL (10-3 0) L 10/28/24 22:03 Ur Barbiturates Sc reen Negative ng/mL (N egative) 10/28/24 23:22 Ur Phencyclidine S crn Negative ng/mL (N egative) 10/28/24 23:22 Ur Amphetamines Sc reen Positive ng/mL (N egative) H 10/28/24 23:22 U Benzodiazepines Scrn Positive ng/mL (N egative) H 10/28/24 23:22 Urine Cocaine Scre en Negative ng/mL (N egative) 10/28/24 23:22 U Marijuana (THC) Screen Positive ng/mL (N egative) H 10/28/24 23:22 Ethyl Alcohol < 10 mg/dL (0-10) 10/28/24 22:03 Vitals: Last Vital Signs Temp 97.6 F 11/01/24 20:41 Pulse 89 11/02/24 06:00 Resp 16 11/02/24 06:00 BP 162/82 11/02/24 06:00 Pulse Ox 95 11/02/24 06:00 O2 Del Method Room Air 11/01/24 14:00 Discharge Plan Discharge Patient Disposition: Home Condition: Stable Prescriptions: Continued fluoxetine 40 mg capsule 80 mg PO QAM Qty: 60 6RF Rx Instructions: Take two capsules every morning hydroxyzine pamoate 25 mg capsule 50 mg PO BID PRN (Reason: Anxiety) Qty: 60 4RF Rx Instructions: May take two capsules twice per day as needed for anxiety quetiapine 50 mg tablet extended release 24 hr 100 mg PO 1800 Qty: 60 6RF Rx Instructions: Take two tablets at 6 pm ipratropium bromide 21 mcg (0.03 %) spray,non-aerosol 2 spray intranasal BID Qty: 30 1RF Rx Instructions: administer into each nostril methenamine hippurate 1 gram tablet 1 g PO BID Qty: 180 2RF meloxicam 15 mg tablet 15 mg PO DAILY Qty: 30 5RF levothyroxine 100 mcg tablet 100 mcg PO DAILY Qty: 90 1RF omeprazole 20 mg capsule,delayed release(DR/EC) 20 mg PO DAILY Qty: 90 3RF trazodone 100 mg tablet 100 mg PO BEDTIME PRN (Reason: Sleep) clonidine HCl 0.1 mg tablet 0.1 mg PO BID PRN (Reason: elevated BP) Qty: 60 3RF Rx Instructions: May take one tablet up to twice per day as needed for Systolic BP of 160 or higher Discharge Order = DC NOW: Discharge Order (Routine); Ordered 11/02/24 Ordered By: Royal Dawson Referrals: Arline Johns PMHNP [Staff Physician, Psychiatry] - 11/08/24 11:30 am Walker Villarreal MD [Primary Care Provider, Family Practice] Discharge Diet: Regular Discharge Activity: Resume usual activity Patient Instructions: Opioid Safety, Patient Portal & [employer]fe[employer] Instructions Discharge Attestations NPU Time Spent in Discharge Care*: less than 30 min Specific Discharge Activities: Specific discharge activities: educating patient, discussing with employment evaluator/case manager/social workers/dc planners, documenting/other paperwork and evaluating patient/reviewing data Coding Level of Care Code Acute Code for [facility] Fwd Diagnoses Panic attacks F41.0 Mild episode of recurrent major depressive disorder F33.0 Major depression recurrence: recurrent Active/Remission status: currently active Major depression episode severity: mild Depression with suicidal ideation F32.A; R45.851 Suicidal ideation R45.851
[2024-11-02 14:36] VITALS: BP 162/82; PULSE 95; RESP 18; TEMP 36.4; O2SAT 95
== END 2024-11-02 14:54 | disposition home or self-care (01) | DRG 885 ==
LOC: ER 23:27 → NP 23:42
PROVIDERS: Emergency Medicine; Admitting Provider Psychiatry & Neurology Psychiatry; Emergency Provider Physician Assistant; PCP Family Medicine; Visit Provider Psychiatry & Neurology Psychiatry
DX: F33.0 Major depressive disorder, recurrent, mild (principal); R45.851 Suicidal ideations; F41.0 Panic disorder [episodic paroxysmal anxiety]; H91.90 Unspecified hearing loss, unspecified ear; F10.11 Alcohol abuse, in remission; Z91.51 Personal history of suicidal behavior; E03.9 Hypothyroidism, unspecified; J44.9 Chronic obstructive pulmonary disease, unspecified; F41.9 Anxiety disorder, unspecified; F17.210 Nicotine dependence, cigarettes, uncomplicated; F17.290 Nicotine dependence, other tobacco product, uncomplicated; F43.12 Post-traumatic stress disorder, chronic; M79.7 Fibromyalgia; M51.9 Unspecified thoracic, thoracolumbar and lumbosacral intervertebral disc disorder; Z83.3 Family history of diabetes mellitus; Z80.3 Family history of malignant neoplasm of breast; Z80.41 Family history of malignant neoplasm of ovary; Z82.3 Family history of stroke; Z82.49 Family history of ischemic heart disease and other diseases of the circulatory system; R63.6 Underweight
CPT/HCPCS: 36415; 80053; 80306; 80307; 81003; 84132; 85025; 97150; 97165; J9999; Q0162

== ENCOUNTER → 2025-02-07 15:21 | Outpatient (BNVA) | payer SELFPAY ==
[2024-11-08 09:24] VITALS: BP 129/90; BMI 22.6
== END ==
PROVIDERS: PCP Family Medicine; Visit Provider Family Medicine
DX: E78.2 Mixed hyperlipidemia (principal); E03.9 Hypothyroidism, unspecified; R39.9 Unspecified symptoms and signs involving the genitourinary system
CPT/HCPCS: 80053; 80061; 81000; 84439; 84443; 85025

== ENCOUNTER 2025-02-14 05:00 | Outpatient (RCR) | payer MEDICAID, SELFPAY ==
[2025-02-16 11:56] VITALS: BP 132/84; BMI 22.5
== END 2025-03-16 23:59 | disposition home or self-care (01) ==
LOC: SPT 05:00
PROVIDERS: PCP Family Medicine; Visit Provider Family Medicine
DX: M54.50 Low back pain, unspecified (principal); G89.29 Other chronic pain
CPT/HCPCS: 97161